=== PATIENT | male | born 1950 | race Caucasian/White ===

== ENCOUNTER 2017-11-19 12:33 | Outpatient (CLI) | payer MEDICARE ==
--- NOTE | 2017-11-19 14:28 | RAD ---
PA AND LATERAL CHEST X-RAY: 11/19/2017 HISTORY: Dyspnea. COMPARISON: 08/05/2017 FINDINGS: The cardiac silhouette is mildly enlarged. The pulmonary vasculature is within normal limits. There is lucency again present within the right upper lobe and right lung apex, likely related to bullous emphysematous changes. There is an area of increased density again seen overlying the lateral left l doni base, probably related to an area of scarring or pleural thickening. There is slight blunting of the right lateral costophrenic angle, which could be related to a tiny right pleural effusion. The lungs are otherwise clear. Vascular calcification is again seen in the thoracic aorta. No other int erval change. IMPRESSION: 1. Suggestion of tiny right pleural effusion and atelectasis. 2. Mild chronic lung changes. 3. Cardiomegaly. 4. Post surgical changes, upper abdomen. POS: [facility]
== END 2017-11-19 12:34 | disposition home or self-care (01) ==
LOC: RAD 12:33
PROVIDERS: ATTEND Internal Medicine Critical Care Medicine
DX: R06.00 Dyspnea, unspecified (principal); I51.7 Cardiomegaly; Z98.890 Other specified postprocedural states
CPT/HCPCS: 71046

== ENCOUNTER 2017-12-26 06:50 | Outpatient (CLI) | payer MEDICARE ==
[2017-12-26 11:52] LABS: #Eosinphils 0.2 thou/uL (0.0-0.7); #Neutrophils 4.1 thou/uL (1.40-6.50); %Basophils 0.7 % (0.0-1.0); %Lymphocytes 27.4 % (21.0-51.0); %Monocytes 12.9 % (0.0-10.0); %Neutrophils 56.1 % (42.0-75.0); Hemoglobin 15.4 g/dL (14.0-18.0); Mean Corpuscular HGB CONC 32.6 g/dL (32.0-36.0); Mean Platelet Volume 6.8 fL (7.4-10.4); Platelet Count 245 thou/uL (130-400); RBC Distribution Width 13.1 % (11.5-14.5); White Blood Cell (WBC) Count 7.4 thou/uL (4.8-10.8)
[2017-12-26 12:36] LABS: Anion Gap 18 mmol/L (10-20); BUN (Urea Nitrogen) 26 mg/dL (8.4-25.7); Calc. Creatinine Clearance 0 mL/min (70-130); Calcium 9.5 mg/dL (7.8-10.44); Carbon Dioxide 27 mmol/L (23-31); Chloride 94 mmol/L (98-107); Estimated GFR-MDRD 50; Glucose 106 mg/dL (80-115); Potassium 3.6 mmol/L (3.5-5.1); Sodium 135 mmol/L (136-145)
== END 2017-12-26 06:51 | disposition home or self-care (01) ==
LOC: LAB 06:50
PROVIDERS: ATTEND Nurse Practitioner Family
DX: I50.20 Unspecified systolic (congestive) heart failure (principal); N18.2 Chronic kidney disease, stage 2 (mild)
CPT/HCPCS: 36415; 80048; 85025

== ENCOUNTER 2019-01-11 03:56 | Inpatient (IN) | payer MEDICARE ==
[2019-01-11 04:27] LABS: #Lymphocytes 0.7 thou/uL (1.20-3.40); #Monocytes 0.8 thou/uL (0.11-0.59); #Neutrophils 6.5 thou/uL (1.40-6.50); %Basophils 0.4 % (0.0-1.0); %Eosinophils 0.2 % (0.0-10.0); %Lymphocytes 9.1 % (21.0-51.0); %Monocytes 9.6 % (0.0-10.0); %Neutrophils 80.7 % (42.0-75.0); Hemoglobin 13.2 g/dL (14.0-18.0); Mean Corpuscular HGB CONC 33.3 g/dL (32.0-36.0); Mean Corpuscular Hemoglobin 30.4 pg (27.0-31.0); Mean Corpuscular Volume 91.5 fL (78.0-98.0); Mean Platelet Volume 7.1 fL (7.4-10.4); Platelet Count 201 thou/uL (130-400); RBC Distribution Width 12.4 % (11.5-14.5); Red Blood Cell (RBC) Count 4.35 mill/uL (4.70-6.10); White Blood Cell (WBC) Count 8.1 thou/uL (4.8-10.8)
[2019-01-11] MEDS ORDERED: methylPREDNISolone Sod Succ/PF 125 MG/2 ML VIAL ONE (04:37)
[2019-01-11 04:50] LABS: ALT (SGPT) 21 U/L (8-55); AST (SGOT) 21 U/L (5-34); Alkaline Phosphatase 84 U/L (40-150); Anion Gap 14 mmol/L (10-20); BUN (Urea Nitrogen) 16 mg/dL (8.4-25.7); Calc. Creatinine Clearance 0 mL/min (70-130); Calcium 8.9 mg/dL (7.8-10.44); Carbon Dioxide 25 mmol/L (23-31); Chloride 98 mmol/L (98-107); Estimated GFR-MDRD 60; Globulin 3.1 g/dL (2.4-3.5); Glucose 137 mg/dL (80-115); Potassium 3.5 mmol/L (3.5-5.1); Protein, Total 7.1 g/dL (5.8-8.1); Sodium 133 mmol/L (136-145)
[2019-01-11 05:12] LABS: CKMB 2.7 ng/mL (0-6.6)
[2019-01-11] MEDS ORDERED: Lorazepam 2 MG/ML VIAL ONE (05:13)
[2019-01-11] MEDS ORDERED: Digoxin 0.5 MG/2 ML AMP ONE (07:11)
[2019-01-11] MEDS ORDERED: Enoxaparin Sodium 100 MG/ML SYRINGE ONE (07:11)
[2019-01-11] MEDS ORDERED: Diltiazem 125 MG in Sodium Chloride 0.9% 100 ML IVPB SCH (07:45)
[2019-01-11 09:09] LABS: Troponin I 0.108 ng/mL (< 0.028)
[2019-01-11 09:31] LABS: Actual Bicarbonate (HCO3a) 24.2 mEq/L (22-28); Analyzer IN Cardio ER; Base Excess (BEa) -1.1 mEq/L (-2.0 to +3.0); CO2 Tension 42.9 mmHg (35.0-45.0); Calcium, Ionized 1.16 mmol/L (1.12-1.30); Carboxyhemoglobin (COHb) 1.4 gm% (0.0-3.0); Hemoglobin (Hb) 14.1 g/dL (14.0-18.0); O2 Tension (PaO2) 77.3 mmHg (> 80.0); Potassium - ABG Lab 3.71 mmol/L (3.70-5.30); pH, Arterial 7.37 (7.35-7.45)
[2019-01-11 09:35] LABS: ALV-art Gradient 68.715 (0-20); Puncture Site RRA
[2019-01-11] MEDS ORDERED: Acetaminophen 325 MG TAB PO PRN (09:38)
[2019-01-11] MEDS ORDERED: Nitroglycerin 0.4 MG TAB (25 Tab Bottle) PO PRN (09:38)
[2019-01-11] MEDS ORDERED: Ondansetron ODT 4 MG TAB PO PRN (09:38)
[2019-01-11] MEDS ORDERED: Senokot S 8.6-50 MG TAB PO PRN (09:38)
--- NOTE | 2019-01-11 10:06 | RAD ---
PORTABLE CHEST: Date: 01/11/19 HISTORY: Cough, dyspnea. COMPARISON: 12/08/17 study. FINDINGS: Heart size is enlarged. There are atherosclerotic changes of the aorta. The lungs are clear of infilt rates. No signs of failure. IMPRESSION: Cardiomegaly. POS: C
--- NOTE | 2019-01-11 10:57 | HP ---
PRIMARY CARE PHYSICIAN: Dr. Moody Whipple. REASON FOR CONSULTATION: Worsening shortness of breath. HISTORY OF PRESENT ILLNESS: A 68-year-old male with known history of COPD, chronic hypoxia, who is supposed to be on oxygen but not compliant, cardiomyopathy with last echo showing EF of 25% to 30%, who presents to the ER with worsening shortness of breath since 3 to 4 days prior to presentation. The patient reportedly developed upper respiratory infection associated with fever and chills as well as cough and shortness of breath about 4 days ago. This was associated with worsening shortness of breath, which gets worse after coughing spell. He also reported pleuritic chest pain. He has been compliant with oxygen therapy, but earlier today symptoms got worse, such that he had difficulty breathing, hence he presented to the emergency room. On presentation, the patient was found to have tachycardia, tachypnea and further evaluation with EKG showed atrial fibrillation with rapid ventricular response. The patient received Cardizem IV push 10 mg, which was subsequently associated with drop in blood pressure to low 100s, hence loading dose of digoxin was given. He also received Lovenox anticoagulation given mild elevation in troponin as well as Solu-Medrol and . He was subsequently started on Cardizem infusion. Noteworthy, the patient was afebrile on presentation. He continues to have cough. He denied worsening shortness of breath, orthopnea, palpitations, PND, focal weakness, headache, nausea, vomiting, change in bowel habit, hematochezia, hematemesis, or melena. He admitted to mild dysuria, but denied hematuria. PAST MEDICAL HISTORY: 1. COPD. 2. Chronic hypoxia, on home oxygen. 3. Cardiomyopathy with ejection fraction of 25% to 30% on last echo. 4. Obesity, status post gastric bypass. 5. Type 2 diabetes mellitus, which resolved after gastric bypass. PAST SURGICAL HISTORY: Gastric bypass. 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 He is a former smoker. Used to smoke two packs per day for about 45 years, quit about 6 years ago. He lives with family. He wants to be full code with son being the surrogate decision maker. FAMILY HISTORY: Reviewed, but noncontributory. ALLERGIES: NO KNOWN DRUG ALLERGIES REPORTED. HOME MEDICATIONS: 1. Advil PM one daily at bedtime as needed. 2. Flomax 0.4 mg daily at bedtime. 3. Aspirin 81 mg daily. 4. Lipitor 10 mg daily at bedtime. 5. Coreg 6.25 b.i.d. 6. Furosemide 40 mg b.i.d. 7. Lisinopril 5 mg p.o. daily. 8. Dulera one puff inhalation b.i.d. REVIEW OF SYSTEMS: A 12-point review of system performed was negative other than pertinent positives and negatives included in the history of present illness. PHYSICAL EXAMINATION: VITAL SIGNS: Initial vitals on presentation to the ER showed BP of 102/68, pulse 116, respiratory rate 22, SpO2 93 on room air, temperature 98.6. Most current vitals showed BP 121/88, pulse 114, respiratory rate 18, temperature 98, SpO2 94 on 2 L nasal cannula. GENERAL: Obese male, in [id number] respiratory distress. Afebrile, anicteric, acyanotic. HEENT: Normocephalic, atraumatic. Pupils are reacting to light. Oral mucosa is moist. Conversational dyspnea noted. NECK: Supple. Nontender with good range of motion. No JVD or masses or lymphadenopathy appreciated. CARDIOVASCULAR: Irregular rhythm and rate with normal heart sounds one and two. Tachycardic. No obvious murmur was appreciated. RESPIRATORY: Diminished air movement with tachypnea and increased work of breathing appreciated. No obvious rhonchi was appreciated. GI: Obese, soft, nontender, nondistended with normal bowel sounds. EXTREMITIES: Grossly normal looking atraumatic with mild to moderate bilateral leg edema. Distal pulses were palpable. NEUROLOGIC: Conscious, alert, oriented x3 with appropriate mental status. Cranial nerves 2 through 12 are intact. The patient is conversational and moves all extremities. PSYCHIATRIC: Normal affect and cooperative. DIAGNOSTIC DATA: CBC showed WBC count of 8.1, hemoglobin of 13.2, MCV of 91.5, platelet of 201. CMP showed sodium 133, potassium 3.5, chloride 98, CO2 of 25, BUN 16, creatinine 1.20, glucose 137, calcium 8.9, total bilirubin 2.0, AST 21, ALT 21, alkaline phosphatase 84, total protein 7.1, albumin 4.0, globulin 3.1. Cardiac enzymes showed CK 22.7. Initial troponin 0.136. BNP 1518.1. Repeat troponin 4 hours later showed 0.108. EKG x3 showed atrial fibrillation with rapid ventricular response with rate ranging from 112 to 117. No obvious ischemic changes were noted. Chest x-ray reviewed by me showed cardiomegaly with no obvious lung opacity or consolidation or effusion. IMPRESSION: 1. Acute respiratory failure: This most likely due to chronic obstructive pulmonary disease exacerbation with possible contribution from congestive heart failure exacerbation. 2. Chronic obstructive pulmonary disease exacerbation. 3. Acute on chronic systolic heart failure: Etiology is unclear, but [id number] myocardial infarction and new onset atrial fibrillation seems likely. 4. Possible aof-IO-ecsksovbu myocardial infarction. 5. New onset atrial fibrillation with rapid ventricular response. 6. History of ventricular tachycardia. 7. Hyperglycemia. PLAN: 1. We will continue oxygen supplementation. 2. We will also start the patient on bronchodilators and steroids. 3. Antithrombotic therapy with Lovenox and aspirin will be commenced. 4. We will also get serial troponin. 5. Antibiotic therapy with Levaquin for COPD will also be commenced. 6. We will also get sputum culture. Cardiology consult will be requested. 7. We will also get echocardiogram to reassess cardiac function. 8. We will continue Cardizem infusion and to get adequate rate control. Heart healthy diet will be commenced. 9. Ethics: The patient wants to be full code. Son is the surrogate decision maker. Further treatment and recommendation to follow depending on hospital course. It is anticipated the patient will be hospitalized for more than 3 days. Job ID: [id number]
[2019-01-11] MEDS: Furosemide 40 MG TAB PO SCH (14:51)
[2019-01-11] MEDS ORDERED: Bacteriostatic Water 30 ML VIAL FS PRN (14:59)
[2019-01-11] MEDS ORDERED: methylPREDNISolone Sod Succ 40 MG VIAL IVP SCH (15:00)
[2019-01-11] MEDS: methylPREDNISolone Sod Succ/PF 125 MG/2 ML VIAL IVP SCH ×2 (15:00→15:05)
--- NOTE | 2019-01-11 17:47 | CON ---
DATE OF CONSULTATION: 01/11/2019 REASON FOR CONSULTATION: Atrial fibrillation and heart failure. HISTORY OF PRESENT ILLNESS: Mr. Pérez is a 68-year-old white gentleman, who comes to the hospital for worsening shortness of breath. He has a history of nonischemic cardiomyopathy. His EF last was at 25% to 30%. He was followed by Dr. Perez a year ago. He had a heart catheterization that showed mild coronary artery disease. Diagnosed with nonischemic cardiomyopathy. He was started on medications. Followup in the office, placed on a LifeVest. Three months later, repeat echo showed persistent reduced EF, so he was offered an AICD. 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 He comes in today as he has stopped all his medications for the last year and he was only taking the Lasix. He has noted worsening of his shortness of breath in the last few days. PAST MEDICAL HISTORY: 1. COPD. 2. Nonischemic cardiomyopathy, EF at 25% on most recent echo about a year ago. 3. Obesity. 4. Type 2 diabetes resolved after gastric bypass. SURGICAL HISTORY: 1. Gastric bypass. 2. Left heart catheterization. 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 No alcohol or drugs. FAMILY HISTORY: Noncontributory. OUTPATIENT MEDICATIONS: 1. Advil PM. 2. Flomax. 3. Aspirin 81 a day. 4. Lipitor 10 a day. 5. Coreg 6.25 b.i.d. 6. Lasix 40 mg b.i.d. 7. Lisinopril 5 mg a day. 8. Dulera inhalation. 9. He has not been taking any medication except Lasix. ALLERGIES: NO KNOWN DRUG ALLERGIES. REVIEW OF SYSTEMS: A 12-point review of systems was done and was all negative unless stated in the history of present illness. PHYSICAL EXAMINATION: VITAL SIGNS: Temperature 97.4, pulse 106, respiratory rate 25, saturating 94% on 2 L, and blood pressure 129/72. GENERAL: Awake, alert, oriented x3. No distress. HEENT: Normocephalic and atraumatic. NECK: Supple. LUNGS: Reduced breath sounds bilaterally. CARDIOVASCULAR: S1, S2. No S3 or S4. No murmurs. ABDOMEN: Soft. Positive bowel sounds. EXTREMITIES: 1+ edema. SKIN: Warm and dry. LABORATORY DATA: Laboratory work was reviewed. CBC, ABG and chemistries were reviewed. Troponin is indeterminate range at 0.1, 0.1. BNP was 1518. EKG was reviewed. Chest x-ray was reviewed. ASSESSMENT/PLAN: 1. Acute on chronic systolic heart failure. 2. Nonischemic cardiomyopathy, severely dilated LV with EF of 25% last evaluation a year ago. 3. Chronic obstructive pulmonary disease. 4. Noncompliance. PLAN: 1. Continue IV diuresis with IV Lasix. 2. He would be a candidate for an AICD. 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 3. Heart rate is in the 120s to 130s. It seems at times in sinus tachycardia. He may have a little bit of MS. He has had a lot of baseline artifact. It is very hard to tell. At times it looks like atrial fibrillation as well. 4. We will get an echocardiogram and we will get an EP consultation to see what thing about this rhythm. He may just need to be on amiodarone and a blood thinner. Thank you for letting us to participate in care of this patient. We will follow. Job ID: [id number]
[2019-01-11 18:23] LABS: Bilirubin Negative (Negative); Blood, Urine Negative (Negative); Clarity CLEAR (Clear); Glucose, Urine (Dipstick) 100 mg/dL (Negative); Leukocyte Negative (Negative); Nitrite Negative (Negative); Protein, Urine (Dipstick) Negative (Neg-Trace)
[2019-01-11 18:25] LABS: Bacteria/HPF None Seen HPF (None Seen); Hyaline Casts/LPF 0-3 HYALINE CAST LPF (0-3 Hyaline); RBC/HPF 0-3 HPF (0-3); Squamous Epithelial None Seen HPF (0-3); WBC/HPF None Seen HPF (0-3)
[2019-01-11 18:27] LABS: Urine Culture Reflex No No
[2019-01-11] MEDS ORDERED: methylPREDNISolone Sod Succ/PF 125 MG/2 ML VIAL IVP SCH (20:00)
[2019-01-11] MEDS ORDERED: Enoxaparin Sodium 80 MG/0.8 ML SYRINGE SC SCH (21:00)
[2019-01-11] MEDS: Atorvastatin Calcium 40 MG TAB PO SCH (21:26)
[2019-01-11] MEDS: guaiFENesin ER 600 MG TAB PO SCH (21:26)
[2019-01-11] MEDS: Famotidine 20 MG TAB PO SCH (21:26)
[2019-01-11] MEDS: Enoxaparin Sodium 100 MG/ML SYRINGE SC SCH (21:27)
[2019-01-11] MEDS: Tamsulosin HCl 0.4 MG CAP PO SCH (21:27)
[2019-01-11] MEDS: Famotidine/PF 20 mg/2ml Vial SLOW IVP SCH (21:27)
[2019-01-12] MEDS: methylPREDNISolone Sod Succ 40 MG VIAL IVP SCH ×3 (00:19→17:49)
[2019-01-12 05:20] LABS: #Lymphocytes 0.7 thou/uL (1.20-3.40); #Monocytes 0.5 thou/uL (0.11-0.59); #Neutrophils 6.3 thou/uL (1.40-6.50); %Eosinophils 0.1 % (0.0-10.0); %Lymphocytes 8.9 % (21.0-51.0); %Monocytes 7.2 % (0.0-10.0); %Neutrophils 83.8 % (42.0-75.0); Hemoglobin 12.7 g/dL (14.0-18.0); Mean Corpuscular HGB CONC 33.7 g/dL (32.0-36.0); Platelet Count 211 thou/uL (130-400); RBC Distribution Width 12.2 % (11.5-14.5); Red Blood Cell (RBC) Count 4.09 mill/uL (4.70-6.10); White Blood Cell (WBC) Count 7.5 thou/uL (4.8-10.8)
[2019-01-12 05:43] LABS: ALT (SGPT) 21 U/L (8-55); AST (SGOT) 27 U/L (5-34); Albumin 3.8 g/dL (3.4-4.8); Alkaline Phosphatase 72 U/L (40-150); Anion Gap 12 mmol/L (10-20); BUN (Urea Nitrogen) 20 mg/dL (8.4-25.7); Bilirubin, Total 1.2 mg/dL (0.2-1.2); Calc. Creatinine Clearance 85 mL/min (70-130); Calcium 8.8 mg/dL (7.8-10.44); Carbon Dioxide 28 mmol/L (23-31); Chloride 99 mmol/L (98-107); Estimated GFR-MDRD 66; Globulin 2.8 g/dL (2.4-3.5); Glucose 172 mg/dL (80-115); Protein, Total 6.6 g/dL (5.8-8.1); Sodium 135 mmol/L (136-145)
[2019-01-12] MEDS ORDERED: Chloraseptic Spray 180 ml Bottle PO PRN (08:22)
[2019-01-12] MEDS: Famotidine 20 MG TAB PO SCH ×2 (08:58→20:49)
[2019-01-12] MEDS: Aspirin Chewable 81 MG TAB PO SCH (08:58)
[2019-01-12] MEDS: guaiFENesin ER 600 MG TAB PO SCH ×2 (08:58→20:49)
[2019-01-12] MEDS: Furosemide 40 MG TAB PO SCH ×2 (08:59→14:40)
[2019-01-12] MEDS: Famotidine/PF 20 mg/2ml Vial SLOW IVP SCH ×2 (09:00→20:50)
[2019-01-12] MEDS: Enoxaparin Sodium 100 MG/ML SYRINGE SC SCH ×2 (09:01→20:50)
--- NOTE | 2019-01-12 11:11 | PDOC.PN ---
- Subjective Encounter Start Date: 01/12/19 Encounter Start Time: 11:09 Patient seen and examined, no new issues, states he's breathing a bit better. All questions answered. - Objective Resuscitation Status - Order Detail: 01/11/19 09:38 Resuscitation Status Routine Resuscitation Status: FULL: Full Resuscitation Vital Signs & Weight: Vital Signs (12 hours) Temp Pulse Resp BP Pulse Ox 01/12/19 08:59 94 L 01/12/19 07:42 97.4 F L 120 H 16 106/58 L 94 L 01/12/19 07:02 100 16 01/12/19 03:03 98.4 F 102 H 20 134/79 98 01/12/19 00:31 97 20 96 Weight Weight 210 lb 14.4 oz Result Diagrams: 01/12/19 05:05 01/12/19 05:05 Phys Exam - Physical Examination Constitutional: NAD HEENT: PERRLA, moist MMs, sclera anicteric Neck: no nodes Respiratory: no rales, no rhonchi, wheezing present (mild) Cardiovascular: no significant murmur, no rub, irregular Gastrointestinal: soft, non-tender, no distention Musculoskeletal: pulses present, edema present (trace) Dx/Plan (1) Afib Code(s): I48.91 - UNSPECIFIED ATRIAL FIBRILLATION Status: Acute (2) Left ventricular dysfunction with reduced left ventricular function Code(s): I51.9 - HEART DISEASE, UNSPECIFIED Status: Acute (3) CKD (chronic kidney disease) stage 3, GFR 30-59 ml/min Code(s): N18.3 - CHRONIC KIDNEY DISEASE, STAGE 3 (MODERATE) Status: Chronic (4) COPD (chronic obstructive pulmonary disease) Status: Chronic - Plan * cont steroids, taper down dose a bit today, still wheezing a bit * cardio also following * monitor for now * possible DC in 24-48hrs * case and plan d/w patient at length, he understood and agreed with this plan
[2019-01-12] MEDS ORDERED: Furosemide 40 MG/4 ML VIAL SLOW IVP SCH (16:30)
--- NOTE | 2019-01-12 18:28 | PDOC.CTH ---
Cardiology Progress Note - Subjective No new issues. Not diuresing well. - Objective Vital Signs Temp Pulse Resp BP Pulse Ox 01/12/19 16:11 98.2 F 150 H 20 144/72 H 93 L 01/12/19 13:42 130 H 18 01/12/19 12:41 97.9 F 131 H 24 H 135/65 95 01/12/19 08:59 94 L 01/12/19 07:42 97.4 F L 120 H 16 106/58 L 94 L 01/12/19 07:02 100 16 Weight 210 lb 14.4 oz - Physical Examination General/Neuro: alert & oriented x3, NAD Neck: no JVD present Lungs: unlabored respirations, other: (reduced breath sounds. ) Heart: other: (irreg oirreg) Abdomen: soft Extremities: + edema B (1+) - Telemetry Telemetry Rhythm: Afib HR 130's. - Labs Result Diagrams: 01/12/19 05:05 01/12/19 05:05 Troponin/CKMB CK-MB (CK-2) 2.7 ng/mL (0-6.6) 01/11/19 04:19 Troponin I 0.108 ng/mL (< 0.028) H 01/11/19 08:33 - Assessment/Plan 1. Afib RVR 2. Acute on chronic systolic heart failure. 3. Non ischemic dilatd CM EF 20-25% on echo yesterday. 4. COPD 5. Non compliance PLAN: - Still not rate controlled. Will start Amiodarone drip and will plan on SELWYN Cardioversion tomorrow. Continue full anticoagulation. - IV lasix. - Continues to not be interested in an AICD.
[2019-01-12] MEDS: Atorvastatin Calcium 40 MG TAB PO SCH (20:49)
[2019-01-12] MEDS: Tamsulosin HCl 0.4 MG CAP PO SCH (20:49)
[2019-01-13] MEDS: Furosemide 40 MG/4 ML VIAL SLOW IVP SCH ×2 (04:41→14:24)
[2019-01-13] MEDS: methylPREDNISolone Sod Succ 40 MG VIAL IVP SCH ×2 (05:30→18:15)
[2019-01-13] MEDS: Famotidine/PF 20 mg/2ml Vial SLOW IVP SCH ×2 (09:26→20:19)
[2019-01-13] MEDS: guaiFENesin ER 600 MG TAB PO SCH ×2 (09:26→20:18)
[2019-01-13] MEDS: Famotidine 20 MG TAB PO SCH ×2 (09:26→20:19)
[2019-01-13] MEDS: Enoxaparin Sodium 100 MG/ML SYRINGE SC SCH (09:26)
[2019-01-13] MEDS ORDERED: PROPOFOL 200 MG/20 ML VIAL ONE (11:07)
--- NOTE | 2019-01-13 11:12 | PDOC.PN ---
- Subjective Encounter Start Date: 01/13/19 Encounter Start Time: 11:10 Patient seen and examined, no new issues or complaints. All questions answered. - Objective Resuscitation Status - Order Detail: 01/11/19 09:38 Resuscitation Status Routine Resuscitation Status: FULL: Full Resuscitation Vital Signs & Weight: Vital Signs (12 hours) Temp Pulse Resp BP BP Pulse Ox 01/13/19 07:29 97.4 F L 135 H 18 106/79 97 01/13/19 06:44 90 16 01/13/19 03:11 97.7 F 123 H 16 102/66 93 L 01/13/19 00:37 117 H 16 94 L Weight Weight 210 lb 14.4 oz Result Diagrams: 01/12/19 05:05 01/12/19 05:05 Phys Exam - Physical Examination Constitutional: NAD HEENT: PERRLA, moist MMs, sclera anicteric Neck: no nodes Respiratory: no wheezing, no rales, no rhonchi Cardiovascular: no significant murmur, irregular Gastrointestinal: soft, non-tender, no distention, positive bowel sounds Musculoskeletal: pulses present, edema present Dx/Plan (1) Afib Code(s): I48.91 - UNSPECIFIED ATRIAL FIBRILLATION Status: Acute (2) Left ventricular dysfunction with reduced left ventricular function Code(s): I51.9 - HEART DISEASE, UNSPECIFIED Status: Acute (3) CKD (chronic kidney disease) stage 3, GFR 30-59 ml/min Code(s): N18.3 - CHRONIC KIDNEY DISEASE, STAGE 3 (MODERATE) Status: Chronic (4) COPD (chronic obstructive pulmonary disease) Status: Chronic - Plan * on Amio * cardioversion planned for today * no changes in plan of care for now * will taper steroids down to 20mg IV q12hrs for now and transition to PO in aM * cont current management of care * case and plan d/w patient at length, he understood and agreed with this plan
[2019-01-13] MEDS ORDERED: PROPOFOL 0 ML ONE (12:35)
[2019-01-13] MEDS ORDERED: Phenylephrine HCL 10 MG/ML VIAL ONE (12:36)
[2019-01-13] MEDS ORDERED: PROPOFOL 20 ML ONE (12:37)
[2019-01-13] MEDS ORDERED: Benzocaine 20% Spray 60 ML CAN ONE (12:39)
--- NOTE | 2019-01-13 13:10 | OP ---
DATE OF SERVICE: 01/13/19 PREPROCEDURE DIAGNOSIS: Atrial fibrillation with RVR. PROCEDURES PERFORMED: Direct current synchronized cardioversion. SUMMARY: The patient is a 68-year-old white gentleman who comes to the hospital for heart failure and atrial f ibrillation with RVR. He was brought down to the outpatient area for planned SELWYN cardioversion. SELWYN was done previously, please see notes for details. After the patient was fully sedated by the anesthesia department, one single AICD shock was delivered successfully converting him from atrial fibrillation into sinus rhythm with PACs. The patient tolera nancy the procedure well. RECOMMENDATIONS: Continued full anticoagulation. Amiodarone load. May go home in the next 24 to 48 hours.
[2019-01-13] MEDS: Aspirin Chewable 81 MG TAB PO SCH (14:24)
[2019-01-13] MEDS ORDERED: Amiodarone HCl 150 MG in Dextrose 5% in Water 100 ML IVPB SCH (18:15)
[2019-01-13] MEDS: Amiodarone 450 MG in Dextrose 5% in Water 250 ML IVPB SCH (18:40)
[2019-01-13] MEDS: Apixaban 5 MG TAB PO SCH (20:17)
[2019-01-13] MEDS: Tamsulosin HCl 0.4 MG CAP PO SCH (20:18)
[2019-01-13] MEDS: Atorvastatin Calcium 40 MG TAB PO SCH (20:18)
[2019-01-13] MEDS ORDERED: Amiodarone 200 MG TAB PO SCH (21:00)
[2019-01-14] MEDS ORDERED: Amiodarone 200 MG TAB PO SCH (02:00)
[2019-01-14] MEDS: Amiodarone 450 MG in Dextrose 5% in Water 250 ML IVPB SCH (03:34)
[2019-01-14] MEDS: methylPREDNISolone Sod Succ 40 MG VIAL IVP SCH ×2 (05:46→17:00)
[2019-01-14] MEDS: Ondansetron PF 4 MG/2 ML Vial IVP PRN ×2 (05:52→22:13)
[2019-01-14] MEDS: Furosemide 40 MG/4 ML VIAL SLOW IVP SCH (05:54)
[2019-01-14] MEDS: Famotidine/PF 20 mg/2ml Vial SLOW IVP SCH (08:41)
[2019-01-14] MEDS: Apixaban 5 MG TAB PO SCH (08:41)
[2019-01-14] MEDS: Famotidine 20 MG TAB PO SCH (08:41)
[2019-01-14] MEDS: guaiFENesin ER 600 MG TAB PO SCH (08:41)
[2019-01-14] MEDS: Carvedilol 3.125 MG TAB PO SCH ×2 (08:41→17:00)
[2019-01-14] MEDS: Aspirin Chewable 81 MG TAB PO SCH (08:41)
[2019-01-14 10:26] LABS: Hemoglobin 12.8 g/dL (14.0-18.0); Platelet Count 244 thou/uL (130-400)
[2019-01-14 10:50] LABS: Anion Gap 13 mmol/L (10-20); BUN (Urea Nitrogen) 39 mg/dL (8.4-25.7); Calc. Creatinine Clearance 59 mL/min (70-130); Carbon Dioxide 30 mmol/L (23-31); Chloride 93 mmol/L (98-107); Estimated GFR-MDRD 42; Glucose 240 mg/dL (80-115); Potassium 4.1 mmol/L (3.5-5.1); Sodium 132 mmol/L (136-145)
--- NOTE | 2019-01-14 16:34 | PRG ---
DATE OF SERVICE: 01/14/2019 SUBJECTIVE: A 68-year-old male with COPD, chronic hypoxic respiratory failure, and cardiomyopathy, was admitted on 01/11/2019 with worsening shortness of breath. His workup was consistent with COPD and CHF exacerbation. Echocardiogram was obtained, that showed ejection fraction of 20% to 25% with mild tricuspid regurgitation, moderately dilated left atrium. He has been evaluated by Cardiology this admission as well. He is currently on amiodarone drip for atrial fibrillation with rapid ventricular response. He underwent SELWYN cardioversion, converting into sinus rhythm. However, this morning, he is back in atrial fibrillation. He denies any chest pain. He continues to have shortness of breath. No cough or wheezing reported. REVIEW OF SYSTEMS: No nausea, vomiting, diarrhea, or focal neurologic deficit reported. CURRENT MEDICATIONS: Reviewed. The patient is on amiodarone drip along with; 1. Levaquin. 2. Eliquis. 3. Lipitor. 4. Carvedilol. 5. IV Lasix. OBJECTIVE: VITAL SIGNS: Temperature 97.2, pulse rate of 106, respirations of 18, blood pressure 127/64, and O2 saturation 92% on 2L nasal cannula. Intake of 465, output 1050, weight of 214 pounds. GENERAL: A 68-year-old male, in mild respiratory distress, able to complete short phrases. HEENT: Head, atraumatic and normocephalic. Sclerae anicteric. Moist mucous membranes. NECK: Supple. JVP elevated. No carotid bruit. LUNGS: Scattered rhonchi with rales at bases. Mild accessory muscle use. Lungs are symmetrical. HEART: S1 and S2 present. Irregularly irregular. A 2/6 systolic murmur over the mitral area. ABDOMEN: Soft and nontender. Bowel sounds present. EXTREMITIES: Bilateral lower extremity 1+ edema. No calf tenderness. NEUROLOGIC: Grossly nonfocal. Moves all 4 extremities. PSYCHIATRIC: Alert, awake, and oriented x3. LABORATORY DATA: Creatinine 1.63 with BUN 39, sodium 132, potassium 4.1, chloride 93, bicarb 30. Hemoglobin 12.8 and hematocrit 39.3. TSH 0.26. Urinalysis was negative. Respiratory culture showed many gram-positive cocci in pairs, chains, and clusters. Telemetry monitoring by my review showed atrial fibrillation. Chest x-ray from admission showed cardiomegaly. IMPRESSION: 1. Acute hypoxic respiratory failure secondary to congestive heart failure/chronic obstructive pulmonary disease exacerbation. 2. Acute on chronic systolic heart failure exacerbation. 3. Atrial fibrillation with rapid ventricular response. 4. Chronic anticoagulation. 5. Elevated troponin secondary to demand ischemia/type 2 myocardial infarction. 6. Acute kidney injury on chronic kidney disease, stage 2. 7. Chronic anemia. 8. History of diabetes mellitus, type 2. 9. Obesity with a body mass index of 30.8. 10. Hypertension. 11. Mild hyponatremia. 12. Abnormal liver function tests secondary to passive hepatic congestion, improving. PLAN: The patient will be monitored on the telemetry unit. We will continue IV steroids. We will consult Pulmonary, Dr. Rendon, due to persistent respiratory distress. Continue anticoagulation. Due to acute kidney injury, we will hold diuretic. Hold GADIEL inhibitor for now. We will adjust levofloxacin dose for renal insufficiency. We will recheck labs in a.m. Plan of care was discussed with the patient in detail. He stated understanding. Job ID: [id number]
[2019-01-14] MEDS: Melatonin 3 MG TAB PO PRN (16:59)
--- NOTE | 2019-01-14 17:21 | PDOC.CTH ---
Cardiology Progress Note - Subjective No new issues. - Objective Vital Signs Temp Pulse Resp BP BP Pulse Ox 01/14/19 15:05 97.5 F L 99 20 122/90 92 L 01/14/19 13:29 72 16 97 01/14/19 12:40 97.2 F L 106 H 18 127/64 92 L 01/14/19 07:33 112 H 16 95 01/14/19 07:15 97.3 F L 73 20 103/70 95 01/14/19 06:04 112 H 18 124/68 93 L Weight 214 lb 6.4 oz 01/13/19 01/14/19 01/15/19 06:59 06:59 06:59 Intake Total 465 Output Total 1050 Balance -585 - Physical Examination General/Neuro: alert & oriented x3, NAD Neck: no JVD present Lungs: unlabored respirations Heart: other: (Irreg irreg) Abdomen: NT/ND Extremities: + edema B (1+) - Telemetry Telemetry Rhythm: Afib HR 90-120 - Labs Result Diagrams: 01/14/19 10:16 01/14/19 10:16 Troponin/CKMB CK-MB (CK-2) 2.7 ng/mL (0-6.6) 01/11/19 04:19 Troponin I 0.108 ng/mL (< 0.028) H 01/11/19 08:33 - Assessment/Plan 1. Afib RVR 2. Acute on chronic systolic heart failure. 3. Non ischemic dilatd CM EF 20-25% on echo yesterday. 4. COPD 5. Non compliance PLAN: - Still not rate controlled. Will add digoxin to regimen. - Switch to PO lasix. - Continues to not be interested in an AICD. - Failed Cardioversion as he converted back to afib. He has very dilated right and left atria so unlikely to maintain sinus rhythm. Rate control for now. Once achieved may switch to Eliquis and PO amio load and d/c home.
[2019-01-14] MEDS ORDERED: Sodium Chloride 0.9% 1,000 ML IV SCH (17:30)
--- NOTE | 2019-01-14 19:03 | CON ---
DATE OF CONSULTATION: 01/14/2019 HISTORY OF PRESENT ILLNESS: Mr. Pérez is a gentleman, who was seen once in the office. He is 68 years old. He has significant chronic obstructive pulmonary disease. I started him on several different medications, which he took for several weeks, and then says he ended up in the hospital. He says he thought it maybe a long diagnosis and that he did not have COPD because he was found that he had some heart issues. He decided to start taking his heart medicines and stop all of his inhalers. He eventually stopped taking all of his cardiac medications. He would not wear defibrillator. He says he has been feeling poorly for the last year and subsequently came in again with complaints of shortness of breath. PAST MEDICAL HISTORY: 1. Remarkable for COPD. 2. History of ejection fraction of 25%. 3. History of obesity. 4. History of diabetes. 5. History of gastric bypass surgery. 6. History of heart catheterization in the past showing mild coronary disease. 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 He states that he has been smoking for several years. He was a 2-krax-e-day smoker most of his life. Not a daily drinker. FAMILY HISTORY: Negative for lung disease in early age. MEDICATIONS: Prior to admission, he is on, 1. Flomax. 2. Aspirin. 3. Lipitor. 4. Coreg. 5. Lasix. 6. Lisinopril. 7. Dulera, but the only thing he was taking is Lasix. ALLERGIES: THERE ARE NO DRUG ALLERGIES. REVIEW OF SYSTEMS: Ten-point review of systems completed, is negative. PHYSICAL EXAMINATION: VITAL SIGNS: Afebrile, heart rate is 99, respiratory rate 20, oximetry is 92% on 2 L, blood pressure 122/90. HEENT: Pupils are equal. Sclerae are anicteric. NECK: Supple. No lymphadenopathy. LUNGS: Remarkable for distant breath sounds with slightly prolonged expiratory phase. HEART: Regular rhythm. No S3. Grade 2/6 systolic murmur. ABDOMEN: Soft and nontender. EXTREMITIES: Without clubbing, cyanosis, or edema. NEUROLOGIC: Grossly nonfocal. LABORATORY DATA: White count 7.1 on the 1st, hemoglobin is 12.7, platelets 211, 000. Sodium 132, potassium 4.1, chloride 93, bicarb 30, BUN 39, creatinine 1.63. Creatinine 1.11 on admission. Intake and output were recorded coming in today, negative 585. There are no intake or output recorded for the last 3 days. Echocardiogram shows ejection fraction 20% to 25% at best, he is in atrial fibrillation. He has undergone a cardioversion today a SELWYN. IMPRESSION: 1. Chronic obstructive pulmonary disease with exacerbation. 2. Congestive heart failure with minimal pulmonary edema on chest radiograph on presentation. 3. Intravascular volume depletion, most likely secondary to diuresis since admission. Probably atrial fibrillation and chronic obstructive pulmonary disease exacerbation were more of a cause of his dyspnea than congestive heart failure as per my review of the x-ray on admission. 4. Medical compliance . We switched to his steroids in the morning. I just noticed some reported home medicine that he was on Adderall. I see no reason for him to be on Adderall . Critical care time is 90 minutes. Job ID: [id number]
[2019-01-14] MEDS ORDERED: Famotidine 20 MG TAB PO SCH (21:00)
[2019-01-14] MEDS ORDERED: Cefdinir 300 MG CAP PO SCH (21:00)
[2019-01-14] MEDS ORDERED: Doxycycline 100 MG CAP PO SCH (21:00)
--- NOTE | 2019-01-14 21:18 | PDOC.EVN ---
Event Note - Event Note Event Note: Paged by RN pt. has been hypotensive, with sustained systolic in the 70's , symptomatic, increased cr , might be in the dry side, also reported having black stools, will repeat labs, hydrate with caution, and monitor closely.
[2019-01-14 21:51] LABS: #Eosinphils 0.1 thou/uL (0.0-0.7); #Monocytes 1.8 thou/uL (0.11-0.59); #Neutrophils 11.8 thou/uL (1.40-6.50); %Basophils 0.3 % (0.0-1.0); %Eosinophils 0.5 % (0.0-10.0); %Monocytes 12.3 % (0.0-10.0); Hemoglobin 13.6 g/dL (14.0-18.0); Mean Corpuscular Hemoglobin 30.3 pg (27.0-31.0); Mean Corpuscular Volume 91.8 fL (78.0-98.0); Mean Platelet Volume 7.7 fL (7.4-10.4); Platelet Count 177 thou/uL (130-400); RBC Distribution Width 12.4 % (11.5-14.5); Red Blood Cell (RBC) Count 4.49 mill/uL (4.70-6.10); White Blood Cell (WBC) Count 14.8 thou/uL (4.8-10.8)
[2019-01-14] MEDS ORDERED: Norepinephrine 8 MG in Dextrose 5% in Water 242 ML IVPB PRN (22:03)
[2019-01-14 22:10] LABS: Anion Gap 24 mmol/L (10-20); BUN (Urea Nitrogen) 49 mg/dL (8.4-25.7); Calc. Creatinine Clearance 41 mL/min (70-130); Calcium 8.7 mg/dL (7.8-10.44); Carbon Dioxide 19 mmol/L (23-31); Chloride 93 mmol/L (98-107); Estimated GFR-MDRD 28; Glucose 165 mg/dL (80-115); Potassium 6.4 mmol/L (3.5-5.1); Sodium 130 mmol/L (136-145)
--- NOTE | 2019-01-14 22:24 | RAD ---
EXAM: Single view of the chest HISTORY: Shortness of breath COMPARISON: 01/11/2019 FINDINGS: Single view of the chest shows an enlarged but stable cardiomediastinal silhouette. Athero sclerotic calcifications are seen in the aorta. There is no evidence of consolidation, mass, or pleural effusion. The bones are unremarkable. IMPRESSION: No evidence of acute cardiopulmonary disease
[2019-01-14] MEDS ORDERED: Dextrose 50% Abboject 50 ML SYRINGE SLOW IVP SCH (22:30)
[2019-01-14] MEDS ORDERED: Calcium Gluconate 4.6 MEQ in Sodium Chloride 0.9% 100 ML IVPB SCH (22:30)
[2019-01-14] MEDS ORDERED: Vancomycin HCl 1 GM in Premix Bag 1 BAG IVPB SCH (23:00)
[2019-01-14 23:04] LABS: Actual Bicarbonate (HCO3a) 20.1 mEq/L (22-28); Base Excess (BEa) -5.8 mEq/L (-2.0 to +3.0); CO2 Tension 40.9 mmHg (35.0-45.0); Calcium, Ionized 1.03 mmol/L (1.12-1.30); Carboxyhemoglobin (COHb) 1.5 gm% (0.0-3.0); Hemoglobin (Hb) 14.4 g/dL (14.0-18.0); O2 Tension (PaO2) 78.9 mmHg (> 80.0); Potassium - ABG Lab 6.28 mmol/L (3.70-5.30); pH, Arterial 7.31 (7.35-7.45)
[2019-01-14 23:05] LABS: ALV-art Gradient 155.175 (0-20); Puncture Site LRADIAL
[2019-01-14] MEDS ORDERED: Sodium Chloride 0.9% 500 ML IV SCH (23:15)
[2019-01-14] MEDS ORDERED: Sodium Bicarb 50 MEQ/50 ML VIAL IVP SCH (23:45)
[2019-01-14] MEDS ORDERED: Sodium Chloride 0.45% 1,000 ML IV SCH (23:45)
[2019-01-14] MEDS ORDERED: Sodium Bicarbonate 100 MEQ in Sodium Chloride 0.45% 1,000 ML IV SCH (23:45)
[2019-01-14] MEDS ORDERED: Sodium Bicarb 50 MEQ/50 ML VIAL ONE (23:56)
[2019-01-14] MEDS ORDERED: Dextrose 5% in Water 1,000 ML IV SCH (23:59)
[2019-01-15] MEDS: guaiFENesin ER 600 MG TAB PO SCH ×3 (00:35→20:33)
[2019-01-15] MEDS: Tamsulosin HCl 0.4 MG CAP PO SCH ×2 (00:35→20:32)
[2019-01-15] MEDS: Atorvastatin Calcium 40 MG TAB PO SCH ×2 (00:36→20:32)
[2019-01-15] MEDS: Famotidine 20 MG TAB PO SCH ×2 (00:36→08:34)
[2019-01-15] MEDS: Apixaban 5 MG TAB PO SCH ×3 (00:36→20:33)
[2019-01-15] MEDS: Piperacillin/Tazobactam 2.25 GM in Sodium Chloride 0.9% 100 ML IVPB SCH ×5 (00:38→23:15)
[2019-01-15] MEDS ORDERED: Sodium Bicarbonate 100 MEQ in Dextrose 5% in Water 1,000 ML IV SCH (01:00)
[2019-01-15 01:03] LABS: Troponin I 0.099 ng/mL (< 0.028)
--- NOTE | 2019-01-15 03:17 | PRG ---
DATE OF SERVICE: 01/14/2019 SUBJECTIVE: Mr. Pérez apparently developed low blood pressure early this evening. I was not notified until about 20 minutes ago. He was transferred to the critical care unit. Previous blood pressure according to the computer was 67/53 at 21: 53. Previous heart rate was in the 90s. His blood pressure is 110 with a pressor going through a hand IV at this time. He is actually in no distress and looks no different from when I saw him earlier today. OBJECTIVE: LUNGS: Clear. HEART: Regular rhythm. ABDOMEN: Soft and protuberant. EXTREMITIES: Without asymmetry. LABORATORY DATA: Sodium 130, potassium 6.4, chloride 93, bicarb 19, BUN 49, creatinine 2.36. Intake and output are measured, positive 80 mL. ASSESSMENT AND PLAN: I suspect he is too dry for his ejection fraction ,and that is all this is. He has been in the negative fluid balance for last 24 hours, although there is no intake and output recorded before that. He has developed renal insufficiency and hyperkalemia from a lack of renal perfusion in my opinion. At an minimum, he needs a central line, preferably a groin line since he cannot lay flat for a very long period, and ias anticoagulated.. We may or may not put in a femoral arterial line. I have explained all the above to him including the risks of bleeding and infection. He agrees to proceed. He is anticoagulated, so we will not place subclavian line. His cardiac medications will need to be held. His diuretics definitely have to be held even though his lactate level is elevated, I doubt he is septic. CRITICAL CARE TIME: 40 minutes independent of the procedure. Job ID: [id number] [facility]
--- NOTE | 2019-01-15 03:17 | PRG ---
DATE OF SERVICE: 01/14/2019 Mr. Pérez continues to run a blood pressure 110 to 120. I elected not to place an A-line because I could not feel good pulse. I would hate to do something that might lead to femoral artery occlusion at this point when it is not 100% necessary to place an A-line. we are Titrating the Levophed off. He is receiving another saline bolus plus, I have given an amp of bicarb and I will give him D5W with 2 amps of bicarb in each L at 100 mL/hour. Hopefully this will lead to increase renal perfusion and return of more normal renal function. He has made very little urine since he was in the ICU. Earlier today, I asked the nurse to ultrasound his bladder, but I cannot find documentation whether he had urinary retention at that time or not. He was complaining of feeling like he needed to void, but unable to get out more than a few mL of urine. I met with the and his son. The probably will need to stay at the hospital since she does not drive unless the son can take her home, but they live over an hour away in [place]. I have explained to the son that the patient came close to coding earlier this evening and fortunately has not. We have a decent blood pressure now and central venous access. 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 He refused to wear a life vest. I discussed with the son and the the issues of sudden cardiac with cardiomyopathy and they appeared to have an understanding of this. Hopefully, we will see an improvement in his acid-base disorder and his potassium in 5 hours when we repeat lab on him. If not or his potassium continues to climb, he will probably need dialysis catheter and dialysis. Dialysis would be risky given his severe cardiomyopathy, but we will do what is necessary hopefully to get him down the road and hopefully he will survive this hospitalization. He is awake and alert , not complaining of anything, although he wants that his stay in the room with him and complains that he is thirsty. He will be allowed to drink ice and water for this evening. I would not recommend feeding him tonight. We discussed sleep apnea symptoms. His son says without a doubt he has sleep apnea, but also says there is no way he will wear anything over his face, even he would not wear an oxygen mask over his face according to the . I was contemplating what we might do should he develop some mild pulmonary edema with his rehydration, but they said there is no way he will wear a BiPAP. Hopefully, he would not require a mechanical ventilatory support with dialysis. At this point in time, he clearly does not need intubation, has no signs of respiratory distress or respiratory fatigue. I doubt he is septic. It is reasonable to start antimicrobial therapy, but with his renal issues right now, I do not feel we need to give him vancomycin. He really has not been in the hospital long enough to have a systemic staphylococcal infection in my opinion and his chest x-ray this evening shows no new infiltrates. I suspect he has just been over diuresed. We do not have active intake and output. I have no way of quantitating that. Critical care time, total this evening, independent of procedure performed was 95 minutes. Job ID: [id number] [facility]
[2019-01-15 04:30] VITALS: BMI 31.0
[2019-01-15 04:41] LABS: Anion Gap 22 mmol/L (10-20); BUN (Urea Nitrogen) 54 mg/dL (8.4-25.7); Calc. Creatinine Clearance 39 mL/min (70-130); Calcium 8.5 mg/dL (7.8-10.44); Carbon Dioxide 23 mmol/L (23-31); Chloride 92 mmol/L (98-107); Estimated GFR-MDRD 26; Glucose 187 mg/dL (80-115); Magnesium 2.4 mg/dL (1.6-2.6); Potassium 5.2 mmol/L (3.5-5.1); Sodium 132 mmol/L (136-145)
[2019-01-15 04:47] LABS: Troponin I 0.084 ng/mL (< 0.028)
[2019-01-15 05:07] LABS: Band 16 % (5-11); Hemoglobin 12.9 g/dL (14.0-18.0); Lymphocytes 6 % (21-51); MDiff Complete? YES; Mean Corpuscular HGB CONC 33.5 g/dL (32.0-36.0); Mean Corpuscular Hemoglobin 31.1 pg (27.0-31.0); Mean Corpuscular Volume 92.8 fL (78.0-98.0); Mean Platelet Volume 8.1 fL (7.4-10.4); Metamyelocyte 1 % (0-0); Monocytes 10 % (0-10); Neutrophil 67 % (42-75); Platelet Count 170 thou/uL (130-400); Platelet Morphology Comment Appears Adequate; RBC Distribution Width 12.5 % (11.5-14.5); Red Blood Cell (RBC) Count 4.15 mill/uL (4.70-6.10); White Blood Cell (WBC) Count 14.8 thou/uL (4.8-10.8)
[2019-01-15] MEDS ORDERED: Furosemide 40 MG TAB PO SCH (07:30)
[2019-01-15] MEDS ORDERED: Carvedilol 6.25 MG TAB PO SCH (08:00)
[2019-01-15] MEDS: Aspirin Chewable 81 MG TAB PO SCH (08:34)
[2019-01-15] MEDS: Digoxin 0.125 MG TAB PO SCH (08:34)
[2019-01-15] MEDS: methylPREDNISolone Sod Succ 40 MG VIAL IVP SCH (08:34)
[2019-01-15] MEDS ORDERED: methylPREDNISolone Sod Succ/PF 125 MG/2 ML VIAL IVP SCH (09:00)
[2019-01-15] MEDS ORDERED: Vancomycin HCl 750 GM in Sodium Chloride 0.9% 250 ML 250 ML IVPB SCH (09:00)
[2019-01-15] MEDS: Sodium Chloride 0.9% 1,000 ML IV SCH ×2 (10:28→20:33)
--- NOTE | 2019-01-15 10:37 | PRG ---
DATE OF SERVICE: 01/15/2019 SUBJECTIVE: A 68-year-old gentleman, who had a very eventful night, hypertensive, low urine output. This morning, he is better. He is on Levophed. His systolic blood pressure is 88 on Levophed. OBJECTIVE: VITAL SIGNS: Pulse 85, saturations 97% on 2 L, and respirations 19. abdominal discomfort. No shortness of breath, coughing, or chest pain. CHEST: Decreased breath sounds. No wheezing. CARDIAC: Normal S1 and S2. No gallops. ABDOMEN: No masses. LABORATORY STUDIES: Sodium is 132. His bicarb is 23, improved. BUN and creatinine 54 and 2.46, . His troponin is slightly elevated. Lactic acid was 5. IMPRESSION: 1. Hypotension, probably volume depleted. 2. Azotemia. 3. Hyponatremia, metabolic acidosis improved, probably secondary to renal failure. PLAN: Switch over to normal saline at 100 an hour. Slow hydration. Continue steroids. Continue broad-spectrum antibiotics. We will follow. Job ID: [id number]
--- NOTE | 2019-01-15 13:19 | PDOC.CTH ---
Cardiology Progress Note - Subjective Pt. seen and eval. sleeping comfortably. No complaints. - Objective Vital Signs Temp Pulse Resp Pulse Ox 01/15/19 12:00 96.9 F L 01/15/19 11:09 88 14 96 01/15/19 08:34 86 01/15/19 08:00 96 01/15/19 07:00 97.1 F L 01/15/19 06:43 99 01/15/19 06:40 88 16 99 01/15/19 03:11 93 L 01/15/19 03:00 96.8 F L 01/15/19 02:09 86 20 97 01/15/19 02:00 97.5 F L Weight 216 lb 11.43 oz 01/14/19 01/15/19 01/16/19 06:59 06:59 06:59 Intake Total 465 2373 922 Output Total 1050 702 540 Balance -585 1671 382 - Physical Examination Neck: carotid US brisk Lungs: CTA, unlabored respirations Heart: RRR Abdomen: NT/ND, soft - Telemetry Telemetry Rhythm: NSR. - Labs Result Diagrams: 01/15/19 04:00 01/15/19 04:00 Troponin/CKMB CK-MB (CK-2) 2.7 ng/mL (0-6.6) 01/11/19 04:19 Troponin I 0.084 ng/mL (< 0.028) H 01/15/19 04:00 - Assessment/Plan 1. Afib RVR. Converted to NSR. 2. Acute on chronic systolic heart failure. 3. Non ischemic dilatd CM EF 20-25% . Still on pressors to maintain BP. 4. COPD 5. Non compliance PLAN: -Rate controlled. Digoxin was added to regimen. - On PO lasix. - Continues to not be interested in an AICD. - Failed Cardioversion but now he converted back to NSR. He has very dilated right and left atria so unlikely to maintain sinus rhythm. Rate controlled for now. Switch to Eliquis and PO amio load and d/c home.
[2019-01-15] MEDS: Ondansetron PF 4 MG/2 ML Vial IVP PRN (18:46)
--- NOTE | 2019-01-15 20:24 | PRG ---
DATE OF SERVICE: 01/15/2019 SUBJECTIVE: A 68-year-old male with COPD, cardiomyopathy, chronic hypoxic respiratory failure, admitted on January 11, 2019, with shortness of breath. His workup was consistent with COPD and congestive heart failure exacerbation. Echocardiogram showed ejection fraction 20% to 25%. He developed atrial fibrillation with rapid ventricular response and was started on amiodarone drip. He underwent SELWYN cardioversion that failed. Last night, he became hypotensive requiring central line placement. He is currently on Levophed. He denies any chest pain or palpitations at this time. His shortness of breath has improved. No fever or chills reported. Telemetry monitoring by my review showed sinus rhythm. Weight of 216 pounds. Intake of 2373, output 702. Chest x-ray from last night by my review was negative for acute findings. CURRENT MEDICATIONS: Reviewed. The patient is on Levophed 5 mcg/hour along with IV fluids. Zosyn was started last night. PHYSICAL EXAMINATION: VITAL SIGNS: Temperature 96.9 with blood pressure of 91/64, pulse rate of 90, respirations of 16, O2 saturation 98% on 3 L nasal cannula. GENERAL: A 68-year-old male, in no apparent distress. Denies any chest discomfort. HEENT: Head, atraumatic and normocephalic. Sclerae anicteric. LUNGS: Diminished air entry at bilateral bases. No wheezing, rales, or rhonchi. HEART: S1, S2 present. Regular rate and rhythm. No rubs or gallops. ABDOMEN: Soft, nontender. Bowel sounds present. No rebound or guarding. EXTREMITIES: No cyanosis, clubbing, or edema. NEUROLOGIC: Grossly nonfocal. PSYCHIATRY: Normal affect. The patient is alert, awake, and oriented x3. LABORATORY FINDINGS: CBC showed WBC 14.8 with hemoglobin 12.9, hematocrit 38.5, platelet of 170. Chemistry showed sodium 132, potassium 5.2, chloride 92, bicarb 23, BUN 54, creatinine 2.46 from 2.36. Troponin this morning was 0.084. Lactic acid last night was 5.0. IMPRESSION: 1. Acute hypoxic respiratory failure secondary to chronic obstructive pulmonary disease/congestive heart failure exacerbation. 2. Hypotension requiring pressors, probably secondary to hypovolemia. 3. Acute on chronic systolic heart failure exacerbation, ACC stage C. The patient is declining AICD. 4. Atrial fibrillation with rapid ventricular response, spontaneously converted to sinus rhythm. The patient has been started on Eliquis. 5. Gross hematuria that started today, probably secondary to Garcia catheter. 6. Acute kidney injury on chronic kidney disease stage 2. 7. Lactic acidosis secondary to hypotension. 8. Type 2 myocardial infarction. 9. Chronic anemia. 10. Diabetes mellitus type 2. 11. Obesity with a BMI of 31. 12. History of hypertension. 13. Mild hyponatremia. 14. Abnormal LFTs secondary to passive hepatic congestion. PLAN: The patient will remain in CCU. We will continue Levophed. Continue amiodarone and digoxin for atrial fibrillation. Continue empiric antibiotics. We will check cortisol level in a.m. Continue IV hydration. Recheck chest x-ray in a.m. Repeat lactic acid in a.m. Continue GI prophylaxis. A.m. labs. Continue nebulizer treatment. Job ID: [id number]
[2019-01-16 05:03] LABS: Lactic Acid 1.5 mmol/L (0.5-2.2)
[2019-01-16] MEDS: Sodium Chloride 0.9% 1,000 ML IV SCH ×2 (05:07→16:10)
[2019-01-16] MEDS: Piperacillin/Tazobactam 2.25 GM in Sodium Chloride 0.9% 100 ML IVPB SCH ×3 (05:07→17:00)
[2019-01-16 05:10] LABS: Band 12 % (5-11); Hemoglobin 11.6 g/dL (14.0-18.0); Lymphocytes 6 % (21-51); MDiff Complete? YES; Mean Corpuscular HGB CONC 33.1 g/dL (32.0-36.0); Mean Corpuscular Hemoglobin 30.5 pg (27.0-31.0); Mean Platelet Volume 7.9 fL (7.4-10.4); Monocytes 6 % (0-10); Neutrophil 76 % (42-75); Platelet Count 153 thou/uL (130-400); RBC Distribution Width 12.2 % (11.5-14.5); Red Blood Cell (RBC) Count 3.79 mill/uL (4.70-6.10); White Blood Cell (WBC) Count 15.3 thou/uL (4.8-10.8)
[2019-01-16 05:11] LABS: Anion Gap 13 mmol/L (10-20); BUN (Urea Nitrogen) 50 mg/dL (8.4-25.7); Calc. Creatinine Clearance 60 mL/min (70-130); Calcium 7.6 mg/dL (7.8-10.44); Carbon Dioxide 28 mmol/L (23-31); Chloride 94 mmol/L (98-107); Estimated GFR-MDRD 42; Glucose 155 mg/dL (80-115); Magnesium 2.4 mg/dL (1.6-2.6); Potassium 4.4 mmol/L (3.5-5.1); Sodium 131 mmol/L (136-145)
[2019-01-16] MEDS: Apixaban 5 MG TAB PO SCH ×2 (08:02→21:26)
[2019-01-16] MEDS: guaiFENesin ER 600 MG TAB PO SCH ×2 (08:02→21:26)
[2019-01-16] MEDS: Aspirin Chewable 81 MG TAB PO SCH (08:02)
[2019-01-16] MEDS: methylPREDNISolone Sod Succ 40 MG VIAL IVP SCH (08:02)
[2019-01-16] MEDS: Digoxin 0.125 MG TAB PO SCH (08:02)
[2019-01-16] MEDS: Famotidine 20 MG TAB PO SCH (08:02)
--- NOTE | 2019-01-16 08:13 | RAD ---
EXAM: CHEST ONE VIEW HISTORY: On ventilator. Follow-up evaluation. COMPARISON: 01/14/2019 FINDINGS: Cardiac silhouette remains enlarged. There is mild pulmonary vascular congestion. There is mild atele ctasis present at each lung base. No consolidation or pleural fluid is seen. The osseous structures are intact. Vascular calcifications are seen in the thoracic aorta. IMPRESSION: Cardiomegaly and mild pulmonary vascular congestion suggesting mild CHF.
--- NOTE | 2019-01-16 11:23 | OP ---
DATE OF PROCEDURE: 01/14/2019 PROCEDURE: Central line placement. VC++ DEVELOPER: Inocente Rendon MD DESCRIPTION OF PROCEDURE: Right femoral area was prepped with chlorhexidine twice with two chlorhexidine prep pads. The femoral vein was cannulated easily first pass after 5 mL of 1% lidocaine was used to anesthetize the skin. K-wire was passed. A small incision was made with a #11 blade. Vein dilator was inserted and removed. Triple-lumen catheter was inserted and the wire was withdrawn. The catheter was sewn in place x2. Good blood return was obtained from all three ports. Sterile dressings being applied. Pressors will be connected to the femoral vein line. I believe with IV hydration, our requirements for pressors will go away, so I do not plan on placing a femoral arterial line at this time. Job ID: [id number]
[2019-01-16] MEDS: Carvedilol 3.125 MG TAB PO SCH (16:57)
--- NOTE | 2019-01-16 18:00 | PDOC.PN ---
- Subjective Encounter Start Date: 01/16/19 Encounter Start Time: 15:30 Patient seen and examined for Resp failure. Off Levophed. Feels Gen weak. No other complaints. No overnight events - Objective Resuscitation Status - Order Detail: 01/11/19 09:38 Resuscitation Status Routine Resuscitation Status: FULL: Full Resuscitation MAR Reviewed: Yes Vital Signs & Weight: Vital Signs (12 hours) Temp Pulse Resp Pulse Ox 01/16/19 14:54 94 13 97 01/16/19 11:47 92 12 93 L 01/16/19 08:02 94 01/16/19 08:00 90 L 01/16/19 07:00 97.6 F 01/16/19 06:45 86 L 01/16/19 06:43 90 14 86 L Weight Weight 221 lb 3 oz Most Recent Monitor Data Heart Rate from ECG 96 NIBP 102/70 NIBP BP-Mean 80 Respiration from ECG 18 SpO2 97 I&O: 01/15/19 01/16/19 01/17/19 06:59 06:59 06:59 Intake Total 2371 8359 825 Output Total 702 1995 685 Balance 1671 1784 140 Result Diagrams: 01/16/19 04:30 01/16/19 04:30 Radiology Reviewed by me: Yes (CXR - Cardiomegaly) EKG Reviewed by me: Yes (Tele SR) Phys Exam - Physical Examination Constitutional: NAD Respiratory: no wheezing Scat rhonchi at bases with few bibasilar rales Cardiovascular: RRR, no rub Gastrointestinal: soft, non-tender, positive bowel sounds Musculoskeletal: no edema Neurological: moves all 4 limbs Dx/Plan - Plan IMPRESSION: 1. Acute hypoxic respiratory failure secondary to chronic obstructive pulmonary disease/congestive heart failure exacerbation. 2. Hypotension requiring pressors, probably secondary to hypovolemia. 3. Acute on chronic systolic heart failure exacerbation, ACC stage C. - declining AICD. 4. Atrial fibrillation with rapid ventricular response, spontaneously converted to SR - on Eliquis. Failed Cardioversion 5. Gross hematuria secondary to Garcia catheter - improving. Garcia dced 01/16 6. Acute kidney injury on chronic kidney disease stage 2. improving 7. Lactic acidosis secondary to hypotension. 8. Type 2 myocardial infarction. 9. Chronic anemia. 10. Diabetes mellitus type 2. 11. Obesity with a BMI of 31. 12. History of hypertension. 13. Mild hyponatremia. 14. Abnormal LFTs secondary to passive hepatic congestion. PLAN: Off Pressors AM labs Cont Amiodarone/Digoxin with anticoag On Zosyn and Steroids Cont other meds as below AM labs Review of Systems - Review of Systems Respiratory: SOB with Excertion. negative: Cough, Dry, Shortness of Breath, Hemoptysis, Pleuritic Pain, Sputum, Wheezing Cardiovascular: negative: chest pain, palpitations, orthopnea, paroxysmal nocturnal dyspnea, edema, light headedness, other - Medications/Allergies Allergies/Adverse Reactions: Allergies Allergy/AdvReac Type Severity Reaction Status Date / Time No Known Drug Allergies Allergy Verified 12/08/17 21:43 Medications: Current Medications Acetaminophen (Tylenol) 650 mg PO Q4H PRN PRN Reason: Headache/Fever/Mild Pain (1-3) Albuterol/Ipratropium (Duoneb) 3 ml NEB Q4H PRN PRN Reason: SOB &/or Wheezing Albuterol/Ipratropium (Duoneb) 3 ml NEB [id number] [facility] Last Admin: 01/16/19 14:54 Dose: 3 ml Apixaban (Eliquis) 5 mg PO BID [facility] Last Admin: 01/16/19 08:02 Dose: 5 mg Aspirin (Aspirin Chewable) 81 mg PO DAILY [facility] Last Admin: 01/16/19 08:02 Dose: 81 mg Atorvastatin Calcium (Lipitor) 40 mg PO HS [facility] Last Admin: 01/15/19 20:32 Dose: 40 mg Carvedilol (Coreg) 3.125 mg PO BID-[facility] Last Admin: 01/16/19 16:57 Dose: 3.125 mg Digoxin (Lanoxin) 0.125 mg PO DAILY [facility] Last Admin: 01/16/19 08:02 Dose: 0.125 mg Famotidine (Pepcid) 20 mg PO DAILY [facility] Last Admin: 01/16/19 08:02 Dose: 20 mg Guaifenesin (Mucinex) 600 mg PO Q12HR [facility] Last Admin: 01/16/19 08:02 Dose: 600 mg Amiodarone HCl 450 mg/ (Dextrose/Water) 259 mls @ 0 mls/hr IVPB INF [facility]; Protocol Last Admin: 01/14/19 03:34 Dose: 259 mls Norepinephrine Bitartrate 8 mg (/ Dextrose/Water) 250 mls @ 0 mls/hr IVPB INF PRN; Protocol PRN Reason: TO MAINTAIN MAP > 65 Last Admin: 01/15/19 11:43 Dose: 250 mls Piperacillin Sod/Tazobactam (Sod 2.25 gm/ Sodium Chloride) 100 mls @ 200 mls/ hr IVPB Q6HR [facility] Last Admin: 01/16/19 17:00 Dose: 100 mls Sodium Chloride (Normal Saline 0.9%) 1,000 mls @ 100 mls/hr IV .Q10H [facility] Last Admin: 01/16/19 16:10 Dose: Not Given Melatonin (Melatonin) 3 mg PO HS PRN PRN Reason: Insomnia Last Admin: 01/14/19 16:59 Dose: 3 mg Methylprednisolone Sodium Succinate (Solu-Medrol) 20 mg IVP DAILY [facility] Last Admin: 01/16/19 08:02 Dose: 20 mg Nitroglycerin (Nitrostat) 0.4 mg PO Q5MIN PRN PRN Reason: Chest Pain Ondansetron HCl (Zofran Odt) 4 mg PO Q6H PRN PRN Reason: Nausea/Vomiting Ondansetron HCl (Zofran) 4 mg IVP Q6H PRN PRN Reason: Nausea/Vomiting Last Admin: 01/15/19 18:46 Dose: 4 mg Phenol (Chloraseptic [place] 180 Ml Bot) 0 ml PO BIDPRN PRN PRN Reason: Sore Throat Last Admin: 01/12/19 09:00 Dose: 2 spray Senna/Docusate Sodium (Senokot S) 2 tab PO BID PRN PRN Reason: Constipation Sodium Chloride (Flush - Normal Saline) 10 ml IVF Q12HR [facility] Last Admin: 01/16/19 10:19 Dose: 10 ml Sodium Chloride (Flush - Normal Saline) 10 ml IVF PRN PRN PRN Reason: Saline Flush Last Admin: 01/12/19 00:19 Dose: 10 ml Spironolactone (Aldactone) 25 mg PO QAM-WM [facility] Sterile Water (Bacteriostatic Water) 1 ml FS PRN PRN PRN Reason: RECONSTITUTION Tamsulosin HCl (Flomax) 0.4 mg PO HS [facility] Last Admin: 01/15/19 20:32 Dose: 0.4 mg
[2019-01-16] MEDS ORDERED: Sodium Chloride 0.9% 1,000 ML IV SCH (20:17)
--- NOTE | 2019-01-16 20:52 | PRG ---
DATE OF SERVICE: 01/16/2019 SUBJECTIVE: Mr. Pérez has no new complaints. OBJECTIVE: VITAL SIGNS: Heart rate is in 80s, respiratory rates in teens, oximetry is 94% on a cannula, and blood pressure is 117/81. Intake and output, positive 1784. LUNGS: Clear. HEART: Regular rhythm. S1 and S2 are normal. ABDOMEN: Soft and nontender. EXTREMITIES: Without asymmetry or edema. IMPRESSION: 1. Transient hypotension with renal failure secondary to inadvertent over-diuresis. 2. Severe underlying cardiomyopathy with instructions not to drive because of his risk of sudden cardiac . He said he was switching to Dr. 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 He has been noncompliant in the past only the future will show whether or not he is compliant. I suspect his is fairly determined to push for this, but remains to be seen. PLAN: We will continue with nebulizer treatments. His IV fluids probably can be cut back at this point given that his renal function is stabilized. We probably move him out of the Critical Care in 12 to 24 hours. Job ID: [id number]
[2019-01-16] MEDS: Tamsulosin HCl 0.4 MG CAP PO SCH (21:26)
[2019-01-16] MEDS: Atorvastatin Calcium 40 MG TAB PO SCH (21:26)
[2019-01-17] MEDS: Piperacillin/Tazobactam 2.25 GM in Sodium Chloride 0.9% 100 ML IVPB SCH ×4 (02:38→17:39)
[2019-01-17 06:59] LABS: Anion Gap 11 mmol/L (10-20); BUN (Urea Nitrogen) 37 mg/dL (8.4-25.7); Calc. Creatinine Clearance 89 mL/min (70-130); Calcium 7.8 mg/dL (7.8-10.44); Carbon Dioxide 30 mmol/L (23-31); Chloride 98 mmol/L (98-107); Estimated GFR-MDRD 64; Glucose 139 mg/dL (80-115); Potassium 4.8 mmol/L (3.5-5.1); Sodium 134 mmol/L (136-145)
[2019-01-17 07:42] LABS: Band 2 % (5-11); Hemoglobin 12.1 g/dL (14.0-18.0); Lymphocytes 13 % (21-51); MDiff Complete? YES; Mean Corpuscular HGB CONC 32.9 g/dL (32.0-36.0); Mean Corpuscular Hemoglobin 30.6 pg (27.0-31.0); Mean Platelet Volume 7.8 fL (7.4-10.4); Metamyelocyte 1 % (0-0); Monocytes 3 % (0-10); Neutrophil 81 % (42-75); Platelet Count 165 thou/uL (130-400); RBC Distribution Width 12.2 % (11.5-14.5); Red Blood Cell (RBC) Count 3.97 mill/uL (4.70-6.10); White Blood Cell (WBC) Count 16.6 thou/uL (4.8-10.8)
--- NOTE | 2019-01-17 08:33 | RAD ---
RADIOGRAPH CHEST 1 VIEW: DATE: 01/17/2019 TIME: 5:37 AM HISTORY: 68-year-old male with dyspnea "ventilation." COMPARISON: 01/16/2019 5:06 AM FINDINGS: Increased transverse diameter of the cardiac shadow similar to prior study. At least some of this is due to magnification. Prominent interstitial markings diffusely, especially at right lung base. No consolidation. No high-grade effacement of lateral costophrenic angles. No pneumothorax. Calcificatio n and tortuosity of thoracic aorta. No interval change significantly. There are no life-support lines and no endotracheal tube despite the provided history. IMPRESSION: 1. No significant interval change. 2. Borderline or mild cardiomegaly and perhaps mild pulmonary venous congestion. 3. Prominent interstitial markings.
[2019-01-17] MEDS: Aspirin Chewable 81 MG TAB PO SCH (09:34)
[2019-01-17] MEDS: Apixaban 5 MG TAB PO SCH ×2 (09:34→21:17)
[2019-01-17] MEDS: Carvedilol 3.125 MG TAB PO SCH ×2 (09:34→17:39)
[2019-01-17] MEDS: Spironolactone 25 MG TAB PO SCH (09:34)
[2019-01-17] MEDS: Digoxin 0.125 MG TAB PO SCH (09:35)
[2019-01-17] MEDS: guaiFENesin ER 600 MG TAB PO SCH ×2 (09:35→21:16)
[2019-01-17] MEDS: methylPREDNISolone Sod Succ 40 MG VIAL IVP SCH (09:35)
[2019-01-17] MEDS: Famotidine 20 MG TAB PO SCH (09:35)
[2019-01-17] MEDS: Sacubitril 24.5 MG/Valsartan 25.5 MG TABLET PO SCH ×2 (10:28→21:30)
--- NOTE | 2019-01-17 15:17 | PRG ---
DATE OF SERVICE: 01/17/2019 SUBJECTIVE: Shakir Pérez is doing well. He has no complaints. OBJECTIVE: VITAL SIGNS: He is afebrile. Heart rate in the 70s, respiratory rate 18, oximetry is 92-93 on cannula, blood pressure 107/66. LUNGS: Clear. HEART: Regular rhythm. S1 and S2 are normal. ABDOMEN: Soft and nontender. EXTREMITIES: Without clubbing, cyanosis, or edema. IMAGING: Chest x-ray compared to yesterday's films, unchanged. IMPRESSION: 1. Congestive heart failure. 2. Chronic obstructive pulmonary disease exacerbation. 3. Transient hypotension in renal failure secondary to diuresis. Intake and output positive 415. We probably need to Hep-Lock his IV fluids and increase his activity. He will probably end up needing oxygen at the house. He went out brought a giant tank. He says that he probably would qualify for regular vapor concentrator. Job ID: [id number]
--- NOTE | 2019-01-17 16:29 | PDOC.PN ---
- Subjective Encounter Start Date: 01/17/19 Encounter Start Time: 16:27 Mr. Pérez and I remember each other from a prior admission in the Spring. He is feeling better. Happy to have the catheter out. 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 - Objective Resuscitation Status - Order Detail: 01/11/19 09:38 Resuscitation Status Routine Resuscitation Status: FULL: Full Resuscitation Vital Signs & Weight: Vital Signs (12 hours) Temp Pulse Pulse Resp BP BP BP 01/17/19 15:29 72 13 01/17/19 15:19 97.8 F 73 18 108/56 L 01/17/19 11:58 97.5 F L 73 18 107/66 01/17/19 11:52 71 107/66 113/59 L 01/17/19 10:54 79 16 01/17/19 08:06 97.4 F L 79 18 106/64 01/17/19 07:18 83 16 Pulse Ox Pulse Ox Pulse Ox Pulse Ox 01/17/19 15:29 01/17/19 15:19 93 L 01/17/19 11:58 93 L 01/17/19 11:52 93 L 85 L 91 L 01/17/19 10:54 01/17/19 08:06 92 L 01/17/19 07:18 Weight Weight 227 lb Most Recent Monitor Data Heart Rate from ECG 86 NIBP 117/81 NIBP BP-Mean 93 Respiration from ECG 18 SpO2 93 I&O: 01/16/19 01/17/19 01/18/19 06:59 06:59 06:59 Intake Total 3779 1765 Output Total 1994 1350 Balance 1784 415 Result Diagrams: 01/17/19 06:14 01/17/19 06:14 Phys Exam - Physical Examination Constitutional: NAD Diminished breath sounds. Scattered rales. Cardiovascular: RRR, no significant murmur Gastrointestinal: soft, non-tender, no distention, positive bowel sounds Musculoskeletal: no edema Neurological: non-focal Psychiatric: normal affect, A&O x 3 Skin: normal turgor Dx/Plan (1) Acute respiratory failure with hypoxia Code(s): J96.01 - ACUTE RESPIRATORY FAILURE WITH HYPOXIA Status: Acute (2) Systolic CHF, acute on chronic Code(s): I50.23 - ACUTE ON CHRONIC SYSTOLIC (CONGESTIVE) HEART FAILURE Status : Acute (3) Dilated cardiomyopathy Code(s): I42.0 - DILATED CARDIOMYOPATHY Status: Acute (4) Afib Code(s): I48.91 - UNSPECIFIED ATRIAL FIBRILLATION Status: Acute (5) CKD (chronic kidney disease) stage 3, GFR 30-59 ml/min Code(s): N18.3 - CHRONIC KIDNEY DISEASE, STAGE 3 (MODERATE) Status: Chronic (6) COPD (chronic obstructive pulmonary disease) Status: Chronic (7) Hypotension Status: Acute (8) Hematuria Code(s): R31.9 - HEMATURIA, UNSPECIFIED Status: Acute (9) Anemia Code(s): D64.9 - ANEMIA, UNSPECIFIED Status: Acute (10) HTN (hypertension) Code(s): I10 - ESSENTIAL (PRIMARY) HYPERTENSION Status: Acute (11) Chronic passive congestion of liver Code(s): K76.1 - CHRONIC PASSIVE CONGESTION OF LIVER Status: Acute - Plan * Had afib with RVR. Did not respond to meds and failed to sustain after cardioversion. Has dilated left atrium and RV so high risk for recurrent afib. * Has CHF with dilated cardiomyopathy. 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 * Hypotension possibly due to iatrogenic hypovolemia has improved. Was on pressors, now off and maintaining. * COPD is stable. Will stop iv steroids and change to po. Continue bronchodilators. * Increase ambulation.
[2019-01-17] MEDS: Tamsulosin HCl 0.4 MG CAP PO SCH (21:17)
[2019-01-17] MEDS: Atorvastatin Calcium 40 MG TAB PO SCH (21:17)
--- NOTE | 2019-01-17 23:43 | EKG ---
Test Reason : Blood Pressure : / mmHG Vent. Rate : 112 BPM Atrial Rate : 112 BPM P-R Int : 000 ms QRS Dur : 098 ms QT Int : 352 ms P-R-T Axes : 000 041 107 degrees QTc Int : 480 ms Atrial fibrillation with rapid ventricular response with premature ventricular or aberrantly conducte d complexes Cannot rule out Anterior infarct , age undetermined Abnormal ECG Confirmed by JUN HOPPER ([id number]), research editor RD AUGUSTINE ([id number]) on 01/17/2019 11:42:39 PM Referred By: Confirmed By:JUN HOPPER
[2019-01-18] MEDS: Piperacillin/Tazobactam 2.25 GM in Sodium Chloride 0.9% 100 ML IVPB SCH ×5 (00:15→23:42)
--- NOTE | 2019-01-18 00:41 | EKG ---
Test Reason : Blood Pressure : / mmHG Vent. Rate : 117 BPM Atrial Rate : 133 BPM P-R Int : 000 ms QRS Dur : 102 ms QT Int : 324 ms P-R-T Axes : 000 031 119 degrees QTc Int : 451 ms Atrial fibrillation with rapid ventricular response with premature ventricular or aberrantly conducte d complexes Confirmed by JUN HOPPER ([id number]), assignment desk editor RD AUUGSTINE ([id number]) on 01/18/2019 12:40:41 AM Referred By: Confirmed By:JUN HOPPER
[2019-01-18 06:42] LABS: Anion Gap 8 mmol/L (10-20); BUN (Urea Nitrogen) 34 mg/dL (8.4-25.7); Calc. Creatinine Clearance 95 mL/min (70-130); Calcium 7.5 mg/dL (7.8-10.44); Carbon Dioxide 31 mmol/L (23-31); Chloride 99 mmol/L (98-107); Estimated GFR-MDRD 68; Glucose 189 mg/dL (80-115); Potassium 4.8 mmol/L (3.5-5.1); Sodium 133 mmol/L (136-145)
[2019-01-18 08:32] LABS: Band 3 % (5-11); Lymphocytes 16 % (21-51); MDiff Complete? YES; Mean Corpuscular HGB CONC 33.2 g/dL (32.0-36.0); Mean Corpuscular Hemoglobin 30.9 pg (27.0-31.0); Mean Corpuscular Volume 93.1 fL (78.0-98.0); Mean Platelet Volume 7.4 fL (7.4-10.4); Monocytes 3 % (0-10); Neutrophil 78 % (42-75); Platelet Count 196 thou/uL (130-400); RBC Distribution Width 12.4 % (11.5-14.5); White Blood Cell (WBC) Count 17.9 thou/uL (4.8-10.8)
--- NOTE | 2019-01-18 09:07 | RAD ---
XR Chest 1 View Portable History: Ventilated patient Comparison: Radiograph prior day Findings: Heart size is enlarged. Pulmonary arteries are dilated. Mild pulmonary venous congestion. N o pneumothorax. Atelectasis in both lung lower lobes. Impression: No significant interval change in the radiographic appearance of the chest.
[2019-01-18] MEDS: guaiFENesin ER 600 MG TAB PO SCH ×2 (09:12→20:47)
[2019-01-18] MEDS: Famotidine 20 MG TAB PO SCH (09:12)
[2019-01-18] MEDS: predniSONE 20 MG TAB PO SCH (09:13)
[2019-01-18] MEDS: Aspirin Chewable 81 MG TAB PO SCH (09:13)
[2019-01-18] MEDS: Apixaban 5 MG TAB PO SCH ×2 (09:13→20:46)
[2019-01-18] MEDS: Spironolactone 25 MG TAB PO SCH (09:17)
[2019-01-18] MEDS: Digoxin 0.125 MG TAB PO SCH (09:18)
[2019-01-18] MEDS: Sacubitril 24.5 MG/Valsartan 25.5 MG TABLET PO SCH (10:53)
[2019-01-18] MEDS: Carvedilol 3.125 MG TAB PO SCH ×2 (12:39→22:17)
--- NOTE | 2019-01-18 14:07 | PRG ---
DATE OF SERVICE: SUBJECTIVE: Shakir Pérez says he is feeling great. He is ambulating a little bit and actually got out in the henry. Intake and outputs +185 mL recorded. He only had 690 mL out over 24 hours, which does not seem like that would be accurate. OBJECTIVE: LUNGS: Clear. HEART: Regular rhythm. ABDOMEN: Soft. IMPRESSION: 1. Chronic hypoxemic respiratory failure with hypoxia. 2. He says he has an oxygen concentrator at home. 3. Chronic obstructive pulmonary disease, severe. 4. Congestive heart failure. 5. Medical noncompliance. 6. Status post emergent transfer to the ICU for hypotension brought on by diuresis with coexisting acute renal failure, which is resolved. 7. Creatinine is down to 1.08. 8. We will continue to follow. He may be a candidate for discharge for close outpatient followup tomorrow. Job ID: [id number]
--- NOTE | 2019-01-18 16:17 | PDOC.PN ---
- Subjective Encounter Start Date: 01/18/19 Encounter Start Time: 15:00 Doing ok. Still has some questions about meds. Feeling well. Has been getting up and around. - Objective Resuscitation Status - Order Detail: 01/11/19 09:38 Resuscitation Status Routine Resuscitation Status: FULL: Full Resuscitation Vital Signs & Weight: Vital Signs (12 hours) Temp Pulse Pulse Pulse Resp BP BP 01/18/19 15:28 97.8 F 73 18 01/18/19 14:54 72 16 01/18/19 14:50 75 89 92/50 L 102/62 01/18/19 11:40 97.9 F 72 18 01/18/19 11:30 85 16 01/18/19 10:53 77 18 01/18/19 10:22 85 18 01/18/19 09:18 75 01/18/19 07:22 97.4 F L 73 20 01/18/19 07:10 74 12 01/18/19 06:40 BP BP Pulse Ox Pulse Ox 01/18/19 15:28 97/55 L 93 L 01/18/19 14:54 01/18/19 14:50 92 L 01/18/19 11:40 108/63 98 01/18/19 11:30 01/18/19 10:53 121/65 01/18/19 10:22 92/54 L 01/18/19 09:18 01/18/19 07:22 106/62 94 L 01/18/19 07:10 92 L 01/18/19 06:40 94/53 L Weight Weight 228 lb 8 oz Most Recent Monitor Data Heart Rate from ECG 86 NIBP 117/81 NIBP BP-Mean 93 Respiration from ECG 18 SpO2 93 I&O: 01/17/19 01/18/19 01/19/19 06:59 06:59 06:59 Intake Total 1765 875 Output Total 1350 690 Balance 415 185 Result Diagrams: 01/18/19 06:04 01/18/19 06:04 Phys Exam - Physical Examination Constitutional: NAD Respiratory: no wheezing, no rales, no rhonchi Cardiovascular: RRR, no significant murmur, no rub Gastrointestinal: soft, non-tender, no distention, positive bowel sounds Musculoskeletal: no edema Psychiatric: normal affect, A&O x 3 Skin: normal turgor Dx/Plan (1) Acute respiratory failure with hypoxia Code(s): J96.01 - ACUTE RESPIRATORY FAILURE WITH HYPOXIA Status: Acute (2) Systolic CHF, acute on chronic Code(s): I50.23 - ACUTE ON CHRONIC SYSTOLIC (CONGESTIVE) HEART FAILURE Status : Acute (3) Dilated cardiomyopathy Code(s): I42.0 - DILATED CARDIOMYOPATHY Status: Acute (4) Afib Code(s): I48.91 - UNSPECIFIED ATRIAL FIBRILLATION Status: Acute (5) CKD (chronic kidney disease) stage 3, GFR 30-59 ml/min Code(s): N18.3 - CHRONIC KIDNEY DISEASE, STAGE 3 (MODERATE) Status: Chronic (6) COPD (chronic obstructive pulmonary disease) Status: Chronic (7) Hypotension Status: Acute (8) Hematuria Code(s): R31.9 - HEMATURIA, UNSPECIFIED Status: Acute (9) Anemia Code(s): D64.9 - ANEMIA, UNSPECIFIED Status: Acute (10) HTN (hypertension) Code(s): I10 - ESSENTIAL (PRIMARY) HYPERTENSION Status: Acute (11) Chronic passive congestion of liver Code(s): K76.1 - CHRONIC PASSIVE CONGESTION OF LIVER Status: Acute - Plan * Doing well overall. * SBP is low and preventing us from titrating up the CHF meds. * Explained the rationale for the meds. * Encouraged ambulation. * Can likely discharge tomorrow, but will need to determine what to do with the diuretics.
[2019-01-18] MEDS ORDERED: Sacubitril 24.5 MG/Valsartan 25.5 MG TABLET PO SCH (17:00)
[2019-01-18] MEDS: Tamsulosin HCl 0.4 MG CAP PO SCH (20:47)
[2019-01-18] MEDS: Melatonin 3 MG TAB PO PRN (20:52)
[2019-01-18] MEDS ORDERED: Atorvastatin Calcium 20 MG TAB PO SCH (21:00)
[2019-01-18] MEDS ORDERED: Sodium Chloride 0.9% 250 ML IV SCH (22:45)
[2019-01-19] MEDS: Piperacillin/Tazobactam 2.25 GM in Sodium Chloride 0.9% 100 ML IVPB SCH (05:37)
[2019-01-19 06:11] LABS: Band 4 % (5-11); Hemoglobin 13.2 g/dL (14.0-18.0); Lymphocytes 3 % (21-51); MDiff Complete? YES; Mean Corpuscular HGB CONC 32.6 g/dL (32.0-36.0); Mean Corpuscular Hemoglobin 30.5 pg (27.0-31.0); Mean Corpuscular Volume 93.4 fL (78.0-98.0); Mean Platelet Volume 7.4 fL (7.4-10.4); Monocytes 13 % (0-10); Neutrophil 80 % (42-75); Platelet Count 205 thou/uL (130-400); RBC Distribution Width 12.4 % (11.5-14.5); Red Blood Cell (RBC) Count 4.32 mill/uL (4.70-6.10); White Blood Cell (WBC) Count 18.1 thou/uL (4.8-10.8)
[2019-01-19 06:18] LABS: Anion Gap 11 mmol/L (10-20); BUN (Urea Nitrogen) 33 mg/dL (8.4-25.7); Calc. Creatinine Clearance 93 mL/min (70-130); Calcium 7.3 mg/dL (7.8-10.44); Carbon Dioxide 26 mmol/L (23-31); Chloride 101 mmol/L (98-107); Estimated GFR-MDRD 65; Glucose 182 mg/dL (80-115); Potassium 4.7 mmol/L (3.5-5.1); Sodium 133 mmol/L (136-145)
--- NOTE | 2019-01-19 08:50 | RAD ---
PORTABLE CHEST: DATE: 01/19/2019. PROVIDED CLINICAL HISTORY: Respiratory insufficiency. FINDINGS: Comparison 01/18/2019. Cardiac and mediastinal silhouette is unchanged in appearance. Vascular calcification involves the a ortic arch. Pulmonary vascular congestion is redemonstrated. No focal consolidation, pleural fluid, or pneumothorax apparent. IMPRESSION: Stable radiographic appearance of the chest. POS: OFF
[2019-01-19] MEDS: Aspirin Chewable 81 MG TAB PO SCH (09:25)
[2019-01-19] MEDS: predniSONE 20 MG TAB PO SCH (09:25)
[2019-01-19] MEDS: Famotidine 20 MG TAB PO SCH (09:25)
[2019-01-19] MEDS: Digoxin 0.125 MG TAB PO SCH (09:26)
[2019-01-19] MEDS: Apixaban 5 MG TAB PO SCH (09:26)
[2019-01-19] MEDS: guaiFENesin ER 600 MG TAB PO SCH (09:26)
[2019-01-19] MEDS: Spironolactone 25 MG TAB PO SCH (09:33)
--- NOTE | 2019-01-19 10:19 | PRG ---
DATE OF SERVICE: 01/19/2019 SUBJECTIVE: Mr. Pérez says he is ready to go home. He has oxygen nebulizer and nebulizer medicine at home. OBJECTIVE: VITAL SIGNS: He is afebrile. Heart rate is in 70s, respiratory rate 17, oximetry is 98% on 3 L cannula, and blood pressure 104/63. LUNGS: Distant and clear. HEART: Regular rhythm. S1 and S2 are normal. ABDOMEN: Soft and nontender. EXTREMITIES: Without edema or asymmetry. NEUROLOGIC: Nonfocal. LABORATORY DATA: White count 18.1, hemoglobin 13.2, and platelets are 205. Creatinine is down to 1.12. Potassium is normal at 4.7. IMPRESSION: 1. Systolic cardiomyopathy. 2. History of noncompliance with wearing a LifeVest. 3. Chronic obstructive pulmonary disease with noncompliance. 4. Acute renal failure and hypotension associated with over-diuresis. He is not on furosemide, so we will need to have this restarted at discharge. I do not feel that he needs any more antimicrobial therapy given he has had multiple days of Zosyn. I do not think it would be unreasonable to discharge him today, only his prednisone therapy for over a week to 10 days. He should follow up with me in a month. The importance of medical compliance was emphasized again. Job ID: [id number]
[2019-01-19] MEDS: Carvedilol 3.125 MG TAB PO SCH (12:09)
[2019-01-19 16:32] VITALS: BP 104/68; TEMP 97.9
--- NOTE | 2019-01-20 04:53 | DIS ---
DATE OF ADMISSION: 01/11/2019 DATE OF DISCHARGE: 01/19/2019 DISCHARGE DIAGNOSES: 1. Acute hypoxic respiratory failure, multifactorial, improved. 2. Acute on chronic systolic congestive heart failure with ejection fraction of 20% to 25%. 3. Nonischemic dilated cardiomyopathy with ejection fraction of 20% to 25%. 4. Chronic obstructive pulmonary disease with exacerbation, improved. 5. Atrial fibrillation with rapid ventricular response, converting to sinus mechanism on anticoagulation with Eliquis. 6. Medication noncompliance. 7. Acute kidney injury on chronic kidney disease stage 2. CONSULTATIONS: 1. Dr. Carrillo and Dr. Lo with Cardiology Service. 2. Dr. Rendon with Pulmonology Critical Care Service. PERTINENT LABORATORY AND X-RAY FINDINGS: Sodium ranged between 130 to 134, creatinine ranged between 1.08 to 2.46. Estimated GFR ranged between 26 to 68. Lactic acid level ranged between 1.5 to 5.0. Troponin I ranged between 0.080 to 0.136. BNP is 1518. TSH 0.265. CBC showed a hemoglobin ranging between 11.6 to 13.6. Sputum culture dated 01/11/2019, showed normal respiratory nae. Portable chest x-ray dated 01/11/2019, showed cardiomegaly without infiltrates. 2D transthoracic echocardiogram dated 01/11/2019, showed ejection fraction of 20% to 25%. Atrial fibrillation noted. Moderate biatrial enlargement. Right ventricular systolic pressure 25 mmHg. HOSPITAL COURSE: The patient was initially admitted after presenting with shortness of breath in the context of known chronic obstructive pulmonary disease and nonischemic cardiomyopathy with ejection fraction of 25% to 30%. The patient was initially evaluated for acute hypoxic respiratory failure, likely due to underlying chronic obstructive pulmonary disease exacerbation. The patient was placed on IV Solu-Medrol and given bronchodilator therapy as well as oxygen support. The patient also continued on initial IV Levaquin for suspected COPD exacerbation and monitored by the Pulmonology Service during the hospital course. The patient's presentation also complicated by atrial fibrillation with rapid ventricular response necessitating Cardiology evaluation. The patient was treated with IV Lasix due to concern for congestive heart failure exacerbation in the context of known nonischemic cardiomyopathy and depressed ejection fraction of 25%. The patient was offered AICD placement due to the depressed ejection fraction, however, declined to pursue this intervention as this would interfere with his current employment and occupation. The patient was also treated for atrial fibrillation with rapid ventricular response, converting to a sinus mechanism. The patient was placed on Eliquis as well as digoxin for rate control and anticoagulation. The patient's overall renal function improved with supportive management and modification to his current diuretic therapy. The patient was also initiated on Entresto due to depressed ejection fraction. The patient was able to tolerate cardiac and pulmonary therapy and stabilized to baseline levels prior to discharge. I have examined the patient at the time of discharge and discussed followup instructions. The patient verbalized understanding and agreement ready for discharge on 01/19/2019. DISCHARGE MEDICATIONS: 1. Eliquis 5 mg p.o. b.i.d. 2. Digoxin 0.125 mg p.o. daily. 3. Prednisone 20 mg p.o. daily x5 days followed by 10 mg p.o. daily x5 days. 4. Entresto 24/26 mg 1 tablet p.o. b.i.d. 5. Spironolactone 25 mg p.o. daily. 6. Dextroamphetamine/amphetamine 5 mg p.o. daily. 7. Flomax 0.4 mg p.o. at bedtime. 8. Enteric-coated aspirin 81 mg p.o. daily. 9. Lipitor 40 mg p.o. at bedtime. 10. Coreg 3.125 mg p.o. b.i.d. 11. Lasix 40 mg p.o. daily. 12. Dulera one puff inhaled b.i.d. FOLLOWUP: The patient may follow up with his primary care provider, Dr. Moody Whipple on 01/22/2019, at 11:15 am. The patient will follow up with Dr. Edwige Perez on 02/03/2019, at 8:00 am. CONDITION ON DISCHARGE: Fair. ACTIVITY: Ad-misha. DIET: Heart healthy. CODE STATUS: Full. DISPOSITION: Home, 01/19/2019. TIME SPENT: Total time preparing and coordinating discharge, 35 minutes. Job ID: [id number]
== END 2019-01-19 16:43 | disposition home or self-care (01) | DRG 280 ==
LOC: ERS 03:56 → ERHOLD 07:45 → 2NO 13:41 → CCU 01-14 21:27 → 2NO 01-16 20:50
PROVIDERS: ADMIT Internal Medicine Nephrology; ATTEND Internal Medicine Nephrology
PROC: 5A2204Z Restoration of Cardiac Rhythm, Single (ICD-10-PCS; principal; 2019-01-13)
PROC: 02HV33Z Insertion of Infusion Device into Superior Vena Cava, Percutaneous Approach (ICD-10-PCS; 2019-01-14)
DX: I13.0 Hypertensive heart and chronic kidney disease with heart failure and stage 1 through stage 4 chronic kidney disease, or unspecified chronic kidney disease (principal); I50.23 Acute on chronic systolic (congestive) heart failure; I21.A1 Myocardial infarction type 2; J96.21 Acute and chronic respiratory failure with hypoxia; J44.1 Chronic obstructive pulmonary disease with (acute) exacerbation; N17.9 Acute kidney failure, unspecified; E87.1 Hypo-osmolality and hyponatremia; E66.9 Obesity, unspecified; I25.10 Atherosclerotic heart disease of native coronary artery without angina pectoris; I48.91 Unspecified atrial fibrillation; I07.1 Rheumatic tricuspid insufficiency; K76.1 Chronic passive congestion of liver; E87.5 Hyperkalemia; E86.1 Hypovolemia; I42.0 Dilated cardiomyopathy; I95.2 Hypotension due to drugs; T50.2X5A Adverse effect of carbonic-anhydrase inhibitors, benzothiadiazides and other diuretics, initial encounter; R31.9 Hematuria, unspecified; N18.2 Chronic kidney disease, stage 2 (mild); Z79.01 Long term (current) use of anticoagulants; Z91.14 Patient's other noncompliance with medication regimen; Z68.30 Body mass index [BMI] 30.0-30.9, adult; Z99.81 Dependence on supplemental oxygen; Z98.84 Bariatric surgery status; Z87.891 Personal history of nicotine dependence; Z79.899 Other long term (current) drug therapy; Z79.82 Long term (current) use of aspirin; Z53.29 Procedure and treatment not carried out because of patient's decision for other reasons
CPT/HCPCS: 36415; 71045; 80048; 80053; 81001; 82533; 82553; 82805; 83605; 83735; 83880; 84145; 84443; 84484; 85007; 85014; 85018; 85025; 85027; 85049; 87070; 87205; 92960; 93005; 93010; 93306; 93312; 93798; 94640; 94760; 96365; 96366; 96368; 96372; 96375; 96376; J0282; J1160; J1650; J1940; J1956; J2060; J2370; J2405; J2543; J2704; J2920; J2930; J3490; J7070; J7512; J7620; P9045; S0028

== ENCOUNTER 2019-10-17 16:18 | Inpatient (IN) | payer MEDICARE, OTHER ==
[~2019-10-17 16:18] MED LIST: Iopamidol-370 76% 500 ML 1 ML ONE
[2019-10-17] MEDS ORDERED: Piperacillin/Tazobactam 4.5 GM VIAL ONE (16:36)
--- NOTE | 2019-10-17 16:44 | RAD ---
PORTABLE SUPINE CHEST: 10/17/19 HISTORY: Sepsis and hypotension. COMPARISON: 01/19/19 study. Heart size within normal limits. There are atherosclerotic changes of the aorta. The lungs are clear of any infiltrative process. IMPRESSION: Mild chronic appearing lung change. POS: AMADO
[2019-10-17 16:48] LABS: #Eosinphils 0.1 thou/uL (0.0-0.7); #Lymphocytes 0.8 thou/uL (1.20-3.40); #Monocytes 0.8 thou/uL (0.11-0.59); #Neutrophils 10.7 thou/uL (1.40-6.50); %Basophils 0.1 % (0.0-1.0); %Eosinophils 0.6 % (0.0-10.0); %Lymphocytes 6.6 % (21.0-51.0); %Monocytes 6.6 % (0.0-10.0); %Neutrophils 86.1 % (42.0-75.0); Hemoglobin 6.3 g/dL (14.0-18.0); Mean Corpuscular HGB CONC 29.5 g/dL (32.0-36.0); Mean Corpuscular Hemoglobin 21.4 pg (27.0-31.0); Mean Corpuscular Volume 72.5 fL (78.0-98.0); Mean Platelet Volume 6.8 fL (7.4-10.4); Platelet Count 234 thou/uL (130-400); RBC Distribution Width 15.3 % (11.5-14.5); Red Blood Cell (RBC) Count 2.95 mill/uL (4.70-6.10); White Blood Cell (WBC) Count 12.4 thou/uL (4.8-10.8)
[2019-10-17 17:01] LABS: Anisocytosis SLIGHT = 6-15 cells (100X) (0-5/hpf); Elliptocytes SLIGHT = 2-5 cells (100X) (0-1/hpf); Hypochromia SLIGHT = 6-15 cells (100X) (0-5/hpf); MDiff Complete? YES; Microcytosis SLIGHT = 6-15 cells (100X) (0-5/hpf); Ovalocytes SLIGHT = 2-5 cells (100X) (0-1/hpf); Platelet Morphology Comment Appears Adequate; Poikilocytosis SLIGHT = 6-15 cells (100X) (0-5/hpf); Polychromasia SLIGHT = 2-3 cells (100X) (0-2/hpf); Schistocytes SLIGHT = 2-5 cells (100X) (0-1/hpf)
[2019-10-17 17:20] LABS: ALT (SGPT) 27 U/L (8-55); AST (SGOT) 25 U/L (5-34); Alkaline Phosphatase 75 U/L (40-110); Anion Gap 17 mmol/L (10-20); BUN (Urea Nitrogen) 21 mg/dL (8.4-25.7); Bilirubin, Total 0.6 mg/dL (0.2-1.2); Calc. Creatinine Clearance 0 mL/min (70-130); Calcium 8.6 mg/dL (7.8-10.44); Carbon Dioxide 16 mmol/L (23-31); Chloride 110 mmol/L (98-107); Estimated GFR-MDRD 41; Globulin 2.7 g/dL (2.4-3.5); Glucose 181 mg/dL (80-115); Potassium 4.5 mmol/L (3.5-5.1); Protein, Total 6.7 g/dL (5.8-8.1); Sodium 138 mmol/L (136-145)
[2019-10-17 17:42] LABS: Bilirubin Negative (Negative); Blood, Urine Negative (Negative); Clarity Clear (Clear); Glucose, Urine (Dipstick) Normal (Negative); Leukocyte 250 Leu/uL (Negative); Nitrite Negative (Negative); Protein, Urine (Dipstick) Negative (Neg-Trace); RBC/HPF 0-3 HPF (0-3); Squamous Epithelial 0-3 HPF (0-3); Urobilinogen Normal mg/dL (Less than 2)
[2019-10-17 17:52] LABS: Bacteria/HPF None Seen HPF (None Seen)
[2019-10-17] MEDS ORDERED: Acetaminophen 650 MG Suppository PR PRN (18:10)
[2019-10-17] MEDS ORDERED: Senokot S 8.6-50 MG TAB PO PRN (18:10)
[2019-10-17] MEDS ORDERED: Dextrose 50% Abboject 50 ML SYRINGE SLOW IVP PRN (18:10)
[2019-10-17] MEDS ORDERED: Guaifenesin DM 100-10/5 ML UDCUP PO PRN (18:10)
[2019-10-17] MEDS ORDERED: Acetaminophen 325 MG TAB PO PRN (18:10)
[2019-10-17] MEDS ORDERED: HumaLOG 300 UNITS/3 ML VIAL SC PRN (18:10)
[2019-10-17] MEDS ORDERED: Ondansetron PF 4 MG/2 ML Vial IVP PRN (18:10)
[2019-10-17] MEDS ORDERED: Dextrose 5% in Water 1,000 ML IV PRN (18:10)
[2019-10-17] MEDS ORDERED: Pantoprazole 80 MG in Sodium Chloride 0.9% 100 ML IVPB SCH (18:15)
[2019-10-17 18:41] LABS: Hemoglobin 6.3 g/dL (14.0-18.0)
--- NOTE | 2019-10-17 18:56 | CT ---
CT CHEST WITH IV CONTRAST CT ABDOMEN AND PELVIS WITH IV CONTRAST 10/17/19 HISTORY: Chest and abdominal pain. Diarrhea. Hypertension. FINDINGS: Lungs are hyperinflated with scattered areas of emphysematous bullae and parenchymal scarring. There is prominent calcifications throughout the arterial structures including the coronary arteries. Small hiatal hernia is apparent. No focal lung lesion or mediastinal adenopathy. A 1.5 cm exophytic cyst p rojects posteriorly from the cortex of the left kidney. Old right rib fractures are apparent. Extensive deformity throughout the pelvis with old fractures. A ppearance of prior trauma. Gallbladder is surgically absent. Extensive postsurgical changes of the stomach and bowel. Urinary bladder is unremarkable. No evidence of bowel obstruction or inflammation. There are prominent degenerative changes throughout the lumbar spine. Gas is associated with disc her niation at the L3-4 and L4-5 levels. No evidence of aortic dissection or acute intra-abdominal hemorrhage. IMPRESSION: No acute abnormalities are demonstrated to explain patient's pain. Prominent atherosclerosis. Emphysema. Small hiatal hernia. Prominent degenerative changes lumbar spine including significant disc herniation at the L3-4 and L4- 5 levels. POS: TPC
[2019-10-17 21:26] LABS: INR-International Normal Ratio 1.2; PTT 27.3 SEC (22.9-36.1); Prothrombin Time 15.4 SEC (12.0-14.7)
--- NOTE | 2019-10-17 21:39 | HP ---
REASON FOR ADMISSION: Acute blood loss anemia, acute kidney injury, hypotension on arrival, to rule out sepsis, urinary tract infection. HISTORY OF PRESENTING ILLNESS: The patient gives history of feeling weak from yesterday morning. He also had 2 to 3 episodes of watery stool. He does not recall having blood in the stool but does say that one or two episodes of his stool in the last week has been black. He admits to taking Eliquis for chronic atrial fibrillation. For last 1 week, he has been at home. 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 He does not recall having had exposure to coronavirus. Has not had any fever at home. His systolic blood pressures were in the 60s when EMS arrived, and they gave him a liter of fluid and started him on Levophed prior to arrival here. On arriving here, the patient's systolic blood pressure is 102. His Levophed has been discontinued. Currently, has no complaints of chest pain, palpitation, or PND. He had some abdominal discomfort when he arrived to ER, which was generalized and was colicky in nature. He has been given 30 mL per kg of normal saline for sepsis protocol along with Zosyn. Has no complaints of cough or expectoration. He lives with four other family members in the house and none of them have any sickness as to account for any viral infection as such. No other family has had diarrhea or nausea. PAST MEDICAL AND SURGICAL HISTORY: Chronic atrial fibrillation; history of CHF with ejection fraction of around 20%; has had prior electrical cardioversions done for his atrial fibrillation; history of coronary artery disease with prior stent; COPD; diabetes mellitus, type 2, which got resolved after he had gastric bypass. Per Dr. Carrillo's note, the patient has had nonischemic cardiomyopathy with EF of 25% to 30% in the past and he has had mild coronary artery disease on prior cardiac catheterization. 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 PERSONAL HISTORY: Quit smoking 7 years back, prior to which has smoked 2 packs a day for almost 45 years. Does not abuse alcohol or drugs. Lives with his and two children. No history of early cardiac in the family. CODE STATUS: Full. Power of fundraising officer is his . CURRENT MEDICATIONS: The patient does not recall his medications but knows he is on Eliquis and aspirin. Per prior records, he is on, 1. Lipitor 40 mg p.o. at bedtime. 2. Coreg 3.125 mg twice daily. 3. Digoxin 0.125 mg daily. 4. Lasix 40 mg daily. 5. Dulera inhaler twice daily. 6. Entresto 24/26 mg one tablet twice daily. 7. Spironolactone 25 mg daily. 8. Flomax 0.4 mg at bedtime. 9. Adderall 5 mg daily. ALLERGIES: NO KNOWN DRUG ALLERGIES. REVIEW OF SYSTEMS: CONSTITUTIONAL: Negative for weight loss or gain, ability to conduct usual activities. SKIN: Negative for rash, itching. EYES: Negative for double vision, pain. ENT/MOUTH: Negative for nose bleeding, neck stiffness, pain, tenderness. CARDIOVASCULAR: Negative for palpitations, dyspnea on exertion, orthopnea. RESPIRATORY: Negative for shortness of breath, wheezing, cough, hemoptysis, fever or night sweats. GASTROINTESTINAL: Negative for poor appetite, abdominal pain, heartburn, nausea, vomiting, constipation, or diarrhea. GENITOURINARY: Negative for urgency, frequency, dysuria, nocturia. MUSCULOSKELETAL: Negative for pain, swelling. NEUROLOGIC/PSYCHIATRIC: Negative for anxiety, depression. ALLERGY/IMMUNOLOGIC: Negative for skin rash, bleeding tendency. PHYSICAL EXAMINATION: GENERAL: The patient is a 68-year-old male, who is currently not in any acute distress. VITAL SIGNS: Blood pressure 106/58, pulse 76 per minute, respiratory rate 18 per minute, temperature 97.3 degrees Fahrenheit, and saturating 98% on room air. NECK: Supple. No elevated JVD. HEENT: Eyes; extraocular muscles intact. Pupils reacting to light. Oral cavity, mucous membranes are dry. No exudates or congestion. CARDIOVASCULAR SYSTEM: S1 and S2 heard. Regular rhythm. RESPIRATORY SYSTEM: Air entry 1+ bilateral. Scattered rhonchi plus no wheezes or rales. ABDOMEN: Soft. No tenderness, rigidity, or guarding. EXTREMITIES: Mild peripheral edema. No calf tenderness. VASCULAR SYSTEM: Peripheral pulses 1+ bilateral. No ischemic ulcerations or gangrene. CENTRAL NERVOUS SYSTEM: No gross focal deficits noted. The patient is alert, awake, and oriented well. PSYCHIATRIC SYSTEM: The patient's mood is euthymic. No hallucinations or delusions. LABORATORY DATA: White count of 12, H and H 6.3 and 21, platelet count is 234, MCV is 72 with 86% neutrophils. Serum bicarb 16, BUN 21, creatinine 1.6, and serum glucose 181. Cortisol status 11.3. Urinalysis shows signs of possible UTI. IMAGING DATA: CT chest, abdomen, and pelvis with IV contrast done shows no acute abnormalities. Prominent atherosclerosis, emphysema, small hiatal hernia. Disk herniation at L3-4 and L4-5 levels. CLINICAL IMPRESSION AND PLAN: The patient will be admitted to telemetry for acute blood loss anemia with patient being on Eliquis and possible gastrointestinal bleed. He has had 2 episodes of diarrhea, unclear if this was due to melena. We will also obtain stool for C diff and cultures as well. He was hypotensive at home, but he is hemodynamically stable now. He will be getting 2 units of packed red blood cells stat. We will obtain H and H q.6 hourly, Protonix drip, blood and urine cultures, and empirically place him on Levaquin for now. COVID-19 test smear has been obtained in the ER. 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 We will continue Lipitor, digoxin, Dulera inhaler, and Flomax as before. Airborne and droplet precautions will be continued until patient is COVID-19 negative. We will keep him on clear liquid diet for now. GI consultation with Dr. Olivera will be requested as patient might need Eliquis in view of recurrent atrial fibrillation and risk of cerebrovascular accident. [facility] Job ID: [id number]
[2019-10-17 21:41] LABS: Iron 18 ug/dL (65-175); Iron Binding Capacity, Total 464 mcg/dL (261-462)
[2019-10-17] MEDS: Atorvastatin Calcium 40 MG TAB PO SCH (21:51)
[2019-10-17] MEDS: Tamsulosin HCl 0.4 MG CAP PO SCH (21:51)
[2019-10-17 22:07] LABS: Ferritin 10.75 ng/mL (22-322)
[2019-10-17] MEDS: Mometasone 100 MCG/Formoterol 5 MCG 120 PUFF INHALER INH SCH (22:54)
[2019-10-18] MEDS ORDERED: Sodium Chloride 0.9% 500 ML IV SCH (00:45)
[2019-10-18 02:19] LABS: Hemoglobin 9.3 g/dL (14.0-18.0)
[2019-10-18 02:42] LABS: Troponin I 0.022 ng/mL (< 0.028)
[2019-10-18 02:44] LABS: ALT (SGPT) 23 U/L (8-55); AST (SGOT) 21 U/L (5-34); Albumin 3.5 g/dL (3.4-4.8); Alkaline Phosphatase 58 U/L (40-110); Anion Gap 13 mmol/L (10-20); BUN (Urea Nitrogen) 21 mg/dL (8.4-25.7); Bilirubin, Total 0.8 mg/dL (0.2-1.2); Calc. Creatinine Clearance 70 mL/min (70-130); Calcium 8.2 mg/dL (7.8-10.44); Carbon Dioxide 21 mmol/L (23-31); Chloride 111 mmol/L (98-107); Estimated GFR-MDRD 52; Globulin 2.7 g/dL (2.4-3.5); Glucose 91 mg/dL (80-115); Potassium 4.8 mmol/L (3.5-5.1); Protein, Total 6.2 g/dL (5.8-8.1); Sodium 140 mmol/L (136-145)
[2019-10-18 06:25] LABS: Hemoglobin 9.2 g/dL (14.0-18.0)
[2019-10-18] MEDS: Mometasone 100 MCG/Formoterol 5 MCG 120 PUFF INHALER INH SCH ×2 (08:10→17:48)
[2019-10-18] MEDS ORDERED: DEXTROAMPHETAMINE PO SCH (09:00)
[2019-10-18] MEDS ORDERED: AMPHETAMINE PO SCH (09:00)
[2019-10-18] MEDS: Digoxin 0.125 MG TAB PO SCH (09:28)
[2019-10-18] MEDS: Cefepime 1 GM in Sodium Chloride 0.9% 100 ML IVPB SCH ×2 (09:30→20:45)
--- NOTE | 2019-10-18 15:49 | CON ---
DATE OF CONSULTATION: REASON FOR CONSULTATION: Iron deficiency anemia. HISTORY OF PRESENT ILLNESS: Mr. Pérez is a 68-year-old, who came to the emergency room yesterday evening for complaints of abdominal discomfort and also high blood pressure. He reported eating pancakes, then had some diarrhea, could not get out of a chair, so he called 911. Apparently on arrival, EMS found his systolic to be in the 60s and they gave him some fluid bolus and started on some Levophed. When he came to the emergency room, he had no more abdominal pain. He was found to have a hemoglobin around 6. He had noted to travel to [place], so he had COVID testing done. He denies cough, shortness of breath, fever, chills, URI symptoms or sick contacts. He also had a CAT scan of the abdomen, pelvis and chest. Those were apparently normal. It is unclear why those were performed. In talking to the patient, he had a bariatric surgery, gastric bypass, about 25 years ago and he had a colonoscopy about 25 years ago. He tells me he has not seen any red blood in his stools or black tarry stools. He admits there is no change in caliber, weight, or appetite. He was given 2 units of blood in the emergency room and his pressure came up. He is off pressors now. He does take Eliquis and aspirin. These were apparently started last January when he was found to have atrial fibrillation. He states that when he goes to a doctor, he gets his blood work done, either with Dr. Carrillo or Dr. Whipple. I do not see a hemoglobin prior to this admission since January 2019, at which time it was 13; 6.3 on this admission; presently 9.3 and 9.2, the last two times it was checked. Other studies notable for an iron of 18, saturation 4%, and ferritin of 10. In July, he had a comprehensive metabolic profile, but no CBC. PAST MEDICAL HISTORY: CHF; atrial fibrillation; EF about 25%, the patient refused AICD last admission; type 2 diabetes; COPD; prior coronary stenting. PERSONAL HISTORY: He stopped smoking seven years ago. 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 He does not use drugs or alcohol. His and children live with him. MEDICATIONS: At home, 1. Lipitor. 2. Eliquis. 3. Aspirin. 4. Coreg. 5. Digoxin. 6. Lasix. 7. Dulera inhaler. 8. Entresto. 9. Spironolactone. 10. Flomax. 11. Adderall. ALLERGIES: NONE KNOWN. REVIEW OF SYSTEMS: GASTROINTESTINAL: Negative for dysphagia, odynophagia, weight loss, change in appetite, or change in stool caliber. Remainder of GI review of systems is per HPI. CARDIOVASCULAR: Negative for chest pain, shortness of breath, dyspnea on exertion, orthopnea, or edema. RESPIRATORY: Negative for cough, fever, chills, sweats, dyspnea, wheezing, or hoarseness. PHYSICAL EXAMINATION: VITAL SIGNS: Pulse is 70, blood pressure 125/55. GENERAL: He is alert and oriented to person and time. OROPHARYNX: No lesions. LUNGS: Notable for slight expiratory wheeze. Good air movement. HEART: Irregular rate and rhythm. ABDOMEN: Soft and nontender with no rebound or guarding. No palpable hepatosplenomegaly is noted. Scars are well healed. LABORATORY DATA: LFTs normal in this admission. Albumin 4.0, protein 6.7. Cortisol was 11. B12 is 360. Lactic acid is 1.8. BUN and creatinine are 21 and 1.68. Sodium 138, potassium 4.5. Last hemoglobin at 6:00 was 9.2. IMAGING STUDIES: CT scan of the abdomen and pelvis; no acute abnormalities, emphysema, prominent arthrosclerotic disease, small hiatal hernia, degenerative joint disease in the back. ASSESSMENT: 1. This is a gentleman, who was started on Plavix and aspirin 9 months ago. He had a normal hemoglobin at that time. His hemoglobin was 6 when he came in. He has iron deficiency. He has no overt bleeding. He has had no recent endoscopies. This seems to either probably related to chronic gastrointestinal blood loss related to his anticoagulation and possibly he got some issues with absorption of iron secondary to remote history of bariatric surgery. 2. The patient had a normal CAT scan of the abdomen, pelvis, and chest. It is unclear why this was done in the emergency room, but it was normal. 3. Chronic obstructive pulmonary disease, mild. 4. History of travel to high-risk areas, but that was over two weeks ago. He had a swab of his nasopharynx anyway in the ER. He is now on rule out COVID situation. RECOMMENDATIONS: 1. Let the patient eat. 2. Protonix IV q.12 hours. 3. Once he is cleared from a COVID standpoint, we can perform an upper and lower endoscopy and help stratify whether or not and when he can go back on his blood thinners. 4. I would recommend to him that he talk to his residence manager and primary care physician about getting blood count done on regular intervals if he is going to be on chronic anticoagulation. 5. He needs to be on a multivitamin daily for his gastric bypass and iron supplementation daily for his gastric bypass as well. Job ID: [id number]
[2019-10-18] MEDS: Atorvastatin Calcium 40 MG TAB PO SCH (20:31)
[2019-10-18] MEDS: Tamsulosin HCl 0.4 MG CAP PO SCH (20:31)
[2019-10-18] MEDS: Melatonin 3 MG TAB PO PRN (21:28)
[2019-10-19] MEDS: Digoxin 0.125 MG TAB PO SCH (08:07)
[2019-10-19] MEDS: Pantoprazole 40 MG VIAL IVP SCH (08:07)
[2019-10-19] MEDS: Mometasone 100 MCG/Formoterol 5 MCG 120 PUFF INHALER INH SCH ×3 (08:10→17:47)
[2019-10-19] MEDS: Cefepime 1 GM in Sodium Chloride 0.9% 100 ML IVPB SCH ×2 (08:26→20:57)
--- NOTE | 2019-10-19 11:43 | PDOC.HOSPP ---
- Subjective Encounter Date: 10/19/19 Subjective: Denies fever, sob, cough, or chest pain, 1 loose stool today. - Objective Vital Signs & Weight: Vital Signs (12 hours) Temp Pulse Resp BP BP Pulse Ox 10/19/19 08:39 97.0 F L 74 17 133/68 94 L 10/19/19 08:07 85 10/19/19 08:00 94 L 10/19/19 04:00 97.3 F L 85 20 118/68 94 L Weight Weight 213 lb 14.4 oz Most Recent Monitor Data Heart Rate from ECG 80 NIBP 125/84 NIBP BP-Mean 97 Respiration from ECG 16 SpO2 97 I&O: 10/18/19 10/19/19 10/20/19 06:59 06:59 06:59 Intake Total 900 1160 Output Total 200 550 Balance 700 610 Result Diagrams: 10/18/19 06:04 10/18/19 02:10 Additional Labs: Accuchecks 10/19/19 10/18/19 10/18/19 05:49 20:26 16:14 POC Glucose 103 124 H 171 H 10/18/19 13:08 POC Glucose 130 H Hospitalist ROS - Medication Medications: Active Medications Generic Name Dose Route Start Last Admin Trade Name Freq PRN Reason Stop Dose Admin Atorvastatin Calcium 40 mg 10/17/19 21:00 10/18/19 20:31 Lipitor PO 40 mg HS KOFI Administration Digoxin 0.125 mg 10/18/19 09:00 10/19/19 08:07 Lanoxin PO 0.125 mg DAILY KOFI Administration Cefepime HCl 1 gm/ Sodium 100 mls @ 200 mls/hr 10/18/19 09:00 10/19/19 08:26 Chloride IVPB 100 mls Q12HR KOFI Administration Melatonin 3 mg 10/18/19 16:36 10/18/19 21:28 Melatonin PO 3 mg HS PRN Administration Insomnia Mometasone Furoate/Formoterol Fumar 0 puff 10/19/19 06:30 10/19/19 08:10 Dulera 100 Mcg/5 Mcg Inhaler INH 1 puff BID-RT KOFI Administration Pantoprazole Sodium 40 mg 10/19/19 09:00 10/19/19 08:07 Protonix IVP 40 mg DAILY KOFI Administration Sodium Chloride 10 ml 10/17/19 21:00 10/19/19 08:08 Flush - Normal Saline IVF 10 ml Q12HR KOFI Administration Tamsulosin HCl 0.4 mg 10/17/19 21:00 10/18/19 20:31 Flomax PO 0.4 mg HS KOFI Administration - Exam General Appearance: awake alert ENT: normocephalic atraumatic Neck: supple, no JVD Heart: RRR Respiratory: CTAB, no wheezes, no rales, no ronchi, normal chest expansion Gastrointestinal: soft, non-tender, non-distended Neurological: cranial nerve grossly intact Hosp A/P (1) Acute posthemorrhagic anemia Code(s): D62 - ACUTE POSTHEMORRHAGIC ANEMIA Status: Acute (2) Occult GI bleeding Status: Acute (3) Sepsis Code(s): A41.9 - SEPSIS, UNSPECIFIED ORGANISM Status: Acute (4) UTI (urinary tract infection) Status: Acute (5) Diarrhea Code(s): R19.7 - DIARRHEA, UNSPECIFIED Status: Acute (6) Afib Code(s): I48.91 - UNSPECIFIED ATRIAL FIBRILLATION Status: Acute (7) Dilated cardiomyopathy Code(s): I42.0 - DILATED CARDIOMYOPATHY Status: Acute - Plan H&H stable. COVID NEGATIVE. GI may proceed with endoscopic evaluation. UA positive for enterococcus. Continue antibiotics. C diff pending.
[2019-10-19] MEDS ORDERED: GoLYTELY 4,000 ml Bottle PO SCH (14:30)
--- NOTE | 2019-10-19 15:04 | PRG ---
DATE OF SERVICE: 10/19/2019 SUBJECTIVE: Mr. Pérez is ruled out for COVID. Mr. Pérez had loose stool today and I checked the C diff, but he states that is kind of normal for him since his gastric bypass surgery. He has had no melena or bleeding. OBJECTIVE: VITAL SIGNS: Temperature is 97, pulse 74, blood pressure 133/68. ABDOMEN: Soft, nontender. GENERAL: He is resting comfortably in bed. LABORATORY DATA: Hemoglobin is 9.2 and stable, he was admitted with a hemoglobin of 6.3, this was dropped from January of 2019 from 13.2. His MCV is 72. He has never had a colonoscopy. He has had a previous gastric bypass surgery. ASSESSMENT: 1. Severe microcytic anemia and iron deficiency. Started on aspirin and Plavix 9 months ago. 2. Normal CAT scan of the chest, abdomen, and pelvis. 3. Chronic obstructive pulmonary disease, mild, stable. 4. History of travel to high risk area with negative COVID, negative flu screen, and no symptoms. PLAN: 1. EGD and colonoscopy tomorrow. 2. 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 3. He needs multivitamin and iron daily for his gastric bypass. Job ID: [id number]
--- NOTE | 2019-10-19 18:06 | CON ---
DATE OF CONSULTATION: 10/19/2019 REASON FOR CONSULTATION: GI bleeding in the setting of Eliquis for atrial fibrillation. HISTORY OF PRESENT ILLNESS: Mr. Pérez is a pleasant 68-year-old white gentleman, who comes to the hospital for dizziness. He was seen in the ER and found to have a hemoglobin of 6. He was admitted. He was ruled out for COVID-19 with a PCR that was negative. He was given blood transfusions and is feeling much better. He has a known nonischemic cardiomyopathy with an EF of 25% to 30%. He has been offered an AICD in the past, but he has refused. He had never had any bleeding issues. He has chronic atrial fibrillation and has been on Eliquis for about a year now for stroke prophylaxis without issues. Denies any chest pain, tightness, or pressure. PAST MEDICAL HISTORY: 1. COPD. 2. Nonischemic cardiomyopathy, EF of 25% to 30%. 3. Obesity. 4. Type 2 diabetes, which resolved after gastric bypass and weight loss. PAST SURGICAL HISTORY: 1. Gastric bypass. 2. Left heart catheterization showing mild coronary artery disease. SOCIAL HISTORY: Former smoker. 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 FAMILY HISTORY: Noncontributory. OUTPATIENT MEDICATIONS: 1. Prednisone. 2. Tamsulosin. 3. Aldactone 25 mg a day. 4. Entresto 24/26 b.i.d. 5. Dulera. 6. Advil PM caplet. 7. Lasix 40 mg a day. 8. Digoxin 0.125 daily. 9. Adderall. 10. Carvedilol 3.125 b.i.d. 11. Atorvastatin 40 mg at bedtime. 12. Aspirin 81 a day. 13. Eliquis 5 mg b.i.d. ALLERGIES: NO KNOWN DRUG ALLERGIES. REVIEW OF SYSTEMS: A 12-point review of systems was done and was all negative unless stated in the history of present illness. PHYSICAL EXAMINATION: VITAL SIGNS: Temperature 97.5, pulse 64, respiratory rate 18, saturating 96% on room air, blood pressure 147/73. GENERAL: Awake, alert, oriented x3, in no distress. HEENT: Normocephalic and atraumatic. NECK: Supple. LUNGS: Clear. CARDIOVASCULAR: Irregularly irregular. Heart rate in the 70s. ABDOMEN: Soft. Positive bowel sounds. EXTREMITIES: No edema. SKIN: Warm and dry. LABORATORY DATA: Laboratory work was reviewed. CBC with a white count of 12; hemoglobin was 6.3 initially, up to 9.2 after transfusion; platelet count 234. Coags were unremarkable. Chemistries were unremarkable except for creatinine of 1.68, down to 1.36 after blood transfusion. Troponin was negative. total bilirubin, AST, and ALT were normal. Alkaline phosphatase was normal. Albumin was 3.5. UA showed 250 leukocyte esterase, 4 to 6 white cells. COVID-19 PCR was negative. ASSESSMENT: 1. Iron deficiency anemia. 2. No overt bleeding, but suspicious for blood-loss anemia. 3. Chronic obstructive pulmonary disease. 4. Nonischemic cardiomyopathy with an ejection fraction of 25%. PLAN: 1. Agree with endoscopy evaluation as it will change our management; if he has a reversible cause, if there is some tumor that can be excised, if there is an ulcer that can be treated. Once this is treated, he can restart Eliquis for stroke prophylaxis, probably no aspirin. If he has no obvious reason, we will have to stop Eliquis indefinitely, and he will be a candidate for a Watchman device or a Lariat device. 2. Agree with continuing to hold aspirin and Eliquis. 3. Further recommendations per results of endoscopy tomorrow. 4. It should be safe to perform from the cardiac perspective. He has nonischemic cardiomyopathy. Judicious use of fluids for procedure. Thank you for letting us participate in the care of your patient. We will follow up. Job ID: [id number]
[2019-10-19] MEDS ORDERED: Mometasone 100 MCG/Formoterol 5 MCG 120 PUFF INHALER INH SCH (18:30)
[2019-10-19] MEDS: Atorvastatin Calcium 40 MG TAB PO SCH (20:57)
[2019-10-19] MEDS: Tamsulosin HCl 0.4 MG CAP PO SCH (20:57)
--- NOTE | 2019-10-19 21:12 | CON ---
DATE OF CONSULTATION: 10/19/2019 HISTORY OF PRESENT ILLNESS: Shakir Pérez is a 68-year-old male. He has been seen by me in the past for COPD. He was admitted with GI blood loss and transfused. He has a cardiomyopathy as well. He says he is feeling great. Told by the nursing staff that he has C diff colitis. It is my understanding he is on the schedule for endoscopy tomorrow. PAST MEDICAL HISTORY: Remarkable for, 1. Cardiomyopathy. He has declined defibrillator placement. 2. History of chronic obstructive pulmonary disease. 3. Diabetes. 4. History of gastric bypass in the past. 5. Minimal coronary artery disease by cardiac cath. SOCIAL HISTORY: He is a nonsmoker and nondrinker. REVIEW OF SYSTEMS: 10 point review of systems completed, otherwise negative. FAMILY HISTORY: Negative for lung disease in early age. PHYSICAL EXAMINATION: GENERAL: He is in no distress. VITAL SIGNS: He is afebrile, heart rate 74, respiratory rate 17, oximetry is 94 % on room air, and blood pressure 132/68. HEAD AND NECK: Unremarkable. LUNGS: Clear. HEART: Regular rhythm. S1 and S2 are normal. ABDOMEN: Soft and nontender. EXTREMITIES: Without clubbing, cyanosis, or edema. LABORATORY DATA: C diff by my review of available lab is negative. IMPRESSION: 1. Gastrointestinal blood loss, for endoscopy. 2. Chronic obstructive pulmonary disease, which is not a clinical issue. 3. History of medical noncompliance in the past. Lately, he has been very compliant. 4. History of acute renal failure and hypotension associated with over-diuresis last summer. Overall, he appears to be stable. We will follow with the other physicians caring for him. This is a 50 minute consult, with greater than 50% of time spent on unit coordinating care. Job ID: [id number] MTDD
[2019-10-20 04:53] LABS: Eosinophils 2 % (0-10); Hemoglobin 9.1 g/dL (14.0-18.0); Lymphocytes 20 % (21-51); MDiff Complete? YES; Mean Corpuscular HGB CONC 31.8 g/dL (32.0-36.0); Mean Corpuscular Hemoglobin 23.1 pg (27.0-31.0); Mean Corpuscular Volume 72.7 fL (78.0-98.0); Mean Platelet Volume 7.7 fL (7.4-10.4); Monocytes 10 % (0-10); Neutrophil 68 % (42-75); Platelet Count 259 thou/uL (130-400); Platelet Morphology Comment Appears Adequate; Red Blood Cell (RBC) Count 3.94 mill/uL (4.70-6.10); White Blood Cell (WBC) Count 7.8 thou/uL (4.8-10.8)
[2019-10-20 05:11] LABS: Anion Gap 12 mmol/L (10-20); BUN (Urea Nitrogen) 8 mg/dL (8.4-25.7); Calc. Creatinine Clearance 108 mL/min (70-130); Calcium 8.6 mg/dL (7.8-10.44); Carbon Dioxide 26 mmol/L (23-31); Chloride 104 mmol/L (98-107); Estimated GFR-MDRD 85; Glucose 109 mg/dL (80-115); Potassium 3.8 mmol/L (3.5-5.1); Sodium 138 mmol/L (136-145)
[2019-10-20] MEDS: Mometasone 100 MCG/Formoterol 5 MCG 120 PUFF INHALER INH SCH ×2 (06:20→18:50)
[2019-10-20] MEDS ORDERED: EPHEDRINE 25 MG/5 ML SYRINGE ONE (09:23)
[2019-10-20] MEDS ORDERED: PROPOFOL 200 MG/20 ML VIAL ONE (09:23)
[2019-10-20] MEDS ORDERED: Lidocaine 1% PF 5 ML VIAL ONE (09:23)
--- NOTE | 2019-10-20 12:19 | OP ---
DATE OF PROCEDURE: 10/20/2019 PROCEDURES PERFORMED: Esophagogastroduodenoscopy with biopsy, colonoscopy with polypectomy. INDICATION FOR PROCEDURE: Iron deficiency anemia, symptomatic anemia. DESCRIPTION OF PROCEDURE: After the risks and benefits of the procedure were explained to the patient including risks of bleeding, infection, perforation, reactions to anesthesia, aspiration and/or pain, informed consent was obtained. The patient was then taken to the endoscopy suite, where he was placed in the left lateral decubitus position. Once in adequate position, deep sedation was administered via propofol and anesthesia support. Once adequate sedation was achieved, the standard gastroscope was introduced into the mouth with intubation of the esophagus, stomach, and the proximal small intestines with the findings listed below. The patient tolerated this portion of the procedure well with no immediate perioperative complications. Upon conclusion of this portion of the procedure, all equipment was removed from the patient and the bed was rotated 180 degrees in anticipation of the colonoscopy. After a digital rectal examination was performed, the standard colonoscope was introduced into the colon and advanced to the terminal ileum with some difficulty due to poor colonic preparation and looping of the colonoscope. Abdominal pressure was applied to facilitate passage of the colonoscope. The quality of the prep was fair/poor. Despite aggressive irrigation with sterile water and suctioning, the prep was adequate for the evaluation of large/gross lesions, but inadequate for the evaluation of lesions less than 1 cm in size. The patient tolerated the procedure well with no immediate perioperative complications. Upon conclusion of the procedure, all equipment was removed from the patient and he was transferred to PACU in satisfactory condition. EGD FINDINGS: Esophagus: Normal-appearing mucosa was seen in the proximal and mid esophagus; however, four tongues of salmon-colored mucosa was seen in the distal esophagus extending proximally from the gastroesophageal junction. They were not circumferential in nature, but rather extending approximately 2 cm proximal to the GE junction. There was no evidence of erosions, ulcerations, mass lesions, or active/recent bleeding. Multiple biopsies were taken from the salmon-colored mucosa for evaluation of possible Burgos esophagus. Stomach: Surgical change consistent with a Argenis-en-Y gastric bypass was seen upon entry into the stomach. Otherwise, normal-appearing mucosa was seen in the gastric cardia, fundus, body, and at the gastrojejunal anastomosis. There was no evidence of erosions, ulcerations, mass lesions, or active/recent bleeding. Small bowel: Upon entry into the small bowel past the gastrojejunal anastomosis, normal-appearing mucosa was seen in both the efferent and afferent limbs. Advancement through the efferent limb was able to be achieved approximately 20 cm past the gastrojejunal anastomosis with normal-appearing mucosa seen throughout. Multiple random small bowel biopsies were taken from the efferent limb for evaluation of possible celiac sprue. Normal-appearing mucosa was also seen within the efferent limb. There was no evidence of erosions, ulcerations, mass lesions, or active/recent bleeding. IMPRESSION: 1. 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 2. Surgical change consistent with a Argenis-en-Y gastric bypass with normal-appearing gastric pouch and anastomosis. 3. No etiology for the patient's anemia was seen during this examination. COLONOSCOPY FINDINGS: Digital rectal exam: Medium to large external hemorrhoids were seen on external examination with no evidence of active/recent bleeding. Colon findings: A large amount of retained solid and liquid stool was seen throughout the entire colon limiting visualization of the colonic mucosa despite aggressive irrigation with sterile water and suctioning of the mucosa seen. Normal-appearing mucosa was seen within the terminal ileum as well as at the ileocecal valve and appendiceal orifice. Normal-appearing mucosa was then seen in the cecum, ascending colon, transverse colon, descending colon, and sigmoid colon. A 5 to 6 mm polyp was seen in the rectum and completely removed with snare cautery polypectomy. It was retrieved and placed in a specimen jar for further evaluation. Large internal hemorrhoids were seen on rectal retroflexion, but no evidence of recent bleeding. However, along one of these hemorrhoids, there was a 5 mm ulceration with clean edges and no high-risk stigmata of bleeding. IMPRESSION: 1. Poor colonic preparation seen throughout the entire colon limiting visualization (inadequate for the evaluation of lesions less than 1 cm in size). 2. 5 to 6 mm rectal polyp, status post snare cautery polypectomy. 3. Medium to large internal and external hemorrhoids with no evidence of recent bleeding. 4. No etiology for the patient's anemia was seen during this examination. RECOMMENDATIONS: 1. Would continue to trend his H and H and transfuse as necessary to maintain an H and H of 7/21. 2. Continue to monitor clinically for signs of active GI bleeding. 3. Would recommend a higher fiber diet in light of large external hemorrhoids and would advise the patient again spending prolonged amounts of time in the toilet. 4. Would recommend either Preparation H maximal strength for the external hemorrhoids or hydrocortisone suppositories for both the internal and external hemorrhoids. 5. We will follow up on the polyp results with repeat colonoscopy depending on the pathology report. 6. Would recommend a repeat colonoscopy in the next 6 to 12 months as part of completion colonoscopy and then a polypectomy performed at that time. 7. Would consider obtaining a capsule endoscopy as an outpatient given the lack of evidence for recent or overt GI bleeding in light of iron deficiency anemia/symptomatic anemia. 8. We will follow up on the upper endoscopy biopsy results as well. If positive for Burgos esophagus, the patient will need repeat upper endoscopy in 3 years. Given the lack of findings in the upper and lower GI tract consistent with bleeding/anemia, we will sign off at this time. Please have the patient follow up in the GI clinic 2 to 3 weeks after discharge for possible capsule endoscopy for further evaluation of his iron-deficiency anemia. Please call with any additional questions. Job ID: [id number]
[2019-10-20] MEDS: Digoxin 0.125 MG TAB PO SCH (13:29)
[2019-10-20] MEDS: Pantoprazole 40 MG VIAL IVP SCH (13:35)
[2019-10-20] MEDS: Cefepime 1 GM in Sodium Chloride 0.9% 100 ML IVPB SCH ×2 (13:36→14:03)
--- NOTE | 2019-10-20 14:51 | PRG ---
DATE OF SERVICE: 10/20/2019 Mr. Pérez underwent endoscopy. He is wide awake and had no complications with the procedure. He had esophageal biopsies done, but no source of bleeding was seen with upper and lower endoscopy. Lungs are clear. He is having no COPD issues in this admission. His hemoglobin has been stable at 9.3, 9.2, and 9.1 from 10/17 to 10/19 respectively. My perspective would not be unreasonable for him to go home to be followed as an outpatient. He has a December appointment with me. He can move this back to April as his COPD is quite stable since he has become compliant. Job ID: [id number]
--- NOTE | 2019-10-20 17:17 | PDOC.CPN ---
- Subjective Date: 10/20/19 Time: 17:14 Interval history: No source of bleeding from EGD/Colonoscopy. No overt bleeding. - Review of Systems General: denies: fever/chills, weight/appetite/sleep changes, night sweats, fatigue Respiratory: denies: cough, congestion, shortness of breath, exercise intolerance Cardiovascular: denies: chest pain, palpitation, edema, paroxysmal nocturnal dyspnea, orthopnea Gastrointestinal: denies: nausea, vomiting, diarrhea, constipation, abd pain, GI bleeding Musculoskeletal: denies: pain, tenderness, stiffness, swelling, arthritis/ arthralgias Neurological: denies: numbness, syncope, seizure, weakness - Objective Allergies/Adverse Reactions: Allergies Allergy/AdvReac Type Severity Reaction Status Date / Time No Known Drug Allergies Allergy Verified 12/08/17 21:43 Visit Medications: Current Medications Acetaminophen (Tylenol) 650 mg PO Q4H PRN PRN Reason: Headache/Fever/Mild Pain (1-3) Acetaminophen (Tylenol) 650 mg DC Q4H PRN PRN Reason: Headache/Fever/Mild Pain (1-3) Atorvastatin Calcium (Lipitor) 40 mg PO HS [facility] Last Admin: 10/19/19 20:57 Dose: 40 mg Dextrose/Water (Dextrose 50%) 25 gm SLOW IVP PRN PRN PRN Reason: Hypoglycemia Digoxin (Lanoxin) 0.125 mg PO DAILY [facility] Last Admin: 10/20/19 13:29 Dose: 0.125 mg Glucagon (Glucagon) 1 mg IM PRN PRN PRN Reason: Hypoglycemia Guaifenesin/Dextromethorphan (Robitussin Dm) 15 ml PO Q4H PRN PRN Reason: Cough Dextrose/Water (D5w) 1,000 mls @ 0 mls/hr IV .Q0M PRN PRN Reason: Hypoglycemia Cefepime HCl 1 gm/ Sodium (Chloride) 100 mls @ 200 mls/hr IVPB 0100,1300 [facility] Last Admin: 10/20/19 13:36 Dose: 100 mls Insulin Human Lispro (Humalog) 0 units SC .MODERATE SLIDING SC PRN PRN Reason: Moderate Correctional Scale Melatonin (Melatonin) 3 mg PO HS PRN PRN Reason: Insomnia Last Admin: 10/18/19 21:28 Dose: 3 mg Mometasone Furoate/Formoterol Fumar (Dulera 100 Mcg/5 Mcg Inhaler) 0 puff INH BID-RT [facility] Last Admin: 10/20/19 06:20 Dose: 1 puff Ondansetron HCl (Zofran) 4 mg IVP Q6H PRN PRN Reason: Nausea/Vomiting Last Admin: 10/19/19 16:10 Dose: 4 mg Pantoprazole Sodium (Protonix) 40 mg IVP DAILY [facility] Last Admin: 10/20/19 13:35 Dose: 40 mg Dextroamphetamine/Amphetamine [ Adderall 5 Mg Tablet ] 0 each PO DAILY [facility] Senna/Docusate Sodium (Senokot S) 2 tab PO BIDPRN PRN PRN Reason: Constipation Sodium Chloride (Flush - Normal Saline) 10 ml IVF Q12HR [facility] Last Admin: 10/20/19 13:34 Dose: 10 ml Sodium Chloride (Flush - Normal Saline) 10 ml IVF PRN PRN PRN Reason: Saline Flush Sodium Chloride (Flush - Normal Saline) 10 ml IVF PRN PRN PRN Reason: Saline Flush Sodium Chloride (Flush - Normal Saline) 10 ml IVF PRN PRN PRN Reason: Saline Flush Tamsulosin HCl (Flomax) 0.4 mg PO HS [facility] Last Admin: 10/19/19 20:57 Dose: 0.4 mg Vital Signs & Weight: Vital Signs Temp Pulse Resp BP BP Pulse Ox 10/20/19 15:19 98.3 F 95 16 129/71 93 L 10/20/19 13:29 81 10/20/19 13:21 97.3 F L 81 18 125/75 91 L 10/20/19 12:25 91 L 10/20/19 12:20 81 18 132/76 90 L 10/20/19 06:20 93 17 94 L Admit Weight 213 lb Weight 214 lb 9.6 oz - Physical Exam General: alert & oriented x3 HEENT: mucus membranes moist Neck: supple neck Cardiac: irregularly regular Lungs: clear to auscultation Neuro: grossly intact Abdomen: active bowel sounds Extremities: no edema - Labs Result Diagrams: 10/20/19 04:22 10/20/19 04:22 Troponin/CKMB CK-MB (CK-2) 2.0 ng/mL (0-6.6) 10/17/19 17:01 Troponin I 0.022 ng/mL (< 0.028) 10/18/19 02:10 - Telemetry Supraventricular conduction: atrial fibrillation - Assessment/Plan Assessment/Plan: 1. Iron defficiency anemia. 2. No clear source of bleeding on EGD/COlonoscpy 3. S/P Polypectomy 4. Afib Rate controlled. 5. Non ischemic CM EF at 25-30% PLAN: - Continue to hold full anticoagulation - Will refer as an outpatient to EP for consideration of a watchman device. - Aspirin alone for stroke prophylaxis for now. - Will sign off. Please call with any questions.
[2019-10-20] MEDS: Tamsulosin HCl 0.4 MG CAP PO SCH (20:49)
[2019-10-20] MEDS: Atorvastatin Calcium 40 MG TAB PO SCH (20:49)
--- NOTE | 2019-10-20 21:17 | PDOC.HOSPP ---
- Subjective Encounter Date: 10/20/19 - Objective Vital Signs & Weight: Vital Signs (12 hours) Temp Pulse Resp BP BP Pulse Ox 10/20/19 19:00 97.8 F 88 16 129/67 93 L 10/20/19 18:50 89 16 95 10/20/19 15:19 98.3 F 95 16 129/71 93 L 10/20/19 13:29 81 10/20/19 13:21 97.3 F L 81 18 125/75 91 L 10/20/19 12:25 91 L 10/20/19 12:20 81 18 132/76 90 L Weight Admit Weight 213 lb Weight 214 lb 9.6 oz Most Recent Monitor Data Heart Rate from ECG 80 NIBP 125/84 NIBP BP-Mean 97 Respiration from ECG 16 SpO2 97 I&O: 10/19/19 10/20/19 10/21/19 06:59 06:59 06:59 Intake Total 1160 3680 320 Output Total 550 Balance 610 3680 320 Result Diagrams: 10/20/19 04:22 10/20/19 04:22 Hospitalist ROS - Medication Medications: Active Medications Generic Name Dose Route Start Last Admin Trade Name Freq PRN Reason Stop Dose Admin Atorvastatin Calcium 40 mg 10/17/19 21:00 10/20/19 20:49 Lipitor PO 40 mg HS [facility] Administration Digoxin 0.125 mg 10/18/19 09:00 10/20/19 13:29 Lanoxin PO 0.125 mg DAILY [facility] Administration Cefepime HCl 1 gm/ Sodium 100 mls @ 200 mls/hr 10/20/19 13:00 10/20/19 13:36 Chloride IVPB 100 mls 0100,1300 [facility] Administration Melatonin 3 mg 10/18/19 16:36 10/18/19 21:28 Melatonin PO 3 mg HS PRN Administration Insomnia Mometasone Furoate/Formoterol Fumar 0 puff 10/19/19 06:30 10/20/19 18:50 Dulera 100 Mcg/5 Mcg Inhaler INH 1 puff BID-RT [facility] Administration Ondansetron HCl 4 mg 10/17/19 18:10 10/19/19 16:10 Zofran IVP 4 mg Q6H PRN Administration Nausea/Vomiting Pantoprazole Sodium 40 mg 10/19/19 09:00 10/20/19 13:35 Protonix IVP 40 mg DAILY [facility] Administration Sodium Chloride 10 ml 10/17/19 21:00 10/20/19 20:49 Flush - Normal Saline IVF 10 ml Q12HR [facility] Administration Tamsulosin HCl 0.4 mg 10/17/19 21:00 10/20/19 20:49 Flomax PO 0.4 mg HS [facility] Administration Hosp A/P (1) Acute posthemorrhagic anemia Code(s): D62 - ACUTE POSTHEMORRHAGIC ANEMIA Status: Acute (2) Occult GI bleeding Status: Acute (3) Sepsis Code(s): A41.9 - SEPSIS, UNSPECIFIED ORGANISM Status: Acute (4) UTI (urinary tract infection) Status: Acute (5) Diarrhea Code(s): R19.7 - DIARRHEA, UNSPECIFIED Status: Acute (6) Afib Code(s): I48.91 - UNSPECIFIED ATRIAL FIBRILLATION Status: Acute (7) Dilated cardiomyopathy Code(s): I42.0 - DILATED CARDIOMYOPATHY Status: Acute - Plan H&H stable. COVID NEGATIVE. Status post EGD and colonoscopy which showed Burgos esophagus and rectal polyp but no obvious source of active bleeding. UA positive for enterococcus. Continue antibiotics. C diff negative.
[2019-10-20] MEDS: Melatonin 3 MG TAB PO PRN (21:48)
[2019-10-21] MEDS: Cefepime 1 GM in Sodium Chloride 0.9% 100 ML IVPB SCH (00:14)
[2019-10-21 03:29] VITALS: BMI 31.9
[2019-10-21 04:56] LABS: Anion Gap 10 mmol/L (10-20); BUN (Urea Nitrogen) 10 mg/dL (8.4-25.7); Calc. Creatinine Clearance 111 mL/min (70-130); Calcium 8.6 mg/dL (7.8-10.44); Carbon Dioxide 28 mmol/L (23-31); Chloride 106 mmol/L (98-107); Estimated GFR-MDRD 87; Glucose 100 mg/dL (80-115); Potassium 4.2 mmol/L (3.5-5.1); Sodium 140 mmol/L (136-145)
[2019-10-21 05:42] LABS: Band 2 % (5-11); Hypochromia SLIGHT = 6-15 cells (100X) (0-5/hpf); Lymphocytes 12 % (21-51); MDiff Complete? YES; Mean Corpuscular HGB CONC 30.2 g/dL (32.0-36.0); Mean Corpuscular Hemoglobin 22.3 pg (27.0-31.0); Mean Corpuscular Volume 73.9 fL (78.0-98.0); Mean Platelet Volume 7.9 fL (7.4-10.4); Microcytosis SLIGHT = 6-15 cells (100X) (0-5/hpf); Monocytes 8 % (0-10); Neutrophil 78 % (42-75); Platelet Count 276 thou/uL (130-400); Platelet Morphology Comment Appears Adequate; RBC Distribution Width 17.6 % (11.5-14.5); Red Blood Cell (RBC) Count 4.04 mill/uL (4.70-6.10); White Blood Cell (WBC) Count 8.9 thou/uL (4.8-10.8)
[2019-10-21 07:35] VITALS: BP 141/69; TEMP 97.7
[2019-10-21] MEDS: Pantoprazole 40 MG VIAL IVP SCH (07:48)
[2019-10-21] MEDS: Digoxin 0.125 MG TAB PO SCH (07:49)
[2019-10-21] MEDS: Mometasone 100 MCG/Formoterol 5 MCG 120 PUFF INHALER INH SCH (07:56)
--- NOTE | 2019-10-21 12:03 | DIS ---
DATE OF ADMISSION: 10/17/2019 DATE OF DISCHARGE: 10/21/2019 DISCHARGE DIAGNOSES: 1. Acute post hemorrhagic anemia. 2. Occult gastrointestinal bleeding. 3. Sepsis. 4. Urinary tract infection. 5. Diarrhea. 6. Atrial fibrillation. 7. Dilated cardiomyopathy. DISCHARGE MEDICATIONS: 1. Pantoprazole 40 mg orally daily. 2. Atorvastatin 40 mg orally nightly. 3. Digoxin 0.125 mg orally daily. 4. Dulera one puff inhaled twice daily. 5. Flomax 0.4 mg orally nightly. 6. Aspirin 81 mg orally daily. 7. Carvedilol 3.125 mg orally twice daily. The patient was asked not to take this medicine until he talked to his warehouse driver due to borderline low blood pressure. 8. Furosemide 40 mg orally daily. 9. Spironolactone 25 mg orally daily. 10. Entresto 24 mg/26 mg tablet orally twice daily. The patient was asked not to take this medication due to borderline hypertension until he speaks with his warehouse driver. HISTORY OF PRESENT ILLNESS AND HOSPITAL COURSE: The patient is a 68-year-old male with history of dilated cardiomyopathy with EF of 25% to 30%, COPD, obesity, diabetes mellitus type 2, and BPH, who was admitted to the hospital for evaluation of dizziness and symptomatic anemia. The patient takes Eliquis for chronic atrial fibrillation. This medication was placed on hold due to suspected occult bleeding. 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 He denied any fever at home. However, a coronavirus test was obtained in the ER, the results were negative. The patient got 2 units of packed RBCs on the day of admission and his hemoglobin level improved accordingly. He underwent EGD and colonoscopy, and the results showed a Burgos 's esophagus and a rectal polyp, status post snare polypectomy. No source of active bleeding was noted. Eliquis has been held indefinitely and the patient will continue on aspirin for CVA prophylaxis. Cardiology planning for possible outpatient Watchman device placement. The patient's urine culture showed growth of Enterococcus and the patient received IV antibiotics for 5 days during his hospital stay. On the day of discharge, there was no evidence of sepsis. Job ID: [id number] [facility]
--- NOTE | 2019-10-21 13:56 | EKG ---
Test Reason : Blood Pressure : / mmHG Vent. Rate : 071 BPM Atrial Rate : 071 BPM P-R Int : 194 ms QRS Dur : 094 ms QT Int : 394 ms P-R-T Axes : 088 064 256 degrees QTc Int : 428 ms Normal sinus rhythm Low voltage QRS Abnormal ECG Confirmed by AN POLK DO ([id number]), restaurant exped[address] AUGUSTINE ([id number]) on 10/21/2019 1:55:38 PM Referred By: Confirmed By:AN POLK DO
== END 2019-10-21 11:20 | disposition home or self-care (01) | DRG 811 ==
LOC: ERS 16:18 → 2SW 18:10 → CCU 10-18 01:41 → 2SW 10-18 17:31
PROVIDERS: ADMIT Internal Medicine; ATTEND Internal Medicine
PROC: 30233N1 Transfusion of Nonautologous Red Blood Cells into Peripheral Vein, Percutaneous Approach (ICD-10-PCS; principal; 2019-10-17)
PROC: 3E033XZ Introduction of Vasopressor into Peripheral Vein, Percutaneous Approach (ICD-10-PCS; 2019-10-17)
PROC: 0DB18ZX Excision of Upper Esophagus, Via Natural or Artificial Opening Endoscopic, Diagnostic (ICD-10-PCS; 2019-10-20)
PROC: 0DBP8ZZ Excision of Rectum, Via Natural or Artificial Opening Endoscopic (ICD-10-PCS; 2019-10-20)
PROC: 0DB98ZX Excision of Duodenum, Via Natural or Artificial Opening Endoscopic, Diagnostic (ICD-10-PCS; 2019-10-20)
DX: D62 Acute posthemorrhagic anemia (principal); A41.9 Sepsis, unspecified organism; K92.2 Gastrointestinal hemorrhage, unspecified; N39.0 Urinary tract infection, site not specified; I42.0 Dilated cardiomyopathy; I48.20 Chronic atrial fibrillation, unspecified; N17.9 Acute kidney failure, unspecified; R19.7 Diarrhea, unspecified; I95.9 Hypotension, unspecified; J44.9 Chronic obstructive pulmonary disease, unspecified; E66.9 Obesity, unspecified; K22.70 Barrett's esophagus without dysplasia; K63.5 Polyp of colon; E11.9 Type 2 diabetes mellitus without complications; N40.0 Benign prostatic hyperplasia without lower urinary tract symptoms; Z79.01 Long term (current) use of anticoagulants; Z95.5 Presence of coronary angioplasty implant and graft; Z98.0 Intestinal bypass and anastomosis status; Z87.891 Personal history of nicotine dependence; Z68.32 Body mass index [BMI] 32.0-32.9, adult
CPT/HCPCS: 36415; 36416; 36430; 71045; 71260; 74177; 80048; 80053; 81003; 81015; 82533; 82553; 82607; 82728; 82746; 83540; 83550; 83605; 84484; 85007; 85014; 85018; 85025; 85027; 85610; 85730; 86140; 86850; 86900; 86901; 87040; 87045; 87046; 87086; 87324; 87427; 87449; 87804; 88305; 88312; 88313; 93005; 93010; 94664; 96361; 96365; C9113; J0692; J1956; J2001; J2405; J2543; J2704; J3490; P9016; Q9967; U0001

== ENCOUNTER 2021-01-17 09:44 | Outpatient (CLI) | payer MEDICARE | END 2021-01-17 09:45 | disposition home or self-care (01) | LOC: BICRAD 09:44 | PROVIDERS: ATTEND Internal Medicine Critical Care Medicine | DX: R06.00 Dyspnea, unspecified (principal) | CPT/HCPCS: 71046 ==

== ENCOUNTER 2022-02-06 08:24 | Outpatient (CLI) | payer MEDICARE | END 2022-02-06 08:25 | disposition home or self-care (01) | LOC: RAD 08:24 | PROVIDERS: ATTEND Internal Medicine Critical Care Medicine | DX: R06.00 Dyspnea, unspecified (principal); M47.814 Spondylosis without myelopathy or radiculopathy, thoracic region; Z95.0 Presence of cardiac pacemaker | CPT/HCPCS: 71046 ==

== ENCOUNTER 2022-03-10 13:44 | Inpatient (IN) | payer MEDICARE, OTHER ==
[2022-03-10 14:43] LABS: #Basophils 0.1 thou/uL (0.0-0.2); #Eosinphils 0.4 thou/uL (0.0-0.7); #Lymphocytes 1.6 thou/uL (1.20-3.40); #Monocytes 0.9 thou/uL (0.11-0.59); #Neutrophils 4.8 thou/uL (1.40-6.50); %Basophils 0.6 % (0.0-1.0); %Eosinophils 5.2 % (0.0-10.0); %Lymphocytes 20.8 % (21.0-51.0); %Monocytes 11.5 % (0.0-10.0); %Neutrophils 61.8 % (42.0-75.0); Hemoglobin 13.3 g/dL (14.0-18.0); Mean Corpuscular HGB CONC 35.4 g/dL (32.0-36.0); Mean Corpuscular Hemoglobin 33.1 pg (27.0-31.0); Mean Corpuscular Volume 93.6 fL (78.0-98.0); Mean Platelet Volume 7.6 fL (7.4-10.4); Platelet Count 231 thou/uL (130-400); RBC Distribution Width 12.4 % (11.5-14.5); Red Blood Cell (RBC) Count 4.01 mill/uL (4.70-6.10); White Blood Cell (WBC) Count 7.8 thou/uL (4.8-10.8)
[2022-03-10 15:08] LABS: ALT (SGPT) 22 U/L (8-55); AST (SGOT) 22 U/L (5-34); Acetaminophen Less than 10.0 mcg/mL (10.0-30.0); Albumin 3.5 g/dL (3.4-4.8); Alcohol Less than 10 mg/dL (Less than 10); Alkaline Phosphatase 83 U/L (40-110); Anion Gap 15 mmol/L (10-20); BUN (Urea Nitrogen) 21 mg/dL (8.4-25.7); Bilirubin, Total 1.2 mg/dL (0.2-1.2); CK (CPK) 221 U/L (30-200); Calc. Creatinine Clearance 0 mL/min (70-130); Calcium 8.7 mg/dL (7.8-10.44); Carbon Dioxide 23 mmol/L (23-31); Chloride 106 mmol/L (98-107); Estimated GFR 44; Globulin 2.6 g/dL (2.4-3.5); Glucose 170 mg/dL (83-110); Magnesium 1.7 mg/dL (1.6-2.6); Potassium 3.4 mmol/L (3.5-5.1); Protein, Total 6.1 g/dL (5.8-8.1); Salicylate Less than 8.0 mg/dL (15.0-30.0); Sodium 141 mmol/L (136-145)
[2022-03-10] MEDS ORDERED: Iopamidol-370 76% 500 ML 1 ML ONE (15:25)
[2022-03-10 15:34] LABS: CKMB 4.8 ng/mL (0-6.6)
[2022-03-10 17:23] LABS: Bacteria/HPF None Seen HPF (None Seen); Bilirubin Negative (Negative); Blood, Urine Negative (Negative); Clarity Clear (Clear); Glucose, Urine (Dipstick) Normal (Negative); Ketone, Urine Negative (Negative); Leukocyte Negative Leu/uL (Negative); Nitrite Negative (Negative); Protein, Urine (Dipstick) Negative (Neg-Trace); RBC/HPF None Seen HPF (0-3); Specific Gravity, Urine 1.017 (1.002-1.036); Squamous Epithelial 0-3 HPF (0-3); Urobilinogen Normal mg/dL (Less than 2); WBC/HPF 0-3 HPF (0-3)
[2022-03-10] MEDS ORDERED: Acetaminophen 325 MG TAB PO PRN (17:26)
[2022-03-10 17:27] LABS: Amphetamine Detected (NotDetected); Barbiturates Screen Not Detected (NotDetected); Benzodiazepine Screen Not Detected (NotDetected); Cocaine Metabolite Screen Not Detected (NotDetected); Methadone Not Detected (NotDetected); Methamphetamine Not Detected (NotDetected); Opiate Screen Not Detected (NotDetected); Oxycodone Screen Not Detected (NotDetected); Phencyclidine (PCP) Not Detected (NotDetected); THC/Cannabinoid Screen Not Detected (NotDetected); Tricyclic Screen Not Detected (NotDetected)
[2022-03-10] MEDS ORDERED: Enoxaparin Sodium 40 MG/0.4 ML SYRINGE SC SCH (17:30)
[2022-03-10 18:03] LABS: Troponin I 0.469 ng/mL (< 0.028)
[2022-03-10] MEDS: Sodium Chloride 0.9% 1,000 ML IV SCH (19:47)
[2022-03-10] MEDS: Atorvastatin Calcium 20 MG TAB PO SCH (19:55)
[2022-03-10 20:47] LABS: Critical Call Chem Troponin I D7; Troponin I 0.425 ng/mL (< 0.028)
[2022-03-10] MEDS: Mometasone 100 MCG/Formoterol 5 MCG 120 PUFF INHALER INH SCH (21:10)
[2022-03-10] MEDS ORDERED: Melatonin 3 MG TAB PO SCH (23:00)
[2022-03-10] MEDS ORDERED: Sodium Chloride 0.9% 500 ML IV SCH ×2 (23:45→23:59)
[2022-03-11 04:16] LABS: Anion Gap 13 mmol/L (10-20); BUN (Urea Nitrogen) 17 mg/dL (8.4-25.7); Calc. Creatinine Clearance 96 mL/min (70-130); Carbon Dioxide 23 mmol/L (23-31); Chloride 108 mmol/L (98-107); Estimated GFR 83; Glucose 108 mg/dL (83-110); Potassium 3.2 mmol/L (3.5-5.1); Sodium 141 mmol/L (136-145)
[2022-03-11] MEDS: Sodium Chloride 0.9% 1,000 ML IV SCH (05:25)
[2022-03-11] MEDS ORDERED: Potassium Chloride 20 MEQ TAB PO SCH (07:30)
[2022-03-11] MEDS: Mometasone 100 MCG/Formoterol 5 MCG 120 PUFF INHALER INH SCH ×2 (07:51→18:02)
[2022-03-11] MEDS: Enoxaparin Sodium 40 MG/0.4 ML SYRINGE SC SCH (08:34)
[2022-03-11] MEDS: Aspirin Chewable 81 MG TAB PO SCH (08:34)
[2022-03-11] MEDS ORDERED: Non-Formulary Item 1 EACH (Budesonide-Formoterol [Symbicort 80-4.5] 80 MG/4.5 MG Aer) PO SCH (09:00)
[2022-03-11 10:41] LABS: Magnesium 1.6 mg/dL (1.6-2.6)
[2022-03-11] MEDS ORDERED: Magnesium Sulfate 3 GM in Sodium Chloride 0.9% 100 ML IVPB SCH (11:30)
[2022-03-11] MEDS: methylPREDNISolone Sod Succ 40 MG VIAL IVP SCH ×3 (11:46→23:15)
[2022-03-11] MEDS: Amiodarone 450 MG in Dextrose 5% in Water 250 ML IVPB SCH ×2 (12:23→23:14)
[2022-03-11] MEDS ORDERED: Tamsulosin HCl 0.4 MG CAP PO SCH (21:00)
[2022-03-11] MEDS: Melatonin 3 MG TAB PO SCH (21:02)
[2022-03-11] MEDS: Atorvastatin Calcium 20 MG TAB PO SCH (21:03)
[2022-03-12] MEDS ORDERED: Furosemide 40 MG/4 ML VIAL SLOW IVP SCH (05:00)
[2022-03-12 05:09] LABS: Actual Bicarbonate (HCO3a) 21.4 mEq/L (22-28); Base Excess (BEa) -8.2 mEq/L (-2.0 to +3.0); Calcium, Ionized (arterial) 1.19 mmol/L (1.12-1.30); Carboxyhemoglobin (COHb) 0.8 gm% (0.0-3.0); Hemoglobin (Hb) 14.8 g/dL (14.0-18.0); O2 Tension (PaO2), arterial 88.2 mmHg (> 70.0); Potassium - ABG Lab 4.28 mmol/L (3.70-5.30)
[2022-03-12 05:11] LABS: CO2 Tension 61.3 mmHg (35.0-45.0); Puncture Site RRA; pH, Arterial 7.16 (7.35-7.45)
[2022-03-12 05:13] LABS: ALV-art Gradient 120.375 mmHg (0-20)
[2022-03-12 07:00] LABS: Actual Bicarbonate (HCO3a) 22.5 mEq/L (22-28); Base Excess (BEa) -2.9 mEq/L (-2.0 to +3.0); CO2 Tension 41.3 mmHg (35.0-45.0); Calcium, Ionized (arterial) 1.15 mmol/L (1.12-1.30); Carboxyhemoglobin (COHb) 0.7 gm% (0.0-3.0); Hemoglobin (Hb) 14.3 g/dL (14.0-18.0); O2 Tension (PaO2), arterial 72.8 mmHg (> 70.0); Potassium - ABG Lab 4.01 mmol/L (3.70-5.30); pH, Arterial 7.35 (7.35-7.45)
[2022-03-12 07:01] LABS: ALV-art Gradient 160.775 mmHg (0-20); Puncture Site RBA
[2022-03-12] MEDS: Mometasone 100 MCG/Formoterol 5 MCG 120 PUFF INHALER INH SCH ×2 (07:03→22:13)
[2022-03-12] MEDS: Ipratropium/Albuterol Sulfate 4 GM AER IH SCH ×4 (07:04→22:13)
[2022-03-12] MEDS: Albuterol 200 PUFF (6.7GM INHALER) INH PRN (07:04)
[2022-03-12] MEDS: Aspirin Chewable 81 MG TAB PO SCH (08:47)
[2022-03-12] MEDS: Multivit, Therapeutic 1 TAB PO SCH (08:47)
[2022-03-12] MEDS: Enoxaparin Sodium 40 MG/0.4 ML SYRINGE SC SCH (08:47)
[2022-03-12] MEDS: methylPREDNISolone Sod Succ 40 MG VIAL IVP SCH ×3 (08:47→17:16)
[2022-03-12] MEDS: Ferrous Sulfate 325 MG TAB PO SCH (08:47)
[2022-03-12] MEDS: Amiodarone 450 MG in Dextrose 5% in Water 250 ML IVPB SCH (13:48)
[2022-03-12] MEDS: Melatonin 3 MG TAB PO SCH (21:41)
[2022-03-12] MEDS: Atorvastatin Calcium 20 MG TAB PO SCH (21:41)
[2022-03-13] MEDS: methylPREDNISolone Sod Succ 40 MG VIAL IVP SCH ×5 (01:24→23:40)
[2022-03-13 07:37] LABS: Anion Gap 12 mmol/L (10-20); BUN (Urea Nitrogen) 17 mg/dL (8.4-25.7); Calc. Creatinine Clearance 89 mL/min (70-130); Calcium 8.4 mg/dL (7.8-10.44); Carbon Dioxide 26 mmol/L (23-31); Chloride 105 mmol/L (98-107); Estimated GFR 75; Glucose 174 mg/dL (83-110); Potassium 4.1 mmol/L (3.5-5.1); Sodium 139 mmol/L (136-145)
[2022-03-13 08:08] LABS: Magnesium 1.9 mg/dL (1.6-2.6); Phosphorus 3.6 mg/dL (2.3-4.7)
[2022-03-13] MEDS: Multivit, Therapeutic 1 TAB PO SCH (08:52)
[2022-03-13] MEDS: Aspirin Chewable 81 MG TAB PO SCH (08:52)
[2022-03-13] MEDS: Ferrous Sulfate 325 MG TAB PO SCH (08:52)
[2022-03-13] MEDS: Enoxaparin Sodium 40 MG/0.4 ML SYRINGE SC SCH (08:52)
[2022-03-13] MEDS: Amiodarone 450 MG in Dextrose 5% in Water 250 ML IVPB SCH (08:53)
[2022-03-13] MEDS: Ipratropium/Albuterol Sulfate 4 GM AER IH SCH ×3 (14:11→16:52)
[2022-03-13] MEDS: Mometasone 100 MCG/Formoterol 5 MCG 120 PUFF INHALER INH SCH ×2 (14:24→16:52)
[2022-03-13] MEDS: Atorvastatin Calcium 20 MG TAB PO SCH (20:26)
[2022-03-13] MEDS: Amiodarone 200 MG TAB PO SCH (20:27)
[2022-03-13] MEDS: Apixaban 5 MG TAB PO SCH (20:28)
[2022-03-13] MEDS: Melatonin 3 MG TAB PO SCH (20:28)
[2022-03-14] MEDS: methylPREDNISolone Sod Succ 40 MG VIAL IVP SCH ×4 (05:10→23:30)
[2022-03-14] MEDS: Ipratropium/Albuterol Sulfate 4 GM AER IH SCH ×5 (05:10→18:18)
[2022-03-14] MEDS: Apixaban 5 MG TAB PO SCH ×2 (09:02→20:08)
[2022-03-14] MEDS: Ferrous Sulfate 325 MG TAB PO SCH (09:02)
[2022-03-14] MEDS: Aspirin Chewable 81 MG TAB PO SCH (09:02)
[2022-03-14] MEDS: Multivit, Therapeutic 1 TAB PO SCH (09:02)
[2022-03-14] MEDS: Amiodarone 200 MG TAB PO SCH ×2 (09:03→20:08)
[2022-03-14] MEDS ORDERED: Furosemide 40 MG/4 ML VIAL ONE (10:03)
[2022-03-14] MEDS ORDERED: Furosemide 40 MG/4 ML VIAL SLOW IVP SCH ×2 (10:15→10:45)
[2022-03-14] MEDS: Mometasone 100 MCG/Formoterol 5 MCG 120 PUFF INHALER INH SCH ×2 (10:29→18:18)
[2022-03-14 10:44] LABS: Actual Bicarbonate (HCO3a) 19.5 mEq/L (22-28); Base Excess (BEa) -6.9 mEq/L (-2.0 to +3.0); CO2 Tension 42.6 mmHg (35.0-45.0); Calcium, Ionized (arterial) 1.17 mmol/L (1.12-1.30); Carboxyhemoglobin (COHb) 0.4 gm% (0.0-3.0); Hemoglobin (Hb) 14.5 g/dL (14.0-18.0); O2 Tension (PaO2), arterial 118.1 mmHg (> 70.0); Potassium - ABG Lab 4.54 mmol/L (3.70-5.30); pH, Arterial 7.28 (7.35-7.45)
[2022-03-14] MEDS ORDERED: Amiodarone 450 MG in Dextrose 5% in Water 250 ML IVPB SCH (10:45)
[2022-03-14 10:46] LABS: Puncture Site RBA
[2022-03-14] MEDS ORDERED: Midazolam HCl 2 mg/2 ml Vial ONE (11:04)
[2022-03-14] MEDS ORDERED: Midazolam HCl 2 mg/2 ml Vial SLOW IVP SCH (11:15)
[2022-03-14] MEDS: Albumin 25% 25 GM/100 ML BOT IVPB SCH ×2 (11:23→11:52)
[2022-03-14] MEDS: Metoprolol Tartrate 5 MG/5 ML VIAL IVP SCH ×2 (11:24→12:30)
[2022-03-14] MEDS ORDERED: Fentanyl CADD 100 ML ONE (11:34)
[2022-03-14] MEDS ORDERED: Propofol 1,000 MG/100 ML VIAL IV ONE (11:35)
[2022-03-14] MEDS ORDERED: Morphine 4 MG/ML VIAL SLOW IVP PRN (11:45)
[2022-03-14] MEDS ORDERED: Fentanyl BOLUS 250 ML IVPB PRN (11:45)
[2022-03-14] MEDS ORDERED: NOREPINEPHRINE 8 MG/250 ML-D5W 250 ML IVPB SCH (11:45)
[2022-03-14] MEDS ORDERED: Propofol BOLUS 1,000 MG/100 ML VIAL IV PRN (11:45)
[2022-03-14] MEDS ORDERED: Midazolam HCl 2 mg/2 ml Vial SLOW IVP PRN (11:45)
[2022-03-14 12:09] LABS: Actual Bicarbonate (HCO3a) 21.1 mEq/L (22-28); Base Excess (BEa) -7.6 mEq/L (-2.0 to +3.0); CO2 Tension 56.2 mmHg (35.0-45.0); Calcium, Ionized (arterial) 1.18 mmol/L (1.12-1.30); Carboxyhemoglobin (COHb) 0.3 gm% (0.0-3.0); Hemoglobin (Hb) 14.1 g/dL (14.0-18.0); O2 Tension (PaO2), arterial 270.4 mmHg (> 70.0); Potassium - ABG Lab 4.31 mmol/L (3.70-5.30)
[2022-03-14 12:10] LABS: Puncture Site RBA; pH, Arterial 7.19 (7.35-7.45)
[2022-03-14] MEDS ORDERED: Ventilator Sedation Protocol 1 EACH FS ONE (12:10)
[2022-03-14 13:14] LABS: Actual Bicarbonate (HCO3a) 23.4 mEq/L (22-28); Base Excess (BEa) -2.6 mEq/L (-2.0 to +3.0); CO2 Tension 45.2 mmHg (35.0-45.0); Calcium, Ionized (arterial) 1.16 mmol/L (1.12-1.30); Carboxyhemoglobin (COHb) 0.6 gm% (0.0-3.0); Hemoglobin (Hb) 13.7 g/dL (14.0-18.0); O2 Tension (PaO2), arterial 76.6 mmHg (> 70.0); Potassium - ABG Lab 4.57 mmol/L (3.70-5.30); pH, Arterial 7.33 (7.35-7.45)
[2022-03-14 13:17] LABS: Puncture Site Arterial Line
[2022-03-14] MEDS: Albuterol 200 PUFF (6.7GM INHALER) INH PRN (13:48)
[2022-03-14] MEDS: DOPamine 400 MG/D5W 250 ML 250 ML IVPB SCH ×2 (14:57→20:14)
[2022-03-14 15:26] LABS: #Lymphocytes 0.7 thou/uL (1.20-3.40); #Monocytes 1.8 thou/uL (0.11-0.59); #Neutrophils 14.3 thou/uL (1.40-6.50); %Basophils 0.2 % (0.0-1.0); %Eosinophils 0.1 % (0.0-10.0); %Monocytes 10.6 % (0.0-10.0); %Neutrophils 85.1 % (42.0-75.0); Hemoglobin 12.4 g/dL (14.0-18.0); Mean Corpuscular HGB CONC 32.8 g/dL (32.0-36.0); Mean Corpuscular Hemoglobin 31.2 pg (27.0-31.0); Mean Platelet Volume 7.9 fL (7.4-10.4); Platelet Count 274 thou/uL (130-400); RBC Distribution Width 12.6 % (11.5-14.5); Red Blood Cell (RBC) Count 3.97 mill/uL (4.70-6.10); White Blood Cell (WBC) Count 16.8 thou/uL (4.8-10.8)
[2022-03-14 15:40] LABS: Anion Gap 16 mmol/L (10-20); BUN (Urea Nitrogen) 24 mg/dL (8.4-25.7); Calc. Creatinine Clearance 71 mL/min (70-130); Carbon Dioxide 20 mmol/L (23-31); Chloride 108 mmol/L (98-107); Estimated GFR 56; Glucose 255 mg/dL (83-110); Potassium 4.1 mmol/L (3.5-5.1); Sodium 140 mmol/L (136-145)
[2022-03-14] MEDS: Atorvastatin Calcium 20 MG TAB PO SCH (20:09)
[2022-03-14] MEDS: Propofol 1,000 MG/100 ML VIAL IV PRN (20:10)
[2022-03-15] MEDS: Propofol 1,000 MG/100 ML VIAL IV PRN ×3 (01:21→17:58)
[2022-03-15 04:28] LABS: #Lymphocytes 1.1 thou/uL (1.20-3.40); #Monocytes 1.5 thou/uL (0.11-0.59); #Neutrophils 14.5 thou/uL (1.40-6.50); %Eosinophils 0.1 % (0.0-10.0); %Lymphocytes 6.4 % (21.0-51.0); %Monocytes 8.7 % (0.0-10.0); %Neutrophils 84.7 % (42.0-75.0); Mean Corpuscular HGB CONC 34.8 g/dL (32.0-36.0); Mean Corpuscular Hemoglobin 32.4 pg (27.0-31.0); Mean Corpuscular Volume 93.1 fL (78.0-98.0); Mean Platelet Volume 7.7 fL (7.4-10.4); Platelet Count 249 thou/uL (130-400); RBC Distribution Width 12.7 % (11.5-14.5); Red Blood Cell (RBC) Count 4.31 mill/uL (4.70-6.10); White Blood Cell (WBC) Count 17.1 thou/uL (4.8-10.8)
[2022-03-15 04:50] LABS: Anion Gap 18 mmol/L (10-20); BUN (Urea Nitrogen) 28 mg/dL (8.4-25.7); Calc. Creatinine Clearance 71 mL/min (70-130); Calcium 9.2 mg/dL (7.8-10.44); Carbon Dioxide 24 mmol/L (23-31); Chloride 101 mmol/L (98-107); Estimated GFR 56; Glucose 195 mg/dL (83-110); Potassium 3.8 mmol/L (3.5-5.1); Sodium 139 mmol/L (136-145)
[2022-03-15] MEDS: methylPREDNISolone Sod Succ 40 MG VIAL IVP SCH ×3 (05:14→17:58)
[2022-03-15] MEDS: Fentanyl CADD 100 ML IV SCH (05:16)
[2022-03-15] MEDS: Albuterol 200 PUFF (6.7GM INHALER) INH PRN (06:47)
[2022-03-15] MEDS: Ipratropium/Albuterol Sulfate 4 GM AER IH SCH (06:48)
[2022-03-15] MEDS: Mometasone 100 MCG/Formoterol 5 MCG 120 PUFF INHALER INH SCH ×2 (06:59→18:56)
[2022-03-15 07:24] LABS: Actual Bicarbonate (HCO3a) 23.8 mEq/L (22-28); Base Excess (BEa) 1.9 mEq/L (-2.0 to +3.0); Calcium, Ionized (arterial) 1.13 mmol/L (1.12-1.30); Carboxyhemoglobin (COHb) 0.8 gm% (0.0-3.0); Hemoglobin (Hb) 14.4 g/dL (14.0-18.0); Potassium - ABG Lab 3.74 mmol/L (3.70-5.30); pH, Arterial 7.52 (7.35-7.45)
[2022-03-15 07:28] LABS: Puncture Site Arterial Line
[2022-03-15] MEDS: Apixaban 5 MG TAB PO SCH ×2 (09:11→20:21)
[2022-03-15] MEDS: Aspirin Chewable 81 MG TAB PO SCH (09:11)
[2022-03-15] MEDS: Ferrous Sulfate 325 MG TAB PO SCH (09:11)
[2022-03-15] MEDS: Pantoprazole 40 MG VIAL IVP SCH (09:11)
[2022-03-15] MEDS: Multivit, Therapeutic 1 TAB PO SCH (09:11)
[2022-03-15] MEDS: Amiodarone 200 MG TAB PO SCH ×2 (09:12→20:22)
[2022-03-15] MEDS ORDERED: Albumin 25% 25 GM/100 ML BOT IVPB SCH (10:30)
[2022-03-15] MEDS ORDERED: Potassium Bicarbonate/Cit Ac 20 MEQ TAB PER TUBE SCH (10:30)
[2022-03-15] MEDS ORDERED: Furosemide 100 MG/10 ML VIAL SLOW IVP SCH (10:30)
[2022-03-15] MEDS: DOPamine 400 MG/D5W 250 ML 250 ML IVPB SCH (12:42)
[2022-03-15] MEDS: Atorvastatin Calcium 20 MG TAB PO SCH (20:22)
[2022-03-16] MEDS ORDERED: Fentanyl CADD 100 ML ONE (00:45)
[2022-03-16] MEDS: Fentanyl CADD 100 ML IV SCH (00:52)
[2022-03-16] MEDS: methylPREDNISolone Sod Succ 40 MG VIAL IVP SCH ×4 (00:52→16:59)
[2022-03-16] MEDS: DOPamine 400 MG/D5W 250 ML 250 ML IVPB SCH ×2 (00:52→17:12)
[2022-03-16] MEDS: Propofol 1,000 MG/100 ML VIAL IV PRN (03:10)
[2022-03-16 05:10] LABS: #Lymphocytes 0.7 thou/uL (1.20-3.40); #Monocytes 1.7 thou/uL (0.11-0.59); #Neutrophils 15.3 thou/uL (1.40-6.50); %Eosinophils 0.1 % (0.0-10.0); %Lymphocytes 3.8 % (21.0-51.0); %Monocytes 9.6 % (0.0-10.0); %Neutrophils 86.4 % (42.0-75.0); Hemoglobin 13.3 g/dL (14.0-18.0); Mean Corpuscular HGB CONC 33.4 g/dL (32.0-36.0); Mean Corpuscular Volume 92.9 fL (78.0-98.0); Mean Platelet Volume 7.5 fL (7.4-10.4); Platelet Count 240 thou/uL (130-400); RBC Distribution Width 12.6 % (11.5-14.5); Red Blood Cell (RBC) Count 4.28 mill/uL (4.70-6.10); White Blood Cell (WBC) Count 17.7 thou/uL (4.8-10.8)
[2022-03-16] MEDS: Mometasone 100 MCG/Formoterol 5 MCG 120 PUFF INHALER INH SCH ×2 (05:35→18:51)
[2022-03-16 05:55] LABS: Anion Gap 17 mmol/L (10-20); BUN (Urea Nitrogen) 30 mg/dL (8.4-25.7); Calc. Creatinine Clearance 80 mL/min (70-130); Calcium 8.7 mg/dL (7.8-10.44); Carbon Dioxide 27 mmol/L (23-31); Chloride 99 mmol/L (98-107); Estimated GFR 64; Glucose 222 mg/dL (83-110); Potassium 3.8 mmol/L (3.5-5.1); Sodium 139 mmol/L (136-145)
[2022-03-16] MEDS ORDERED: Furosemide 100 MG/10 ML VIAL SLOW IVP SCH (06:00)
[2022-03-16] MEDS ORDERED: Albumin 25% 25 GM/100 ML BOT IVPB SCH (06:00)
[2022-03-16 07:01] LABS: Actual Bicarbonate (HCO3a) 28.8 mEq/L (22-28); Base Excess (BEa) 4.7 mEq/L (-2.0 to +3.0); CO2 Tension 40.6 mmHg (35.0-45.0); Calcium, Ionized (arterial) 1.13 mmol/L (1.12-1.30); Hemoglobin (Hb) 13.7 g/dL (14.0-18.0); O2 Tension (PaO2), arterial 97.1 mmHg (> 70.0); Potassium - ABG Lab 3.73 mmol/L (3.70-5.30); pH, Arterial 7.47 (7.35-7.45)
[2022-03-16 07:09] LABS: Puncture Site Arterial Line
[2022-03-16] MEDS: Ferrous Sulfate 325 MG TAB PO SCH (08:19)
[2022-03-16] MEDS: Multivit, Therapeutic 1 TAB PO SCH (08:19)
[2022-03-16] MEDS: Apixaban 5 MG TAB PO SCH ×2 (08:19→20:35)
[2022-03-16] MEDS: Aspirin Chewable 81 MG TAB PO SCH (08:19)
[2022-03-16] MEDS: Pantoprazole 40 MG VIAL IVP SCH (08:20)
[2022-03-16] MEDS: Amiodarone 200 MG TAB PO SCH ×2 (10:24→20:36)
[2022-03-16] MEDS ORDERED: Amiodarone 200 MG TAB PO SCH (12:30)
[2022-03-16] MEDS: Ondansetron PF 4 MG/2 ML Vial IVP PRN ×3 (12:52→19:52)
[2022-03-16] MEDS: Furosemide 100 MG/10 ML VIAL SLOW IVP SCH (12:53)
[2022-03-16] MEDS: Atorvastatin Calcium 20 MG TAB PO SCH (20:36)
[2022-03-16] MEDS: Melatonin 3 MG TAB PO PRN (21:42)
[2022-03-17] MEDS: methylPREDNISolone Sod Succ 40 MG VIAL IVP SCH ×2 (00:19→05:43)
[2022-03-17] MEDS: DOPamine 400 MG/D5W 250 ML 250 ML IVPB SCH ×2 (05:43→19:35)
[2022-03-17] MEDS: Furosemide 100 MG/10 ML VIAL SLOW IVP SCH (05:43)
[2022-03-17] MEDS: Mometasone 100 MCG/Formoterol 5 MCG 120 PUFF INHALER INH SCH ×2 (07:37→19:32)
[2022-03-17 07:39] LABS: Anion Gap 18 mmol/L (10-20); BUN (Urea Nitrogen) 39 mg/dL (8.4-25.7); Calc. Creatinine Clearance 73 mL/min (70-130); Calcium 9.1 mg/dL (7.8-10.44); Carbon Dioxide 29 mmol/L (23-31); Chloride 92 mmol/L (98-107); Estimated GFR 62; Glucose 217 mg/dL (83-110); Potassium 4.1 mmol/L (3.5-5.1); Sodium 135 mmol/L (136-145)
[2022-03-17] MEDS: Apixaban 5 MG TAB PO SCH ×2 (08:29→19:36)
[2022-03-17] MEDS: Aspirin Chewable 81 MG TAB PO SCH (08:30)
[2022-03-17] MEDS: Pantoprazole 40 MG VIAL IVP SCH (08:30)
[2022-03-17] MEDS: Ferrous Sulfate 325 MG TAB PO SCH (08:30)
[2022-03-17] MEDS: Amiodarone 200 MG TAB PO SCH ×3 (08:30→19:36)
[2022-03-17] MEDS: Multivit, Therapeutic 1 TAB PO SCH (08:30)
[2022-03-17 09:06] LABS: Hemoglobin 14.8 g/dL (14.0-18.0); Lymphocytes 1 % (21-51); MDiff Complete? YES; Mean Corpuscular Hemoglobin 30.9 pg (27.0-31.0); Mean Corpuscular Volume 93.6 fL (78.0-98.0); Mean Platelet Volume 7.3 fL (7.4-10.4); Monocytes 2 % (0-10); Neutrophil 97 % (42-75); Platelet Count 280 thou/uL (130-400); Platelet Morphology Comment Appears Adequate; RBC Distribution Width 12.5 % (11.5-14.5); RBC Morphology Normal; Red Blood Cell (RBC) Count 4.78 mill/uL (4.70-6.10)
[2022-03-17] MEDS: Albuterol 200 PUFF (6.7GM INHALER) INH SCH ×2 (14:06→19:32)
[2022-03-17] MEDS: Furosemide 40 MG/4 ML VIAL SLOW IVP SCH (14:08)
[2022-03-17] MEDS ORDERED: Tamsulosin HCl 0.4 MG CAP PO SCH (17:45)
[2022-03-17] MEDS: Atorvastatin Calcium 20 MG TAB PO SCH (19:36)
[2022-03-17] MEDS: Tamsulosin HCl 0.4 MG CAP PO SCH (19:36)
[2022-03-18] MEDS: Melatonin 3 MG TAB PO PRN ×2 (00:18→21:26)
[2022-03-18] MEDS: Albuterol 200 PUFF (6.7GM INHALER) INH SCH ×4 (00:23→18:03)
[2022-03-18] MEDS: Furosemide 40 MG/4 ML VIAL SLOW IVP SCH (05:42)
[2022-03-18 07:43] LABS: Anion Gap 15 mmol/L (10-20); BUN (Urea Nitrogen) 36 mg/dL (8.4-25.7); Calc. Creatinine Clearance 81 mL/min (70-130); Calcium 8.5 mg/dL (7.8-10.44); Carbon Dioxide 34 mmol/L (23-31); Chloride 92 mmol/L (98-107); Estimated GFR 70; Glucose 128 mg/dL (83-110); Magnesium 1.9 mg/dL (1.6-2.6); Potassium 3.7 mmol/L (3.5-5.1); Sodium 137 mmol/L (136-145)
[2022-03-18 07:49] LABS: Hemoglobin 13.7 g/dL (14.0-18.0); Lymphocytes 5 % (21-51); MDiff Complete? YES; Mean Corpuscular HGB CONC 33.8 g/dL (32.0-36.0); Mean Corpuscular Hemoglobin 31.9 pg (27.0-31.0); Mean Corpuscular Volume 94.2 fL (78.0-98.0); Mean Platelet Volume 7.5 fL (7.4-10.4); Monocytes 4 % (0-10); Neutrophil 91 % (42-75); Platelet Count 217 thou/uL (130-400); Platelet Morphology Comment Appears Adequate; RBC Distribution Width 12.6 % (11.5-14.5); RBC Morphology Normal; White Blood Cell (WBC) Count 18.5 thou/uL (4.8-10.8)
[2022-03-18] MEDS: Multivit, Therapeutic 1 TAB PO SCH (10:15)
[2022-03-18] MEDS: Ferrous Sulfate 325 MG TAB PO SCH (10:15)
[2022-03-18] MEDS: Aspirin Chewable 81 MG TAB PO SCH (10:15)
[2022-03-18] MEDS: Mometasone 100 MCG/Formoterol 5 MCG 120 PUFF INHALER INH SCH ×2 (10:16→18:03)
[2022-03-18] MEDS: Apixaban 5 MG TAB PO SCH ×2 (10:16→21:26)
[2022-03-18] MEDS: Amiodarone 200 MG TAB PO SCH ×3 (10:16→21:26)
[2022-03-18] MEDS: DOPamine 400 MG/D5W 250 ML 250 ML IVPB SCH (10:17)
[2022-03-18] MEDS: Atorvastatin Calcium 20 MG TAB PO SCH (21:25)
[2022-03-18] MEDS: Tamsulosin HCl 0.4 MG CAP PO SCH (21:26)
[2022-03-19 04:37] LABS: #Eosinphils 0.2 thou/uL (0.0-0.7); #Lymphocytes 1.6 thou/uL (1.20-3.40); #Monocytes 1.7 thou/uL (0.11-0.59); #Neutrophils 10.2 thou/uL (1.40-6.50); %Basophils 0.2 % (0.0-1.0); %Eosinophils 1.3 % (0.0-10.0); %Lymphocytes 11.5 % (21.0-51.0); %Monocytes 12.7 % (0.0-10.0); %Neutrophils 74.3 % (42.0-75.0); Hemoglobin 12.4 g/dL (14.0-18.0); Mean Corpuscular Hemoglobin 32.1 pg (27.0-31.0); Mean Corpuscular Volume 94.5 fL (78.0-98.0); Mean Platelet Volume 7.3 fL (7.4-10.4); Platelet Count 193 thou/uL (130-400); RBC Distribution Width 12.4 % (11.5-14.5); Red Blood Cell (RBC) Count 3.85 mill/uL (4.70-6.10); White Blood Cell (WBC) Count 13.7 thou/uL (4.8-10.8)
[2022-03-19 04:54] LABS: Anion Gap 15 mmol/L (10-20); BUN (Urea Nitrogen) 30 mg/dL (8.4-25.7); Calc. Creatinine Clearance 95 mL/min (70-130); Calcium 8.5 mg/dL (7.8-10.44); Carbon Dioxide 33 mmol/L (23-31); Chloride 92 mmol/L (98-107); Estimated GFR 86; Glucose 111 mg/dL (83-110); Magnesium 2.1 mg/dL (1.6-2.6); Potassium 3.5 mmol/L (3.5-5.1); Sodium 136 mmol/L (136-145)
[2022-03-19] MEDS: DOPamine 400 MG/D5W 250 ML 250 ML IVPB SCH (08:30)
[2022-03-19] MEDS: Furosemide 40 MG TAB PO SCH (10:14)
[2022-03-19] MEDS: Aspirin Chewable 81 MG TAB PO SCH (10:14)
[2022-03-19] MEDS: Multivit, Therapeutic 1 TAB PO SCH (10:14)
[2022-03-19] MEDS: Ferrous Sulfate 325 MG TAB PO SCH (10:15)
[2022-03-19] MEDS: Apixaban 5 MG TAB PO SCH ×2 (10:15→20:47)
[2022-03-19] MEDS: Amiodarone 200 MG TAB PO SCH ×3 (10:16→20:47)
[2022-03-19] MEDS: Albuterol 200 PUFF (6.7GM INHALER) INH SCH ×4 (10:18→20:34)
[2022-03-19] MEDS ORDERED: Polyethylene Glycol 3350 17 GM Packet PO PRN (10:50)
[2022-03-19] MEDS: Docusate 100 MG CAP PO PRN (12:50)
[2022-03-19] MEDS: Mometasone 100 MCG/Formoterol 5 MCG 120 PUFF INHALER INH SCH (15:48)
[2022-03-19] MEDS: Tamsulosin HCl 0.4 MG CAP PO SCH (20:47)
[2022-03-19] MEDS: Atorvastatin Calcium 20 MG TAB PO SCH (20:47)
[2022-03-19] MEDS: Melatonin 3 MG TAB PO PRN (20:48)
[2022-03-20] MEDS: Albuterol 200 PUFF (6.7GM INHALER) INH SCH ×5 (01:31→23:41)
[2022-03-20] MEDS: Furosemide 40 MG TAB PO SCH (08:08)
[2022-03-20] MEDS: Ferrous Sulfate 325 MG TAB PO SCH (08:08)
[2022-03-20] MEDS: Aspirin Chewable 81 MG TAB PO SCH (08:09)
[2022-03-20] MEDS: Apixaban 5 MG TAB PO SCH (08:09)
[2022-03-20] MEDS: Amiodarone 200 MG TAB PO SCH ×3 (08:09→20:21)
[2022-03-20] MEDS: Multivit, Therapeutic 1 TAB PO SCH (08:09)
[2022-03-20 08:47] LABS: #Eosinphils 0.3 thou/uL (0.0-0.7); #Lymphocytes 1.4 thou/uL (1.20-3.40); #Monocytes 1.8 thou/uL (0.11-0.59); #Neutrophils 14.4 thou/uL (1.40-6.50); %Basophils 0.1 % (0.0-1.0); %Eosinophils 1.4 % (0.0-10.0); %Lymphocytes 7.9 % (21.0-51.0); %Monocytes 10.3 % (0.0-10.0); %Neutrophils 80.3 % (42.0-75.0); Mean Corpuscular HGB CONC 33.4 g/dL (32.0-36.0); Mean Corpuscular Hemoglobin 31.4 pg (27.0-31.0); Mean Corpuscular Volume 94.1 fL (78.0-98.0); Mean Platelet Volume 7.1 fL (7.4-10.4); Platelet Count 203 thou/uL (130-400); RBC Distribution Width 12.3 % (11.5-14.5); Red Blood Cell (RBC) Count 3.81 mill/uL (4.70-6.10); White Blood Cell (WBC) Count 17.9 thou/uL (4.8-10.8)
[2022-03-20 09:05] LABS: Anion Gap 13 mmol/L (10-20); BUN (Urea Nitrogen) 18 mg/dL (8.4-25.7); Calc. Creatinine Clearance 113 mL/min (70-130); Carbon Dioxide 33 mmol/L (23-31); Chloride 94 mmol/L (98-107); Estimated GFR 94; Glucose 111 mg/dL (83-110); Potassium 3.6 mmol/L (3.5-5.1); Sodium 136 mmol/L (136-145)
[2022-03-20] MEDS: Mometasone 100 MCG/Formoterol 5 MCG 120 PUFF INHALER INH SCH ×3 (14:10→23:41)
[2022-03-20] MEDS: Melatonin 3 MG TAB PO PRN (20:21)
[2022-03-20] MEDS: Enoxaparin Sodium 100 MG/ML SYRINGE SC SCH (20:22)
[2022-03-20] MEDS: Atorvastatin Calcium 20 MG TAB PO SCH (20:22)
[2022-03-20] MEDS: Tamsulosin HCl 0.4 MG CAP PO SCH (20:22)
[2022-03-20] MEDS: Docusate 100 MG CAP PO PRN (20:22)
[2022-03-21 04:55] LABS: #Eosinphils 0.5 thou/uL (0.0-0.7); #Lymphocytes 1.6 thou/uL (1.20-3.40); #Monocytes 1.8 thou/uL (0.11-0.59); #Neutrophils 13.2 thou/uL (1.40-6.50); %Basophils 0.1 % (0.0-1.0); %Eosinophils 3.1 % (0.0-10.0); %Lymphocytes 9.2 % (21.0-51.0); %Monocytes 10.6 % (0.0-10.0); %Neutrophils 76.9 % (42.0-75.0); Hemoglobin 12.7 g/dL (14.0-18.0); Mean Corpuscular HGB CONC 33.7 g/dL (32.0-36.0); Mean Corpuscular Hemoglobin 31.7 pg (27.0-31.0); Mean Platelet Volume 7.2 fL (7.4-10.4); Platelet Count 239 thou/uL (130-400); RBC Distribution Width 12.3 % (11.5-14.5); Red Blood Cell (RBC) Count 4.02 mill/uL (4.70-6.10); White Blood Cell (WBC) Count 17.2 thou/uL (4.8-10.8)
[2022-03-21] MEDS: Albuterol 200 PUFF (6.7GM INHALER) INH SCH ×3 (05:41→18:42)
[2022-03-21] MEDS: Mometasone 100 MCG/Formoterol 5 MCG 120 PUFF INHALER INH SCH ×2 (05:41→18:41)
[2022-03-21] MEDS: Multivit, Therapeutic 1 TAB PO SCH (08:04)
[2022-03-21] MEDS: Amiodarone 200 MG TAB PO SCH ×3 (08:04→20:23)
[2022-03-21] MEDS: Ferrous Sulfate 325 MG TAB PO SCH (08:04)
[2022-03-21] MEDS: Furosemide 40 MG TAB PO SCH (08:04)
[2022-03-21] MEDS: Aspirin Chewable 81 MG TAB PO SCH (08:04)
[2022-03-21] MEDS ORDERED: Amiodarone 200 MG TAB PO SCH (09:00)
[2022-03-21] MEDS: Enoxaparin Sodium 100 MG/ML SYRINGE SC SCH ×2 (09:50→20:24)
[2022-03-21] MEDS ORDERED: Communication Order-Pharmacy FS SCH (12:30)
[2022-03-21] MEDS: Docusate 100 MG CAP PO PRN (15:35)
[2022-03-21] MEDS: Tamsulosin HCl 0.4 MG CAP PO SCH (20:23)
[2022-03-21] MEDS: Atorvastatin Calcium 20 MG TAB PO SCH (20:23)
[2022-03-21] MEDS: Melatonin 3 MG TAB PO PRN (20:29)
[2022-03-22] MEDS: Albuterol 200 PUFF (6.7GM INHALER) INH SCH ×4 (00:16→19:27)
[2022-03-22 04:37] LABS: #Basophils 0.1 thou/uL (0.0-0.2); #Eosinphils 0.5 thou/uL (0.0-0.7); #Lymphocytes 1.5 thou/uL (1.20-3.40); %Basophils 0.3 % (0.0-1.0); %Eosinophils 2.6 % (0.0-10.0); %Lymphocytes 7.9 % (21.0-51.0); %Monocytes 10.4 % (0.0-10.0); %Neutrophils 78.7 % (42.0-75.0); Hemoglobin 12.1 g/dL (14.0-18.0); Mean Corpuscular HGB CONC 33.6 g/dL (32.0-36.0); Mean Corpuscular Hemoglobin 31.9 pg (27.0-31.0); Mean Corpuscular Volume 94.8 fL (78.0-98.0); Mean Platelet Volume 7.1 fL (7.4-10.4); Platelet Count 240 thou/uL (130-400); RBC Distribution Width 12.1 % (11.5-14.5)
[2022-03-22 04:55] LABS: Anion Gap 16 mmol/L (10-20); BUN (Urea Nitrogen) 16 mg/dL (8.4-25.7); Calc. Creatinine Clearance 107 mL/min (70-130); Calcium 8.3 mg/dL (7.8-10.44); Carbon Dioxide 27 mmol/L (23-31); Chloride 96 mmol/L (98-107); Estimated GFR 93; Glucose 101 mg/dL (83-110); Magnesium 1.9 mg/dL (1.6-2.6); Potassium 3.6 mmol/L (3.5-5.1); Sodium 135 mmol/L (136-145)
[2022-03-22] MEDS ORDERED: Sodium Chloride 0.9% 1,000 ML IV SCH (06:00)
[2022-03-22] MEDS: Mometasone 100 MCG/Formoterol 5 MCG 120 PUFF INHALER INH SCH ×2 (06:27→19:27)
[2022-03-22] MEDS ORDERED: Midazolam HCl 2 mg/2 ml Vial ONE (06:41)
[2022-03-22] MEDS ORDERED: Fentanyl 100 MCG/2 ML VIAL ONE (06:41)
[2022-03-22] MEDS ORDERED: Heparin 10,000 UNITS/ 10 ML VIAL ONE (06:42)
[2022-03-22] MEDS ORDERED: Nitroglycerin 100MG/250ML BOT 250 ML ONE (06:42)
[2022-03-22] MEDS ORDERED: Verapamil 5 MG/2 ML VIAL ONE (06:42)
[2022-03-22] MEDS ORDERED: Lidocaine 1% PF 5 ML VIAL ONE (06:49)
[2022-03-22] MEDS ORDERED: Nitroglycerin 0.4 MG TAB (25 Tab Bottle) SL PRN (07:59)
[2022-03-22] MEDS ORDERED: Acetaminophen/Codeine 30-300mg Tablet PO PRN (07:59)
[2022-03-22] MEDS ORDERED: Sodium Chloride 0.9% 250 ML 200 ML IV PRN (08:10)
[2022-03-22] MEDS ORDERED: Sodium Chloride 0.9% 250 ML IV SCH (08:15)
[2022-03-22] MEDS: Ferrous Sulfate 325 MG TAB PO SCH ×2 (08:15→08:20)
[2022-03-22] MEDS: Aspirin Chewable 81 MG TAB PO SCH ×2 (08:19→08:20)
[2022-03-22] MEDS: Furosemide 40 MG TAB PO SCH (08:20)
[2022-03-22] MEDS: Amiodarone 200 MG TAB PO SCH ×3 (08:30→20:46)
[2022-03-22] MEDS: Multivit, Therapeutic 1 TAB PO SCH (08:30)
[2022-03-22] MEDS ORDERED: Iopamidol 370 76% 100 ML VIAL ONE (09:55)
[2022-03-22] MEDS ORDERED: traZODone HCl 50 MG TAB PO PRN (13:42)
[2022-03-22] MEDS ORDERED: Communication Order-Pharmacy FS SCH (17:18)
[2022-03-22] MEDS: Bisacodyl 10 MG SUPP PR SCH (18:38)
[2022-03-22] MEDS ORDERED: GoLYTELY 4,000 ml Bottle PO SCH (18:45)
[2022-03-22] MEDS: Tamsulosin HCl 0.4 MG CAP PO SCH (20:46)
[2022-03-22] MEDS: Atorvastatin Calcium 20 MG TAB PO SCH (20:46)
[2022-03-22] MEDS: Melatonin 3 MG TAB PO PRN (20:50)
[2022-03-23] MEDS: Albuterol 200 PUFF (6.7GM INHALER) INH SCH ×2 (01:45→07:19)
[2022-03-23] MEDS: Bisacodyl 10 MG SUPP PR SCH (02:19)
[2022-03-23 04:32] LABS: #Eosinphils 0.3 thou/uL (0.0-0.7); #Lymphocytes 1.3 thou/uL (1.20-3.40); #Monocytes 1.8 thou/uL (0.11-0.59); #Neutrophils 16.1 thou/uL (1.40-6.50); %Eosinophils 1.3 % (0.0-10.0); %Lymphocytes 6.7 % (21.0-51.0); %Neutrophils 82.9 % (42.0-75.0); Hemoglobin 11.4 g/dL (14.0-18.0); Mean Corpuscular HGB CONC 33.5 g/dL (32.0-36.0); Mean Corpuscular Hemoglobin 31.5 pg (27.0-31.0); Mean Corpuscular Volume 94.2 fL (78.0-98.0); Mean Platelet Volume 6.5 fL (7.4-10.4); Platelet Count 238 thou/uL (130-400); RBC Distribution Width 12.2 % (11.5-14.5); Red Blood Cell (RBC) Count 3.61 mill/uL (4.70-6.10); White Blood Cell (WBC) Count 19.4 thou/uL (4.8-10.8)
[2022-03-23] MEDS: Mometasone 100 MCG/Formoterol 5 MCG 120 PUFF INHALER INH SCH (07:18)
[2022-03-23] MEDS ORDERED: fentaNYL Citrate/PF 100 MCG/2 ML SYRINGE ONE (07:59)
[2022-03-23] MEDS ORDERED: Midazolam HCl 5 mg/5 ml Vial ONE (07:59)
[2022-03-23] MEDS ORDERED: niCARdipine 25 MG/10 ML VIAL ONE (08:00)
[2022-03-23] MEDS ORDERED: Norepinephrine 4 MG/4 ML VIAL ONE (08:00)
[2022-03-23] MEDS ORDERED: Rocuronium Bromide 50 MG/5 ML VIAL ONE (08:00)
[2022-03-23] MEDS ORDERED: Insulin Regular 300 UNITS/3 ML VIAL ONE (08:00)
[2022-03-23] MEDS ORDERED: SUGAMMADEX SODIUM 200 MG/2 ML VIAL ONE (08:00)
[2022-03-23] MEDS: Furosemide 40 MG TAB PO SCH (08:55)
[2022-03-23] MEDS ORDERED: PHENYLEPHRINE-NS 100 MCG/ML 10 ML SYRINGE ONE ×2 (10:28→15:35)
[2022-03-23] MEDS ORDERED: Albumin 5% 500 ML ONE ×2 (10:28→16:30)
[2022-03-23] MEDS ORDERED: EPINEPHrine 1 MG/ML AMP ONE ×2 (13:02→13:38)
[2022-03-23] MEDS ORDERED: Rocuronium Bromide 10 MG/ML (10ML VIAL) ONE (13:38)
[2022-03-23] MEDS ORDERED: Thrombin 5000 UNITS/5 ML VIAL ONE (13:38)
[2022-03-23] MEDS ORDERED: Heparin 5,000 UNITS/ML VIAL ONE (13:38)
[2022-03-23] MEDS ORDERED: Heparin 30,000 units/30 ml VIAL ONE (13:38)
[2022-03-23] MEDS ORDERED: Mannitol 12.5 GM/50 ML ONE (13:38)
[2022-03-23] MEDS ORDERED: Papaverine 60 MG/2 ML VIAL ONE (13:38)
[2022-03-23] MEDS ORDERED: Magnesium Sulfate 1 GM/2 ML VIAL ONE (13:38)
[2022-03-23] MEDS ORDERED: Sodium Bicarb 50 MEQ/50 ML Abboject 8.4% SYRINGE ONE (13:38)
[2022-03-23] MEDS ORDERED: Lidocaine 2% PF 100 mg/5 ml Syringe ONE (13:38)
[2022-03-23] MEDS ORDERED: Cardioplegic Soln 1,000 ML BAG ONE (13:38)
[2022-03-23] MEDS ORDERED: Nitroglycerin 50 MG/250 ML BOT ONE (13:38)
[2022-03-23] MEDS ORDERED: Lidocaine 1% MPF 2 ML VIAL ONE (13:38)
[2022-03-23] MEDS ORDERED: Calcium Chloride 1 GM/10 ML Abboject SYRINGE ONE (13:38)
[2022-03-23] MEDS ORDERED: Aminocaproic Acid 5 GM/20 ML VIAL ONE (13:38)
[2022-03-23] MEDS ORDERED: PROPOFOL 200 MG/20 ML VIAL ONE (13:38)
[2022-03-23] MEDS ORDERED: Milrinone 10 MG/10 ML VIAL ONE ×2 (15:18→15:26)
[2022-03-23] MEDS ORDERED: Dexmedetomidine 200 MCG/2 ML VIAL ONE (15:42)
[2022-03-23] MEDS ORDERED: niCARdipine 25 MG in Sodium Chloride 0.9% 250 ML 250 ML IVPB PRN (17:29)
[2022-03-23] MEDS ORDERED: Bisacodyl 10 MG SUPP PR PRN (17:29)
[2022-03-23] MEDS ORDERED: Hetastarch 6% 500 ML 500 ML IVPB PRN (17:29)
[2022-03-23] MEDS ORDERED: Acetaminophen 325 MG TAB PO PRN (17:29)
[2022-03-23] MEDS ORDERED: Fentanyl 100 MCG/2 ML VIAL SLOW IVP PRN (17:29)
[2022-03-23] MEDS ORDERED: Mag-Al 1200 mg/1200 mg/30 ML UDCUP PO PRN (17:29)
[2022-03-23] MEDS ORDERED: Ondansetron PF 4 MG/2 ML Vial IVP PRN (17:29)
[2022-03-23] MEDS ORDERED: Guaifenesin DM 100-10/5 ML UDCUP PO PRN (17:29)
[2022-03-23] MEDS ORDERED: Morphine 2 MG/ML VIAL SLOW IVP PRN (17:29)
[2022-03-23] MEDS ORDERED: Post-Op Insulin Drip Protocol IVPB ONE (17:29)
[2022-03-23] MEDS ORDERED: NOREPINEPHRINE 8 MG/250 ML-D5W 250 ML IVPB PRN (17:29)
[2022-03-23] MEDS ORDERED: HUMULIN R 100 UNITS in Sodium Chloride 0.9% 100 ML IVPB SCH ×2 (18:15→18:30)
[2022-03-23 18:22] LABS: INR-International Normal Ratio 1.7; PTT 35.8 sec (22.9-36.1); Prothrombin Time 20.2 sec (12.0-14.7)
[2022-03-23 18:25] LABS: Hemoglobin 9.7 g/dL (14.0-18.0); Mean Corpuscular Hemoglobin 31.4 pg (27.0-31.0); Mean Corpuscular Volume 95.4 fL (78.0-98.0); Mean Platelet Volume 6.6 fL (7.4-10.4); Platelet Count 184 thou/uL (130-400); Red Blood Cell (RBC) Count 3.08 mill/uL (4.70-6.10); White Blood Cell (WBC) Count 44.7 thou/uL (4.8-10.8)
[2022-03-23 18:28] LABS: Anion Gap 14 mmol/L (10-20); BUN (Urea Nitrogen) 13 mg/dL (8.4-25.7); Calc. Creatinine Clearance 103 mL/min (70-130); Calcium 9.3 mg/dL (7.8-10.44); Carbon Dioxide 25 mmol/L (23-31); Chloride 103 mmol/L (98-107); Estimated GFR 92; Glucose 160 mg/dL (83-110); Potassium 3.7 mmol/L (3.5-5.1); Sodium 138 mmol/L (136-145)
[2022-03-23] MEDS ORDERED: Dextrose 50% Abboject 50 ML SYRINGE SLOW IVP PRN (18:30)
[2022-03-23] MEDS ORDERED: Dextrose 5% in Water 1,000 ML IV PRN (18:30)
[2022-03-23 18:32] LABS: Band 5 % (5-11); Lymphocytes 3 % (21-51); MDiff Complete? YES; Monocytes 6 % (0-10); Neutrophil 85 % (42-75); Ovalocytes SLIGHT = 2-5 cells (100X) (0-1/hpf); Platelet Morphology Comment Appears Adequate; Polychromasia SLIGHT = 2-3 cells (100X) (0-2/hpf); Reactive Lymphocytes 1 % (0-10); Small Platelets SLIGHT; Toxic Granulation SLIGHT
[2022-03-23] MEDS: CEFAZOLIN 2 GM in Sodium Chloride 0.9% 100 ML IVPB SCH (18:39)
[2022-03-23] MEDS: Lactated Ringer's 1,000 ML IV SCH (18:40)
[2022-03-23] MEDS: Insulin Regular 300 UNITS/3 ML VIAL SC PRN ×2 (18:40→23:28)
[2022-03-23] MEDS: Potassium Chloride 20 MEQ/100 ML PREMIX BAG IVPB PRN (18:49)
[2022-03-23 19:43] LABS: Actual Bicarbonate (HCO3a) 24.8 mEq/L (22-28); CO2 Tension 51.5 mmHg (35.0-45.0); Calcium, Ionized (arterial) 1.18 mmol/L (1.12-1.30); Carboxyhemoglobin (COHb) 1.1 gm% (0.0-3.0); O2 Tension (PaO2), arterial 74.9 mmHg (> 70.0); Potassium - ABG Lab 4.09 mmol/L (3.70-5.30)
[2022-03-23 19:46] LABS: Puncture Site Arterial Line
[2022-03-23 19:47] LABS: ALV-art Gradient 145.925 mmHg (0-20)
[2022-03-23] MEDS: Famotidine/PF 20 mg/2ml Vial SLOW IVP SCH (21:15)
[2022-03-23 23:15] LABS: Hemoglobin 9.7 g/dL (14.0-18.0)
[2022-03-23 23:28] LABS: Actual Bicarbonate (HCO3a) 23.1 mEq/L (22-28); Base Excess (BEa) -0.6 mEq/L (-2.0 to +3.0); CO2 Tension 34.5 mmHg (35.0-45.0); Calcium, Ionized (arterial) 1.13 mmol/L (1.12-1.30); Carboxyhemoglobin (COHb) 1.1 gm% (0.0-3.0); Hemoglobin (Hb) 10.3 g/dL (14.0-18.0); O2 Tension (PaO2), arterial 85.1 mmHg (> 70.0); Potassium - ABG Lab 4.52 mmol/L (3.70-5.30); pH, Arterial 7.44 (7.35-7.45)
[2022-03-23 23:32] LABS: Potassium 4.6 mmol/L (3.5-5.1)
[2022-03-23 23:36] LABS: ALV-art Gradient 156.975 mmHg (0-20); Puncture Site Arterial Line
[2022-03-24] MEDS: Fentanyl 100 MCG/2 ML VIAL SLOW IVP PRN ×2 (00:31→04:12)
[2022-03-24] MEDS: Insulin Regular 300 UNITS/3 ML VIAL SC PRN (02:49)
[2022-03-24] MEDS: HYDROcodone/Acetaminophen 5/325 mg Tablet PO PRN ×4 (02:50→20:36)
[2022-03-24] MEDS: Lactated Ringer's 1,000 ML IV SCH ×2 (04:12→14:01)
[2022-03-24 04:31] LABS: Anion Gap 13 mmol/L (10-20); BUN (Urea Nitrogen) 16 mg/dL (8.4-25.7); Calc. Creatinine Clearance 112 mL/min (70-130); Calcium 8.4 mg/dL (7.8-10.44); Carbon Dioxide 26 mmol/L (23-31); Chloride 104 mmol/L (98-107); Estimated GFR 94; Glucose 119 mg/dL (83-110); Potassium 4.6 mmol/L (3.5-5.1); Sodium 138 mmol/L (136-145)
[2022-03-24] MEDS: CEFAZOLIN 2 GM in Sodium Chloride 0.9% 100 ML IVPB SCH ×2 (05:33→14:02)
[2022-03-24 05:46] LABS: Band 19 % (5-11); Lymphocytes 5 % (21-51); MDiff Complete? YES; Mean Corpuscular HGB CONC 34.3 g/dL (32.0-36.0); Mean Corpuscular Hemoglobin 32.5 pg (27.0-31.0); Mean Corpuscular Volume 94.6 fL (78.0-98.0); Mean Platelet Volume 6.5 fL (7.4-10.4); Monocytes 3 % (0-10); Neutrophil 73 % (42-75); Platelet Count 155 thou/uL (130-400); RBC Distribution Width 12.2 % (11.5-14.5); Red Blood Cell (RBC) Count 2.77 mill/uL (4.70-6.10); White Blood Cell (WBC) Count 23.7 thou/uL (4.8-10.8)
[2022-03-24] MEDS: Aspirin 325 MG TAB PO SCH (08:26)
[2022-03-24] MEDS: Famotidine/PF 20 mg/2ml Vial SLOW IVP SCH (08:26)
[2022-03-24] MEDS: Magnesium 2 GM/50 ML(in water) 2 GM in Premix Bag 1 BAG IVPB SCH (08:26)
[2022-03-24] MEDS: Polyethylene Glycol 3350 17 GM Packet PO SCH (08:26)
[2022-03-24 09:15] LABS: Glucose 98 mg/dL (83-110)
[2022-03-24 17:28] LABS: Glucose 150 mg/dL (83-110)
[2022-03-25] MEDS: Lactated Ringer's 1,000 ML IV SCH ×2 (00:29→08:42)
[2022-03-25] MEDS: HYDROcodone/Acetaminophen 5/325 mg Tablet PO PRN ×2 (03:14→21:51)
[2022-03-25 04:00] LABS: #Eosinphils 0.1 thou/uL (0.0-0.7); #Lymphocytes 1.1 thou/uL (1.20-3.40); #Monocytes 2.3 thou/uL (0.11-0.59); #Neutrophils 19.6 thou/uL (1.40-6.50); %Basophils 0.1 % (0.0-1.0); %Eosinophils 0.3 % (0.0-10.0); %Lymphocytes 4.7 % (21.0-51.0); %Monocytes 9.8 % (0.0-10.0); %Neutrophils 85.1 % (42.0-75.0); Hemoglobin 7.9 g/dL (14.0-18.0); Mean Corpuscular HGB CONC 33.5 g/dL (32.0-36.0); Mean Corpuscular Hemoglobin 32.3 pg (27.0-31.0); Mean Corpuscular Volume 96.2 fL (78.0-98.0); Mean Platelet Volume 6.6 fL (7.4-10.4); Platelet Count 161 thou/uL (130-400); RBC Distribution Width 12.3 % (11.5-14.5); Red Blood Cell (RBC) Count 2.45 mill/uL (4.70-6.10)
[2022-03-25 04:19] LABS: Anion Gap 10 mmol/L (10-20); BUN (Urea Nitrogen) 15 mg/dL (8.4-25.7); Calc. Creatinine Clearance 118 mL/min (70-130); Carbon Dioxide 26 mmol/L (23-31); Chloride 103 mmol/L (98-107); Estimated GFR 95; Glucose 148 mg/dL (83-110); Potassium 4.4 mmol/L (3.5-5.1); Sodium 135 mmol/L (136-145)
[2022-03-25] MEDS: Aspirin 325 MG TAB PO SCH (08:41)
[2022-03-25] MEDS: Magnesium 2 GM/50 ML(in water) 2 GM in Premix Bag 1 BAG IVPB SCH (08:41)
[2022-03-25] MEDS: Polyethylene Glycol 3350 17 GM Packet PO SCH (08:42)
[2022-03-25] MEDS ORDERED: Furosemide 20 MG TAB PO SCH ×2 (09:15→14:00)
[2022-03-25] MEDS ORDERED: Furosemide 40 MG TAB PO SCH (09:15)
[2022-03-25] MEDS ORDERED: Metoprolol Tartrate 5 MG/5 ML VIAL IVP SCH (09:42)
[2022-03-25] MEDS ORDERED: Metoprolol Tartrate 5 MG/5 ML VIAL ONE (09:45)
[2022-03-25] MEDS: Amiodarone 450 MG in Dextrose 5% in Water 250 ML IVPB SCH ×2 (09:50→16:48)
[2022-03-25] MEDS ORDERED: Sodium Chloride 0.9% 500 ML IV SCH (10:45)
[2022-03-25] MEDS: Furosemide 40 MG TAB PO SCH (13:04)
[2022-03-25] MEDS ORDERED: Furosemide 40 MG/4 ML VIAL SLOW IVP SCH (16:00)
[2022-03-25] MEDS: Potassium Chloride 10 MEQ TAB PO SCH (16:05)
[2022-03-25] MEDS: ALPRAZolam 0.5 MG TAB PO PRN (16:05)
[2022-03-25] MEDS: Atorvastatin Calcium 40 MG TAB PO SCH (20:22)
[2022-03-26 05:08] LABS: #Eosinphils 0.2 thou/uL (0.0-0.7); #Lymphocytes 1.6 thou/uL (1.20-3.40); #Monocytes 2.2 thou/uL (0.11-0.59); #Neutrophils 21.9 thou/uL (1.40-6.50); %Basophils 0.1 % (0.0-1.0); %Eosinophils 0.7 % (0.0-10.0); %Monocytes 8.6 % (0.0-10.0); %Neutrophils 84.6 % (42.0-75.0); Hemoglobin 7.8 g/dL (14.0-18.0); Mean Corpuscular HGB CONC 33.3 g/dL (32.0-36.0); Mean Corpuscular Volume 96.2 fL (78.0-98.0); Mean Platelet Volume 6.8 fL (7.4-10.4); Platelet Count 196 thou/uL (130-400); RBC Distribution Width 12.5 % (11.5-14.5); Red Blood Cell (RBC) Count 2.44 mill/uL (4.70-6.10); White Blood Cell (WBC) Count 25.9 thou/uL (4.8-10.8)
[2022-03-26 05:32] LABS: Anion Gap 13 mmol/L (10-20); BUN (Urea Nitrogen) 17 mg/dL (8.4-25.7); Calc. Creatinine Clearance 113 mL/min (70-130); Calcium 8.1 mg/dL (7.8-10.44); Carbon Dioxide 26 mmol/L (23-31); Chloride 101 mmol/L (98-107); Estimated GFR 93; Glucose 119 mg/dL (83-110); Potassium 3.7 mmol/L (3.5-5.1); Sodium 136 mmol/L (136-145)
[2022-03-26] MEDS: Potassium Chloride 10 MEQ TAB PO SCH ×2 (07:17→16:35)
[2022-03-26] MEDS: ALPRAZolam 0.5 MG TAB PO PRN ×3 (07:18→21:23)
[2022-03-26] MEDS: Potassium Chloride 20 MEQ/100 ML PREMIX BAG IVPB PRN (07:18)
[2022-03-26] MEDS: Furosemide 40 MG TAB PO SCH ×2 (07:19→13:30)
[2022-03-26] MEDS: Aspirin 325 MG TAB PO SCH (07:55)
[2022-03-26] MEDS: Polyethylene Glycol 3350 17 GM Packet PO SCH (07:55)
[2022-03-26] MEDS: Amiodarone 450 MG in Dextrose 5% in Water 250 ML IVPB SCH ×2 (07:56→23:15)
[2022-03-26] MEDS ORDERED: Digoxin 0.5 MG/2 ML AMP SLOW IVP SCH ×5 (09:15→20:00)
[2022-03-26] MEDS: DOBUTamine 500 mg/250 ml 500 MG in Premix Bag 1 BAG IVPB SCH (09:31)
[2022-03-26 15:16] LABS: Hemoglobin 9.1 g/dL (14.0-18.0)
[2022-03-26] MEDS: Atorvastatin Calcium 40 MG TAB PO SCH (20:34)
[2022-03-26] MEDS: HYDROcodone/Acetaminophen 5/325 mg Tablet PO PRN (23:01)
[2022-03-27] MEDS: DOBUTamine 500 mg/250 ml 500 MG in Premix Bag 1 BAG IVPB SCH ×2 (00:16→19:19)
[2022-03-27 04:37] LABS: #Eosinphils 0.4 thou/uL (0.0-0.7); #Lymphocytes 1.6 thou/uL (1.20-3.40); #Monocytes 1.8 thou/uL (0.11-0.59); #Neutrophils 18.8 thou/uL (1.40-6.50); %Basophils 0.1 % (0.0-1.0); %Eosinophils 1.6 % (0.0-10.0); %Neutrophils 83.3 % (42.0-75.0); Hemoglobin 8.9 g/dL (14.0-18.0); Mean Corpuscular Hemoglobin 31.5 pg (27.0-31.0); Mean Corpuscular Volume 95.5 fL (78.0-98.0); Mean Platelet Volume 6.5 fL (7.4-10.4); Platelet Count 217 thou/uL (130-400); RBC Distribution Width 13.2 % (11.5-14.5); Red Blood Cell (RBC) Count 2.82 mill/uL (4.70-6.10); White Blood Cell (WBC) Count 22.6 thou/uL (4.8-10.8)
[2022-03-27 04:52] LABS: Anion Gap 13 mmol/L (10-20); BUN (Urea Nitrogen) 18 mg/dL (8.4-25.7); Calc. Creatinine Clearance 105 mL/min (70-130); Carbon Dioxide 27 mmol/L (23-31); Chloride 99 mmol/L (98-107); Estimated GFR 91; Glucose 134 mg/dL (83-110); Potassium 3.9 mmol/L (3.5-5.1); Sodium 135 mmol/L (136-145)
[2022-03-27] MEDS: HYDROcodone/Acetaminophen 5/325 mg Tablet PO PRN (05:30)
[2022-03-27] MEDS: ALPRAZolam 0.5 MG TAB PO PRN ×2 (05:32→20:50)
[2022-03-27] MEDS: Furosemide 40 MG TAB PO SCH ×2 (09:34→14:39)
[2022-03-27] MEDS: Potassium Chloride 10 MEQ TAB PO SCH ×2 (09:34→17:01)
[2022-03-27] MEDS: Polyethylene Glycol 3350 17 GM Packet PO SCH (09:34)
[2022-03-27] MEDS: Aspirin 325 MG TAB PO SCH (09:34)
[2022-03-27] MEDS: Digoxin 0.5 MG/2 ML AMP SLOW IVP SCH (09:34)
[2022-03-27] MEDS: Bisacodyl 5 MG TAB PO PRN (14:39)
[2022-03-27] MEDS: Amiodarone 450 MG in Dextrose 5% in Water 250 ML IVPB SCH (15:07)
[2022-03-27] MEDS: traMADol HCl 50 MG TAB PO PRN (20:50)
[2022-03-27] MEDS: Atorvastatin Calcium 40 MG TAB PO SCH (20:52)
[2022-03-28 04:24] LABS: #Eosinphils 0.5 thou/uL (0.0-0.7); #Lymphocytes 1.3 thou/uL (1.20-3.40); #Monocytes 1.6 thou/uL (0.11-0.59); #Neutrophils 14.6 thou/uL (1.40-6.50); %Basophils 0.1 % (0.0-1.0); %Lymphocytes 7.3 % (21.0-51.0); %Monocytes 8.6 % (0.0-10.0); %Neutrophils 80.9 % (42.0-75.0); Hemoglobin 8.6 g/dL (14.0-18.0); Mean Corpuscular HGB CONC 32.7 g/dL (32.0-36.0); Mean Corpuscular Hemoglobin 31.6 pg (27.0-31.0); Mean Corpuscular Volume 96.6 fL (78.0-98.0); Mean Platelet Volume 6.3 fL (7.4-10.4); Platelet Count 247 thou/uL (130-400); RBC Distribution Width 13.4 % (11.5-14.5); Red Blood Cell (RBC) Count 2.71 mill/uL (4.70-6.10); White Blood Cell (WBC) Count 18.1 thou/uL (4.8-10.8)
[2022-03-28 04:42] LABS: Anion Gap 12 mmol/L (10-20); BUN (Urea Nitrogen) 16 mg/dL (8.4-25.7); Calc. Creatinine Clearance 121 mL/min (70-130); Calcium 7.8 mg/dL (7.8-10.44); Carbon Dioxide 29 mmol/L (23-31); Chloride 99 mmol/L (98-107); Estimated GFR 95; Glucose 87 mg/dL (83-110); Potassium 3.8 mmol/L (3.5-5.1); Sodium 136 mmol/L (136-145)
[2022-03-28] MEDS: Amiodarone 450 MG in Dextrose 5% in Water 250 ML IVPB SCH ×2 (06:10→21:54)
[2022-03-28] MEDS: Furosemide 40 MG TAB PO SCH (07:49)
[2022-03-28] MEDS: Digoxin 0.5 MG/2 ML AMP SLOW IVP SCH (07:50)
[2022-03-28] MEDS: Polyethylene Glycol 3350 17 GM Packet PO SCH (07:50)
[2022-03-28] MEDS: Potassium Chloride 10 MEQ TAB PO SCH (07:50)
[2022-03-28] MEDS: Bisacodyl 5 MG TAB PO PRN (08:01)
[2022-03-28] MEDS: traMADol HCl 50 MG TAB PO PRN (08:01)
[2022-03-28] MEDS: Aspirin 325 MG TAB PO SCH (08:07)
[2022-03-28] MEDS ORDERED: Nitroglycerin 0.4 MG TAB (25 Tab Bottle) SL PRN (13:01)
[2022-03-28] MEDS ORDERED: Furosemide 40 MG TAB PO SCH (13:15)
[2022-03-28] MEDS ORDERED: Potassium Chloride 10 MEQ TAB PO SCH (13:15)
[2022-03-28] MEDS: Amiodarone 200 MG TAB PO SCH ×2 (15:06→20:22)
[2022-03-28] MEDS: Tamsulosin HCl 0.4 MG CAP PO SCH (20:22)
[2022-03-28] MEDS: Atorvastatin Calcium 40 MG TAB PO SCH (20:22)
[2022-03-28] MEDS: ALPRAZolam 0.5 MG TAB PO PRN (21:54)
[2022-03-29] MEDS: DOBUTamine 500 mg/250 ml 500 MG in Premix Bag 1 BAG IVPB SCH (04:56)
[2022-03-29] MEDS: ALPRAZolam 0.5 MG TAB PO PRN ×3 (04:56→22:31)
[2022-03-29] MEDS: traMADol HCl 50 MG TAB PO PRN (09:01)
[2022-03-29] MEDS: Potassium Chloride 10 MEQ TAB PO SCH (09:01)
[2022-03-29] MEDS: Furosemide 40 MG TAB PO SCH (09:02)
[2022-03-29] MEDS: Amiodarone 200 MG TAB PO SCH ×3 (09:02→21:20)
[2022-03-29] MEDS: Aspirin 325 MG TAB PO SCH (09:02)
[2022-03-29] MEDS: Polyethylene Glycol 3350 17 GM Packet PO SCH (09:02)
[2022-03-29] MEDS: Bisacodyl 5 MG TAB PO PRN (21:19)
[2022-03-29] MEDS: Tamsulosin HCl 0.4 MG CAP PO SCH (21:19)
[2022-03-29] MEDS: Atorvastatin Calcium 40 MG TAB PO SCH (21:20)
[2022-03-30 04:20] LABS: #Eosinphils 0.5 thou/uL (0.0-0.7); #Lymphocytes 1.2 thou/uL (1.20-3.40); #Monocytes 1.4 thou/uL (0.11-0.59); #Neutrophils 10.8 thou/uL (1.40-6.50); %Basophils 0.1 % (0.0-1.0); %Eosinophils 3.4 % (0.0-10.0); %Lymphocytes 8.6 % (21.0-51.0); %Neutrophils 77.9 % (42.0-75.0); Mean Corpuscular HGB CONC 32.8 g/dL (32.0-36.0); Mean Corpuscular Hemoglobin 31.8 pg (27.0-31.0); Mean Corpuscular Volume 97.1 fL (78.0-98.0); Platelet Count 315 thou/uL (130-400); RBC Distribution Width 13.3 % (11.5-14.5); Red Blood Cell (RBC) Count 2.83 mill/uL (4.70-6.10); White Blood Cell (WBC) Count 13.9 thou/uL (4.8-10.8)
[2022-03-30 04:23] LABS: Anion Gap 13 mmol/L (10-20); BUN (Urea Nitrogen) 11 mg/dL (8.4-25.7); CRP (Inflammatory) 9.83 mg/dL (= or < 0.5); Calc. Creatinine Clearance 123 mL/min (70-130); Calcium 8.1 mg/dL (7.8-10.44); Carbon Dioxide 29 mmol/L (23-31); Chloride 97 mmol/L (98-107); Estimated GFR 96; Glucose 94 mg/dL (83-110); Potassium 3.5 mmol/L (3.5-5.1); Sodium 135 mmol/L (136-145)
[2022-03-30] MEDS: ALPRAZolam 0.5 MG TAB PO PRN ×3 (04:33→21:49)
[2022-03-30] MEDS: Polyethylene Glycol 3350 17 GM Packet PO SCH (10:31)
[2022-03-30] MEDS: Furosemide 40 MG TAB PO SCH (10:31)
[2022-03-30] MEDS: Aspirin 325 MG TAB PO SCH (10:31)
[2022-03-30] MEDS: Amiodarone 200 MG TAB PO SCH ×3 (10:31→21:49)
[2022-03-30] MEDS: Potassium Chloride 10 MEQ TAB PO SCH (11:50)
[2022-03-30] MEDS: traMADol HCl 50 MG TAB PO PRN (11:57)
[2022-03-30] MEDS: Tamsulosin HCl 0.4 MG CAP PO SCH (21:50)
[2022-03-30] MEDS: Bisacodyl 5 MG TAB PO PRN (21:50)
[2022-03-30] MEDS: Atorvastatin Calcium 40 MG TAB PO SCH (21:50)
[2022-03-31] MEDS: ALPRAZolam 0.5 MG TAB PO PRN ×3 (03:11→21:04)
[2022-03-31] MEDS: traMADol HCl 50 MG TAB PO PRN ×2 (03:13→21:04)
[2022-03-31] MEDS: Potassium Chloride 10 MEQ TAB PO SCH (08:20)
[2022-03-31] MEDS: Furosemide 40 MG TAB PO SCH (08:22)
[2022-03-31] MEDS: Aspirin 325 MG TAB PO SCH (08:22)
[2022-03-31] MEDS: Amiodarone 200 MG TAB PO SCH ×3 (08:23→21:04)
[2022-03-31] MEDS: Polyethylene Glycol 3350 17 GM Packet PO SCH (08:23)
[2022-03-31] MEDS: Tamsulosin HCl 0.4 MG CAP PO SCH (21:04)
[2022-03-31] MEDS: Atorvastatin Calcium 40 MG TAB PO SCH (21:04)
[2022-04-01 04:51] LABS: #Eosinphils 0.4 thou/uL (0.0-0.7); #Lymphocytes 1.2 thou/uL (1.20-3.40); #Monocytes 1.3 thou/uL (0.11-0.59); #Neutrophils 9.3 thou/uL (1.40-6.50); %Basophils 0.1 % (0.0-1.0); %Eosinophils 3.6 % (0.0-10.0); %Lymphocytes 9.6 % (21.0-51.0); %Monocytes 10.5 % (0.0-10.0); %Neutrophils 76.2 % (42.0-75.0); Hemoglobin 8.6 g/dL (14.0-18.0); Mean Corpuscular HGB CONC 32.5 g/dL (32.0-36.0); Mean Corpuscular Hemoglobin 31.4 pg (27.0-31.0); Mean Corpuscular Volume 96.8 fL (78.0-98.0); Mean Platelet Volume 5.7 fL (7.4-10.4); Platelet Count 365 thou/uL (130-400); RBC Distribution Width 13.4 % (11.5-14.5); Red Blood Cell (RBC) Count 2.74 mill/uL (4.70-6.10); White Blood Cell (WBC) Count 12.2 thou/uL (4.8-10.8)
[2022-04-01 05:16] LABS: Anion Gap 11 mmol/L (10-20); BUN (Urea Nitrogen) 13 mg/dL (8.4-25.7); Calc. Creatinine Clearance 115 mL/min (70-130); Calcium 7.8 mg/dL (7.8-10.44); Carbon Dioxide 32 mmol/L (23-31); Chloride 98 mmol/L (98-107); Estimated GFR 94; Glucose 95 mg/dL (83-110); Potassium 3.9 mmol/L (3.5-5.1); Sodium 137 mmol/L (136-145)
[2022-04-01] MEDS: traMADol HCl 50 MG TAB PO PRN ×2 (06:29→19:52)
[2022-04-01] MEDS: ALPRAZolam 0.5 MG TAB PO PRN ×2 (06:30→19:53)
[2022-04-01] MEDS: Aspirin 325 MG TAB PO SCH (07:40)
[2022-04-01] MEDS: Furosemide 40 MG TAB PO SCH (07:40)
[2022-04-01] MEDS: Amiodarone 200 MG TAB PO SCH ×3 (07:40→19:54)
[2022-04-01] MEDS: Potassium Chloride 10 MEQ TAB PO SCH (07:40)
[2022-04-01] MEDS: Polyethylene Glycol 3350 17 GM Packet PO SCH (07:49)
[2022-04-01] MEDS: Tamsulosin HCl 0.4 MG CAP PO SCH (19:54)
[2022-04-01] MEDS: Atorvastatin Calcium 40 MG TAB PO SCH (19:54)
[2022-04-02] MEDS: traMADol HCl 50 MG TAB PO PRN ×2 (03:49→19:43)
[2022-04-02] MEDS: ALPRAZolam 0.5 MG TAB PO PRN ×2 (03:49→19:43)
[2022-04-02 04:46] LABS: #Eosinphils 0.4 thou/uL (0.0-0.7); #Lymphocytes 1.2 thou/uL (1.20-3.40); #Monocytes 1.5 thou/uL (0.11-0.59); #Neutrophils 8.9 thou/uL (1.40-6.50); %Basophils 0.4 % (0.0-1.0); %Eosinophils 3.4 % (0.0-10.0); %Lymphocytes 9.9 % (21.0-51.0); %Monocytes 12.1 % (0.0-10.0); %Neutrophils 74.2 % (42.0-75.0); Mean Corpuscular HGB CONC 32.3 g/dL (32.0-36.0); Mean Corpuscular Hemoglobin 31.2 pg (27.0-31.0); Mean Corpuscular Volume 96.6 fL (78.0-98.0); Mean Platelet Volume 5.8 fL (7.4-10.4); Platelet Count 398 thou/uL (130-400); RBC Distribution Width 13.5 % (11.5-14.5); Red Blood Cell (RBC) Count 2.87 mill/uL (4.70-6.10)
[2022-04-02 05:04] LABS: Anion Gap 13 mmol/L (10-20); BUN (Urea Nitrogen) 12 mg/dL (8.4-25.7); Calc. Creatinine Clearance 116 mL/min (70-130); Calcium 8.2 mg/dL (7.8-10.44); Carbon Dioxide 30 mmol/L (23-31); Chloride 96 mmol/L (98-107); Estimated GFR 95; Glucose 102 mg/dL (83-110); Potassium 3.6 mmol/L (3.5-5.1); Sodium 135 mmol/L (136-145)
[2022-04-02] MEDS: Polyethylene Glycol 3350 17 GM Packet PO SCH (08:38)
[2022-04-02] MEDS: Furosemide 40 MG TAB PO SCH (08:38)
[2022-04-02] MEDS: Amiodarone 200 MG TAB PO SCH ×3 (08:39→19:43)
[2022-04-02] MEDS: Potassium Chloride 10 MEQ TAB PO SCH (08:40)
[2022-04-02] MEDS: Aspirin 325 MG TAB PO SCH (08:40)
[2022-04-02] MEDS: Tamsulosin HCl 0.4 MG CAP PO SCH (19:43)
[2022-04-02] MEDS: Atorvastatin Calcium 40 MG TAB PO SCH (19:43)
[2022-04-03] MEDS: ALPRAZolam 0.5 MG TAB PO PRN ×2 (00:58→05:08)
[2022-04-03] MEDS: traMADol HCl 50 MG TAB PO PRN ×2 (00:58→14:24)
[2022-04-03] MEDS: Furosemide 40 MG TAB PO SCH (08:50)
[2022-04-03] MEDS: Potassium Chloride 10 MEQ TAB PO SCH (08:50)
[2022-04-03] MEDS: Amiodarone 200 MG TAB PO SCH ×2 (08:50→14:12)
[2022-04-03] MEDS: Aspirin 325 MG TAB PO SCH (08:50)
[2022-04-03] MEDS: Polyethylene Glycol 3350 17 GM Packet PO SCH (08:50)
[2022-04-03 11:43] VITALS: BMI 31.1
[2022-04-03 15:36] VITALS: BP 107/57; TEMP 97.9
[2022-04-04 15:26] LABS: Actual Bicarbonate (HCO3a) 26.4 mEq/L (22-28); Analyzer IN Cardio OR; Base Excess (BEa) -0.2 mEq/L (-2.0 to +3.0); CO2 Tension 54.3 mmHg (35.0-45.0); Calcium, Ionized (arterial) 1.24 mmol/L (1.12-1.30); Carboxyhemoglobin (COHb) 1.1 gm% (0.0-3.0); Hemoglobin (Hb) 7.8 g/dL (14.0-18.0); O2 Tension (PaO2), arterial 130.5 mmHg (> 70.0)
[2022-04-04 15:27] LABS: Actual Bicarbonate (HCO3a) 27.3 mEq/L (22-28); Analyzer IN Cardio OR; Base Excess (BEa) 1.7 mEq/L (-2.0 to +3.0); CO2 Tension 48.1 mmHg (35.0-45.0); Calcium, Ionized (arterial) 0.98 mmol/L (1.12-1.30); Carboxyhemoglobin (COHb) 0.7 gm% (0.0-3.0); Hemoglobin (Hb) 8.4 g/dL (14.0-18.0); O2 Tension (PaO2), arterial 289.9 mmHg (> 70.0); Potassium - ABG Lab 3.63 mmol/L (3.70-5.30); pH, Arterial 7.37 (7.35-7.45)
[2022-04-04 15:27] LABS: Actual Bicarbonate (HCO3a) 29.7 mEq/L (22-28); Analyzer IN Cardio OR; Base Excess (BEa) 4.3 mEq/L (-2.0 to +3.0); CO2 Tension 48.9 mmHg (35.0-45.0); Calcium, Ionized (arterial) 0.99 mmol/L (1.12-1.30); Carboxyhemoglobin (COHb) 0.5 gm% (0.0-3.0); O2 Tension (PaO2), arterial 397.3 mmHg (> 70.0); Potassium - ABG Lab 4.02 mmol/L (3.70-5.30)
[2022-04-04 15:28] LABS: Actual Bicarbonate (HCO3a) 28.5 mEq/L (22-28); Analyzer IN Cardio OR; CO2 Tension 42.2 mmHg (35.0-45.0); Calcium, Ionized (arterial) 1.06 mmol/L (1.12-1.30); Carboxyhemoglobin (COHb) 0.5 gm% (0.0-3.0); Hemoglobin (Hb) 11.5 g/dL (14.0-18.0); O2 Tension (PaO2), arterial 268.4 mmHg (> 70.0); Potassium - ABG Lab 3.38 mmol/L (3.70-5.30); pH, Arterial 7.45 (7.35-7.45)
[2022-04-04 15:28] LABS: Actual Bicarbonate (HCO3a) 28.4 mEq/L (22-28); Analyzer IN Cardio OR; Base Excess (BEa) 2.5 mEq/L (-2.0 to +3.0); CO2 Tension 49.3 mmHg (35.0-45.0); Calcium, Ionized (arterial) 1.03 mmol/L (1.12-1.30); Carboxyhemoglobin (COHb) 0.8 gm% (0.0-3.0); Hemoglobin (Hb) 12.9 g/dL (14.0-18.0); O2 Tension (PaO2), arterial 227.2 mmHg (> 70.0); Potassium - ABG Lab 3.49 mmol/L (3.70-5.30); pH, Arterial 7.38 (7.35-7.45)
[2022-04-04 15:29] LABS: Puncture Site Arterial Line
[2022-04-04 15:29] LABS: Puncture Site Arterial Line
[2022-04-04 15:30] LABS: Puncture Site Arterial Line
[2022-04-04 15:30] LABS: Puncture Site Arterial Line
[2022-04-04 15:31] LABS: Puncture Site Arterial Line
== END 2022-04-03 19:53 | disposition home or self-care (01) | DRG 233 ==
LOC: ERS 13:44 → IMCU/EMU 16:40 → 2NO 03-12 19:23 → IMCU/EMU 03-14 10:14 → CCU 03-14 10:19 → 2NO 03-18 02:04 → CCU 03-23 10:11 → 2NO 03-28 18:56
PROVIDERS: ADMIT Student in an Organized Health Care Education/Training Program; ATTEND Student in an Organized Health Care Education/Training Program
PROC: 4B02XTZ Measurement of Cardiac Defibrillator, External Approach (ICD-10-PCS; 2022-03-10)
PROC: 8E0ZXY6 Isolation (ICD-10-PCS; 2022-03-10)
PROC: 5A09357 Assistance with Respiratory Ventilation, Less than 24 Consecutive Hours, Continuous Positive Airway Pressure (ICD-10-PCS; 2022-03-12)
PROC: 5A1945Z Respiratory Ventilation, 24-96 Consecutive Hours (ICD-10-PCS; 2022-03-14)
PROC: 0BH18EZ Insertion of Endotracheal Airway into Trachea, Via Natural or Artificial Opening Endoscopic (ICD-10-PCS; 2022-03-14)
PROC: 06HY33Z Insertion of Infusion Device into Lower Vein, Percutaneous Approach (ICD-10-PCS; 2022-03-14)
PROC: 4A023N7 Measurement of Cardiac Sampling and Pressure, Left Heart, Percutaneous Approach (ICD-10-PCS; 2022-03-22)
PROC: B2151ZZ Fluoroscopy of Left Heart using Low Osmolar Contrast (ICD-10-PCS; 2022-03-22)
PROC: B2111ZZ Fluoroscopy of Multiple Coronary Arteries using Low Osmolar Contrast (ICD-10-PCS; 2022-03-22)
PROC: 021209W Bypass Coronary Artery, Three Arteries from Aorta with Autologous Venous Tissue, Open Approach (ICD-10-PCS; principal; 2022-03-23)
PROC: 02100Z9 Bypass Coronary Artery, One Artery from Left Internal Mammary, Open Approach (ICD-10-PCS; 2022-03-23)
PROC: 06BQ0ZZ Excision of Left Saphenous Vein, Open Approach (ICD-10-PCS; 2022-03-23)
PROC: 30233N1 Transfusion of Nonautologous Red Blood Cells into Peripheral Vein, Percutaneous Approach (ICD-10-PCS; 2022-03-23)
PROC: 5A1221Z Performance of Cardiac Output, Continuous (ICD-10-PCS; 2022-03-23)
PROC: 02L70CK Occlusion of Left Atrial Appendage with Extraluminal Device, Open Approach (ICD-10-PCS; 2022-03-23)
PROC: 5A09357 Assistance with Respiratory Ventilation, Less than 24 Consecutive Hours, Continuous Positive Airway Pressure (ICD-10-PCS; 2022-03-25)
PROC: 3E043XZ Introduction of Vasopressor into Central Vein, Percutaneous Approach (ICD-10-PCS; 2022-03-26)
DX: I47.1 Supraventricular tachycardia (principal); I21.9 Acute myocardial infarction, unspecified; I50.43 Acute on chronic combined systolic (congestive) and diastolic (congestive) heart failure; U07.1 COVID-19; J96.01 Acute respiratory failure with hypoxia; R57.0 Cardiogenic shock; J44.1 Chronic obstructive pulmonary disease with (acute) exacerbation; I42.0 Dilated cardiomyopathy; N17.9 Acute kidney failure, unspecified; F17.290 Nicotine dependence, other tobacco product, uncomplicated; I47.2 Ventricular tachycardia; I25.10 Atherosclerotic heart disease of native coronary artery without angina pectoris; I48.0 Paroxysmal atrial fibrillation; I11.0 Hypertensive heart disease with heart failure; E86.0 Dehydration; F90.9 Attention-deficit hyperactivity disorder, unspecified type; E66.01 Morbid (severe) obesity due to excess calories; D64.9 Anemia, unspecified; I08.3 Combined rheumatic disorders of mitral, aortic and tricuspid valves; I25.5 Ischemic cardiomyopathy; R77.8 Other specified abnormalities of plasma proteins; N40.1 Benign prostatic hyperplasia with lower urinary tract symptoms; R33.8 Other retention of urine; Z68.31 Body mass index [BMI] 31.0-31.9, adult; Z95.810 Presence of automatic (implantable) cardiac defibrillator; Z98.84 Bariatric surgery status; Z79.899 Other long term (current) drug therapy; Z79.82 Long term (current) use of aspirin; Z78.1 Physical restraint status
CPT/HCPCS: 36415; 36416; 36430; 36600; 71045; 71275; 80048; 80053; 80061; 80306; 80307; 81001; 82010; 82550; 82553; 82805; 83036; 83605; 83735; 83880; 84100; 84443; 84484; 85025; 85347; 85610; 85730; 86140; 86850; 86900; 86901; 86921; 93005; 93010; 93306; 93454; 94002; 94003; 94640; 94660; 94664; 99152; C1713; C1751; C1769; C1776; C1894; C9113; J0171; J0282; J0690; J1160; J1250; J1265; J1642; J1644; J1650; J1815; J1940; J2001; J2150; J2250; J2260; J2270; J2405; J2440; J2704; J2920; J3010; J3370; J3475; J3480; J3490; J3535; J7030; J7050; J7070; J7120; J7620; P9016; P9045; P9047; Q9967; S0017; S0028; U0003; U0005

== ENCOUNTER 2022-04-09 09:15 | Outpatient (CLI) | payer OTHER | END 2022-04-09 09:16 | disposition home or self-care (01) | LOC: ULT 09:15 → HS RAD 09:16 | PROVIDERS: ATTEND Student in an Organized Health Care Education/Training Program | DX: R22.42 Localized swelling, mass and lump, left lower limb (principal) ==

== ENCOUNTER 2022-04-26 22:20 | Inpatient (IN) | payer OTHER ==
[2022-04-26 23:11] LABS: #Basophils 0.1 thou/uL (0.0-0.2); #Eosinphils 0.7 thou/uL (0.0-0.7); #Lymphocytes 1.8 thou/uL (1.20-3.40); #Monocytes 1.2 thou/uL (0.11-0.59); #Neutrophils 10.2 thou/uL (1.40-6.50); %Basophils 0.4 % (0.0-1.0); %Lymphocytes 12.6 % (21.0-51.0); %Monocytes 8.7 % (0.0-10.0); %Neutrophils 73.4 % (42.0-75.0); Hemoglobin 10.7 g/dL (14.0-18.0); Mean Corpuscular HGB CONC 29.8 g/dL (32.0-36.0); Mean Corpuscular Hemoglobin 28.2 pg (27.0-31.0); Mean Corpuscular Volume 94.5 fL (78.0-98.0); Mean Platelet Volume 6.1 fL (7.4-10.4); Platelet Count 387 thou/uL (130-400); RBC Distribution Width 14.2 % (11.5-14.5); White Blood Cell (WBC) Count 13.9 thou/uL (4.8-10.8)
[2022-04-26 23:28] LABS: ALT (SGPT) 15 U/L (8-55); AST (SGOT) 19 U/L (5-34); Albumin 3.3 g/dL (3.4-4.8); Alkaline Phosphatase 150 U/L (40-110); Anion Gap 15 mmol/L (10-20); BUN (Urea Nitrogen) 11 mg/dL (8.4-25.7); Calc. Creatinine Clearance 0 mL/min (70-130); Calcium 8.7 mg/dL (7.8-10.44); Carbon Dioxide 26 mmol/L (23-31); Chloride 104 mmol/L (98-107); Estimated GFR 91; Globulin 3.3 g/dL (2.4-3.5); Glucose 110 mg/dL (83-110); Potassium 4.1 mmol/L (3.5-5.1); Protein, Total 6.6 g/dL (5.8-8.1); Sodium 141 mmol/L (136-145)
[2022-04-26 23:50] LABS: CKMB 2.7 ng/mL (0-6.6)
[2022-04-27] MEDS ORDERED: Diltiazem 125 MG/25 ML ONE ×2 (01:06→11:20)
[2022-04-27] MEDS ORDERED: methylPREDNISolone Sod Succ/PF 125 MG/2 ML VIAL ONE (01:06)
[2022-04-27] MEDS ORDERED: Furosemide 40 MG/4 ML VIAL ONE ×2 (01:06→06:45)
[2022-04-27] MEDS ORDERED: Magnesium 2 GM/50 ML BAG (IN WATER) ONE (01:06)
[2022-04-27] MEDS ORDERED: Aspirin Chewable 81 MG TAB ONE (01:23)
[2022-04-27 02:50] LABS: Troponin I 0.085 ng/mL (< 0.028)
[2022-04-27 04:19] LABS: SARS-CoV-2 NAA Rapid Test Not Detected (NotDetected)
[2022-04-27] MEDS ORDERED: Acetaminophen 650 MG Suppository PR PRN (04:32)
[2022-04-27] MEDS ORDERED: Ondansetron PF 4 MG/2 ML Vial IVP PRN (04:32)
[2022-04-27] MEDS ORDERED: Ondansetron ODT 4 MG TAB PO PRN (04:32)
[2022-04-27] MEDS ORDERED: Acetaminophen 325 MG TAB PO PRN (04:32)
[2022-04-27 04:33] LABS: Actual Bicarbonate (HCO3a) 28.5 mEq/L (22-28); Analyzer IN Cardio ER; Base Excess (BEa) 4.7 mEq/L (-2.0 to +3.0); CO2 Tension 38.9 mmHg (35.0-45.0); Calcium, Ionized (arterial) 1.08 mmol/L (1.12-1.30); Carboxyhemoglobin (COHb) 0.7 gm% (0.0-3.0); Hemoglobin (Hb) 11.4 g/dL (14.0-18.0); pH, Arterial 7.48 (7.35-7.45)
[2022-04-27 04:34] LABS: Puncture Site LBA
[2022-04-27 04:35] LABS: ALV-art Gradient 147.055 mmHg (0-20)
[2022-04-27] MEDS ORDERED: cefTRIAXone\\ROCEPHIN 1 GM VIAL ONE (05:04)
[2022-04-27] MEDS: cefTRIAXone\\ROCEPHIN 1 GM in Sodium Chloride 0.9% 100 ML IVPB SCH (05:06)
[2022-04-27 06:08] LABS: #Eosinphils 0.1 thou/uL (0.0-0.7); #Lymphocytes 0.6 thou/uL (1.20-3.40); #Monocytes 0.1 thou/uL (0.11-0.59); #Neutrophils 11.3 thou/uL (1.40-6.50); %Basophils 0.1 % (0.0-1.0); %Eosinophils 0.5 % (0.0-10.0); %Lymphocytes 4.7 % (21.0-51.0); %Monocytes 0.8 % (0.0-10.0); %Neutrophils 93.8 % (42.0-75.0); Hemoglobin 10.3 g/dL (14.0-18.0); Mean Corpuscular HGB CONC 30.6 g/dL (32.0-36.0); Mean Corpuscular Hemoglobin 28.7 pg (27.0-31.0); Mean Corpuscular Volume 93.9 fL (78.0-98.0); Mean Platelet Volume 6.2 fL (7.4-10.4); Platelet Count 369 thou/uL (130-400); RBC Distribution Width 14.3 % (11.5-14.5); Red Blood Cell (RBC) Count 3.59 mill/uL (4.70-6.10); White Blood Cell (WBC) Count 12.1 thou/uL (4.8-10.8)
[2022-04-27 06:27] LABS: Anion Gap 14 mmol/L (10-20); BUN (Urea Nitrogen) 10 mg/dL (8.4-25.7); Calc. Creatinine Clearance 0 mL/min (70-130); Calcium 8.2 mg/dL (7.8-10.44); Carbon Dioxide 29 mmol/L (23-31); Chloride 100 mmol/L (98-107); Estimated GFR 93; Glucose 204 mg/dL (83-110); Potassium 3.5 mmol/L (3.5-5.1); Sodium 139 mmol/L (136-145)
[2022-04-27 06:32] LABS: Troponin I 0.064 ng/mL (< 0.028)
[2022-04-27] MEDS: Furosemide 40 MG/4 ML VIAL SLOW IVP SCH ×2 (06:50→15:15)
[2022-04-27] MEDS ORDERED: Lorazepam 1 MG TAB ONE (08:47)
[2022-04-27] MEDS: Lorazepam 0.5 MG TAB PO PRN ×3 (08:53→22:57)
[2022-04-27] MEDS ORDERED: methylPREDNISolone Sod Succ 40 MG VIAL ONE (09:40)
[2022-04-27] MEDS ORDERED: Enoxaparin Sodium 40 MG/0.4 ML SYRINGE ONE (09:40)
[2022-04-27] MEDS: Enoxaparin Sodium 40 MG/0.4 ML SYRINGE SC SCH (09:43)
[2022-04-27 15:53] VITALS: BMI 29.7
[2022-04-27] MEDS: Carvedilol 3.125 MG TAB PO SCH (17:13)
[2022-04-27] MEDS: Mometasone 100 MCG/Formoterol 5 MCG 120 PUFF INHALER INH SCH (18:09)
[2022-04-27] MEDS: Mirtazapine 15 MG TAB PO SCH (20:35)
[2022-04-27] MEDS: Atorvastatin Calcium 40 MG TAB PO SCH (20:35)
[2022-04-27] MEDS: Tamsulosin HCl 0.4 MG CAP PO SCH (20:36)
[2022-04-27] MEDS ORDERED: Melatonin 3 MG TAB PO SCH (21:00)
[2022-04-27] MEDS ORDERED: Melatonin 3 MG TAB PO PRN (21:02)
[2022-04-27 23:47] LABS: Actual Bicarbonate (HCO3a) 27.4 mEq/L (22-28); Calcium, Ionized (arterial) 1.16 mmol/L (1.12-1.30); Carboxyhemoglobin (COHb) 0.9 gm% (0.0-3.0); Hemoglobin (Hb) 13.2 g/dL (14.0-18.0); O2 Tension (PaO2), arterial 77.1 mmHg (> 70.0); Potassium - ABG Lab 4.02 mmol/L (3.70-5.30); pH, Arterial 7.26 (7.35-7.45)
[2022-04-27 23:50] LABS: CO2 Tension 62.5 mmHg (35.0-45.0); Puncture Site LRA
[2022-04-27 23:51] LABS: ALV-art Gradient 72.935 mmHg (0-20)
[2022-04-28] MEDS ORDERED: Furosemide 40 MG/4 ML VIAL SLOW IVP SCH (00:15)
[2022-04-28 01:38] LABS: Base Excess (BEa) 1.1 mEq/L (-2.0 to +3.0); CO2 Tension 54.6 mmHg (35.0-45.0); Calcium, Ionized (arterial) 1.15 mmol/L (1.12-1.30); Carboxyhemoglobin (COHb) 1.2 gm% (0.0-3.0); Hemoglobin (Hb) 12.9 g/dL (14.0-18.0); O2 Tension (PaO2), arterial 71.3 mmHg (> 70.0); Potassium - ABG Lab 3.87 mmol/L (3.70-5.30); pH, Arterial 7.33 (7.35-7.45)
[2022-04-28 01:42] LABS: Puncture Site RRA
[2022-04-28 04:13] LABS: Anion Gap 16 mmol/L (10-20); BUN (Urea Nitrogen) 22 mg/dL (8.4-25.7); Calc. Creatinine Clearance 60 mL/min (70-130); Calcium 8.6 mg/dL (7.8-10.44); Carbon Dioxide 27 mmol/L (23-31); Chloride 99 mmol/L (98-107); Estimated GFR 53; Glucose 242 mg/dL (83-110); Sodium 138 mmol/L (136-145)
[2022-04-28 04:42] LABS: Hemoglobin 12.2 g/dL (14.0-18.0); MDiff Complete? YES; Mean Corpuscular HGB CONC 29.6 g/dL (32.0-36.0); Mean Corpuscular Hemoglobin 28.3 pg (27.0-31.0); Mean Corpuscular Volume 95.8 fL (78.0-98.0); Mean Platelet Volume 6.6 fL (7.4-10.4); Platelet Count 416 thou/uL (130-400); RBC Distribution Width 14.7 % (11.5-14.5); Red Blood Cell (RBC) Count 4.29 mill/uL (4.70-6.10); White Blood Cell (WBC) Count 21.3 thou/uL (4.8-10.8)
[2022-04-28 04:43] LABS: Anisocytosis SLIGHT = 6-15 cells (100X) (0-5/hpf); Band 1 % (5-11); Hypochromia SLIGHT = 6-15 cells (100X) (0-5/hpf); Lymphocytes 9 % (21-51); Monocytes 10 % (0-10); Neutrophil 80 % (42-75); Platelet Morphology Comment Appears Increased; Polychromasia SLIGHT = 2-3 cells (100X) (0-2/hpf)
[2022-04-28] MEDS: Furosemide 40 MG/4 ML VIAL SLOW IVP SCH ×2 (05:00→13:45)
[2022-04-28] MEDS: cefTRIAXone\\ROCEPHIN 1 GM in Sodium Chloride 0.9% 100 ML IVPB SCH (05:00)
[2022-04-28] MEDS: Mometasone 100 MCG/Formoterol 5 MCG 120 PUFF INHALER INH SCH ×2 (07:51→18:44)
[2022-04-28] MEDS: Aspirin Chewable 81 MG TAB PO SCH (08:26)
[2022-04-28] MEDS: Carvedilol 3.125 MG TAB PO SCH ×2 (08:26→16:51)
[2022-04-28] MEDS: Amiodarone 200 MG TAB PO SCH (08:26)
[2022-04-28] MEDS: Enoxaparin Sodium 40 MG/0.4 ML SYRINGE SC SCH (08:26)
[2022-04-28] MEDS: methylPREDNISolone Sod Succ 40 MG VIAL IVP SCH (08:26)
[2022-04-28] MEDS: Lorazepam 0.5 MG TAB PO PRN ×2 (08:44→16:54)
[2022-04-28] MEDS: Atorvastatin Calcium 40 MG TAB PO SCH (20:36)
[2022-04-28] MEDS: Mirtazapine 15 MG TAB PO SCH (20:37)
[2022-04-28] MEDS: Tamsulosin HCl 0.4 MG CAP PO SCH (20:37)
[2022-04-28] MEDS: ALPRAZolam 0.5 MG TAB PO PRN (21:46)
[2022-04-29 04:08] LABS: #Eosinphils 0.1 thou/uL (0.0-0.7); #Lymphocytes 1.7 thou/uL (1.20-3.40); #Monocytes 1.2 thou/uL (0.11-0.59); #Neutrophils 10.7 thou/uL (1.40-6.50); %Basophils 0.2 % (0.0-1.0); %Eosinophils 0.4 % (0.0-10.0); %Lymphocytes 12.5 % (21.0-51.0); %Monocytes 8.9 % (0.0-10.0); Hemoglobin 10.1 g/dL (14.0-18.0); Mean Corpuscular Volume 93.7 fL (78.0-98.0); Mean Platelet Volume 6.4 fL (7.4-10.4); Platelet Count 357 thou/uL (130-400); RBC Distribution Width 14.4 % (11.5-14.5); Red Blood Cell (RBC) Count 3.47 mill/uL (4.70-6.10); White Blood Cell (WBC) Count 13.8 thou/uL (4.8-10.8)
[2022-04-29 04:22] LABS: Anion Gap 14 mmol/L (10-20); BUN (Urea Nitrogen) 28 mg/dL (8.4-25.7); Calc. Creatinine Clearance 73 mL/min (70-130); Calcium 8.1 mg/dL (7.8-10.44); Carbon Dioxide 31 mmol/L (23-31); Chloride 98 mmol/L (98-107); Estimated GFR 68; Glucose 138 mg/dL (83-110); Potassium 3.7 mmol/L (3.5-5.1); Sodium 139 mmol/L (136-145)
[2022-04-29] MEDS: cefTRIAXone\\ROCEPHIN 1 GM in Sodium Chloride 0.9% 100 ML IVPB SCH (05:41)
[2022-04-29] MEDS: Furosemide 40 MG/4 ML VIAL SLOW IVP SCH ×2 (05:41→14:58)
[2022-04-29] MEDS: Mometasone 100 MCG/Formoterol 5 MCG 120 PUFF INHALER INH SCH ×2 (07:24→18:32)
[2022-04-29] MEDS: Aspirin Chewable 81 MG TAB PO SCH (08:42)
[2022-04-29] MEDS: Amiodarone 200 MG TAB PO SCH (08:42)
[2022-04-29] MEDS: methylPREDNISolone Sod Succ 40 MG VIAL IVP SCH (08:42)
[2022-04-29] MEDS: Carvedilol 3.125 MG TAB PO SCH ×2 (08:42→17:08)
[2022-04-29] MEDS: Enoxaparin Sodium 40 MG/0.4 ML SYRINGE SC SCH (08:42)
[2022-04-29] MEDS ORDERED: Non-Formulary Item 1 EACH (Iron [Iron] 18 MG Tablet) PO SCH (09:00)
[2022-04-29] MEDS: ALPRAZolam 0.5 MG TAB PO PRN ×2 (09:02→21:01)
[2022-04-29] MEDS: Mirtazapine 15 MG TAB PO SCH (21:01)
[2022-04-29] MEDS: Atorvastatin Calcium 40 MG TAB PO SCH (21:01)
[2022-04-29] MEDS: Tamsulosin HCl 0.4 MG CAP PO SCH (21:01)
[2022-04-30 03:54] LABS: #Lymphocytes 1.4 thou/uL (1.20-3.40); #Neutrophils 9.7 thou/uL (1.40-6.50); %Eosinophils 0.1 % (0.0-10.0); %Lymphocytes 11.2 % (21.0-51.0); %Monocytes 8.1 % (0.0-10.0); %Neutrophils 80.6 % (42.0-75.0); Hemoglobin 10.5 g/dL (14.0-18.0); Mean Corpuscular HGB CONC 31.6 g/dL (32.0-36.0); Mean Corpuscular Hemoglobin 29.9 pg (27.0-31.0); Mean Corpuscular Volume 94.7 fL (78.0-98.0); Mean Platelet Volume 6.4 fL (7.4-10.4); Platelet Count 351 thou/uL (130-400); White Blood Cell (WBC) Count 12.1 thou/uL (4.8-10.8)
[2022-04-30 04:10] LABS: Anion Gap 13 mmol/L (10-20); BUN (Urea Nitrogen) 26 mg/dL (8.4-25.7); Calc. Creatinine Clearance 89 mL/min (70-130); Calcium 8.3 mg/dL (7.8-10.44); Carbon Dioxide 33 mmol/L (23-31); Chloride 97 mmol/L (98-107); Estimated GFR 85; Glucose 140 mg/dL (83-110); Potassium 3.8 mmol/L (3.5-5.1); Sodium 139 mmol/L (136-145)
[2022-04-30] MEDS: cefTRIAXone\\ROCEPHIN 1 GM in Sodium Chloride 0.9% 100 ML IVPB SCH (05:28)
[2022-04-30] MEDS: Furosemide 40 MG/4 ML VIAL SLOW IVP SCH ×2 (05:28→14:40)
[2022-04-30] MEDS: Mometasone 100 MCG/Formoterol 5 MCG 120 PUFF INHALER INH SCH ×2 (07:00→18:37)
[2022-04-30] MEDS: Enoxaparin Sodium 40 MG/0.4 ML SYRINGE SC SCH (09:01)
[2022-04-30] MEDS: Amiodarone 200 MG TAB PO SCH (09:01)
[2022-04-30] MEDS: Aspirin Chewable 81 MG TAB PO SCH (09:01)
[2022-04-30] MEDS: methylPREDNISolone Sod Succ 40 MG VIAL IVP SCH (09:01)
[2022-04-30] MEDS: Carvedilol 3.125 MG TAB PO SCH ×2 (09:01→16:50)
[2022-04-30] MEDS ORDERED: Dextrose 50% Abboject 50 ML SYRINGE SLOW IVP PRN (16:57)
[2022-04-30] MEDS ORDERED: HumaLOG 300 UNITS/3 ML VIAL SC PRN ×2 (16:57)
[2022-04-30] MEDS ORDERED: Dextrose 5% in Water 1,000 ML IV PRN (16:57)
[2022-04-30] MEDS: ALPRAZolam 0.5 MG TAB PO PRN (17:34)
[2022-04-30] MEDS: Mirtazapine 15 MG TAB PO SCH (21:06)
[2022-04-30] MEDS: Tamsulosin HCl 0.4 MG CAP PO SCH (21:06)
[2022-04-30] MEDS: Atorvastatin Calcium 40 MG TAB PO SCH (21:06)
[2022-05-01 03:46] LABS: Anion Gap 11 mmol/L (10-20); BUN (Urea Nitrogen) 26 mg/dL (8.4-25.7); Calc. Creatinine Clearance 102 mL/min (70-130); Carbon Dioxide 35 mmol/L (23-31); Chloride 98 mmol/L (98-107); Potassium 3.7 mmol/L (3.5-5.1); Sodium 140 mmol/L (136-145)
[2022-05-01 03:47] LABS: Calcium 8.3 mg/dL (7.8-10.44); Estimated GFR 92; Glucose 121 mg/dL (83-110)
[2022-05-01] MEDS: cefTRIAXone\\ROCEPHIN 1 GM in Sodium Chloride 0.9% 100 ML IVPB SCH (05:48)
[2022-05-01] MEDS: Mometasone 100 MCG/Formoterol 5 MCG 120 PUFF INHALER INH SCH ×2 (07:56→18:34)
[2022-05-01] MEDS: Furosemide 40 MG TAB PO SCH (08:34)
[2022-05-01] MEDS: Amiodarone 200 MG TAB PO SCH (08:34)
[2022-05-01] MEDS: Carvedilol 3.125 MG TAB PO SCH ×2 (08:34→17:34)
[2022-05-01] MEDS: Enoxaparin Sodium 40 MG/0.4 ML SYRINGE SC SCH (08:34)
[2022-05-01] MEDS: Aspirin Chewable 81 MG TAB PO SCH (08:34)
[2022-05-01] MEDS: predniSONE 20 MG TAB PO SCH (08:34)
[2022-05-01] MEDS ORDERED: Empagliflozin 10 MG TAB PO SCH (10:30)
[2022-05-01] MEDS ORDERED: Spironolactone 25 MG TAB PO SCH (10:30)
[2022-05-01] MEDS: Atorvastatin Calcium 40 MG TAB PO SCH (20:53)
[2022-05-01] MEDS: Tamsulosin HCl 0.4 MG CAP PO SCH (20:53)
[2022-05-01] MEDS: Mirtazapine 15 MG TAB PO SCH (20:53)
[2022-05-01] MEDS: Senokot S 8.6-50 MG TAB PO SCH (20:54)
[2022-05-01] MEDS: Polyethylene Glycol 3350 17 GM Packet PO SCH (20:54)
[2022-05-02] MEDS: cefTRIAXone\\ROCEPHIN 1 GM in Sodium Chloride 0.9% 100 ML IVPB SCH (05:22)
[2022-05-02] MEDS: Mometasone 100 MCG/Formoterol 5 MCG 120 PUFF INHALER INH SCH ×2 (07:42→18:42)
[2022-05-02] MEDS ORDERED: Spironolactone 25 MG TAB PO SCH ×4 (08:00→10:00)
[2022-05-02 08:12] LABS: Anion Gap 11 mmol/L (10-20); BUN (Urea Nitrogen) 21 mg/dL (8.4-25.7); Calc. Creatinine Clearance 104 mL/min (70-130); Calcium 8.3 mg/dL (7.8-10.44); Carbon Dioxide 35 mmol/L (23-31); Chloride 95 mmol/L (98-107); Estimated GFR 92; Glucose 128 mg/dL (83-110); Potassium 3.7 mmol/L (3.5-5.1); Sodium 137 mmol/L (136-145)
[2022-05-02] MEDS ORDERED: Empagliflozin 10 MG TAB PO SCH (09:15)
[2022-05-02] MEDS ORDERED: Carvedilol 3.125 MG TAB PO SCH ×2 (09:38→09:45)
[2022-05-02] MEDS ORDERED: predniSONE 20 MG TAB PO SCH ×2 (09:46→10:00)
[2022-05-02] MEDS: ALPRAZolam 0.5 MG TAB PO PRN (11:23)
[2022-05-02] MEDS: Senokot S 8.6-50 MG TAB PO SCH ×2 (11:27→20:36)
[2022-05-02] MEDS: Amiodarone 200 MG TAB PO SCH (11:27)
[2022-05-02] MEDS: Aspirin Chewable 81 MG TAB PO SCH (11:27)
[2022-05-02] MEDS: Furosemide 40 MG TAB PO SCH (11:28)
[2022-05-02] MEDS: Enoxaparin Sodium 40 MG/0.4 ML SYRINGE SC SCH (11:29)
[2022-05-02] MEDS: Carvedilol 3.125 MG TAB PO SCH ×2 (11:50→17:02)
[2022-05-02] MEDS: predniSONE 20 MG TAB PO SCH (11:50)
[2022-05-02] MEDS: Atorvastatin Calcium 40 MG TAB PO SCH (20:36)
[2022-05-02] MEDS: Polyethylene Glycol 3350 17 GM Packet PO SCH (20:37)
[2022-05-02] MEDS: Tamsulosin HCl 0.4 MG CAP PO SCH (20:37)
[2022-05-02] MEDS: Mirtazapine 15 MG TAB PO SCH (20:37)
[2022-05-03] MEDS: Mometasone 100 MCG/Formoterol 5 MCG 120 PUFF INHALER INH SCH (07:57)
[2022-05-03] MEDS ORDERED: predniSONE 20 MG TAB PO SCH (08:00)
[2022-05-03] MEDS ORDERED: Spironolactone 25 MG TAB PO SCH (08:00)
[2022-05-03] MEDS ORDERED: Empagliflozin 10 MG TAB PO SCH (09:00)
[2022-05-03] MEDS: Senokot S 8.6-50 MG TAB PO SCH (09:27)
[2022-05-03] MEDS: Furosemide 40 MG TAB PO SCH (09:27)
[2022-05-03] MEDS: Amiodarone 200 MG TAB PO SCH (09:29)
[2022-05-03] MEDS: Aspirin Chewable 81 MG TAB PO SCH (09:29)
[2022-05-03] MEDS: Carvedilol 3.125 MG TAB PO SCH (09:30)
[2022-05-03] MEDS: Enoxaparin Sodium 40 MG/0.4 ML SYRINGE SC SCH (09:35)
[2022-05-03 10:53] VITALS: BP 121/74
[2022-05-03 14:04] VITALS: TEMP 98.1
== END 2022-05-03 16:30 | disposition home health service (06) | DRG 291 ==
LOC: ERS 22:20 → ERHOLD 04-27 03:35 → OBSVTOIN 04-27 04:50 → 2NO 04-27 14:52 → IMCU/EMU 04-28 02:07
PROVIDERS: ADMIT Student in an Organized Health Care Education/Training Program; ATTEND Family Medicine
PROC: 5A09357 Assistance with Respiratory Ventilation, Less than 24 Consecutive Hours, Continuous Positive Airway Pressure (ICD-10-PCS; principal; 2022-04-27)
DX: I11.0 Hypertensive heart disease with heart failure (principal); I50.23 Acute on chronic systolic (congestive) heart failure; J96.01 Acute respiratory failure with hypoxia; J96.02 Acute respiratory failure with hypercapnia; J44.1 Chronic obstructive pulmonary disease with (acute) exacerbation; I48.11 Longstanding persistent atrial fibrillation; I95.9 Hypotension, unspecified; Z66 Do not resuscitate; E11.9 Type 2 diabetes mellitus without complications; I25.10 Atherosclerotic heart disease of native coronary artery without angina pectoris; I25.5 Ischemic cardiomyopathy; N28.9 Disorder of kidney and ureter, unspecified; E78.5 Hyperlipidemia, unspecified; Z20.822 Contact with and (suspected) exposure to COVID-19; I25.2 Old myocardial infarction; Z95.1 Presence of aortocoronary bypass graft; Z79.82 Long term (current) use of aspirin; Z79.899 Other long term (current) drug therapy; Z87.891 Personal history of nicotine dependence; Z95.810 Presence of automatic (implantable) cardiac defibrillator
CPT/HCPCS: 36415; 36416; 36600; 71045; 80048; 80053; 82553; 82805; 83735; 83880; 84484; 85025; 93005; 93010; 93306; 94640; 94660; 96374; 96375; J0696; J1650; J1815; J1940; J2920; J2930; J3475; J3490; J7512; J7620; U0002